=== PATIENT | female | born 1970 | race American Indian/Alaskan Native ===

== ENCOUNTER 2018-05-10 08:57 | Emergency (ER) | payer MEDICAID, OTHER, SELFPAY ==
[2018-05-10 09:00] VITALS: BP 104/87; PULSE 80; RESP 14; TEMP 36.6; O2SAT 100; BMI 44.2
--- NOTE | 2018-05-10 09:08 | DI.RAD.S_ITS ---
PROCEDURE: XR CHEST 2V INDICATIONS: anterior chest pain TECHNIQUE: 2 views of the chest were acquired. COMPARISON: [facility], , CHEST 1 VIEW, 02/26/2012, 0:31. FINDINGS: Surgical changes and devices: None. Lungs and pleura: No pleural effusions or pneumothorax. Lungs are clear. Mediastinum: Mediastinal contours are normal. Heart size is normal. Bones and chest wall: No suspicious bony abnormalities. Soft tissues appear unremarkable. IMPRESSION: No acute pulmonary process. Dictated by: Charlotte Garnt M.D. on 05/10/2018 at 9:46 Approved by: Charlotte Grant M.D. on 05/10/2018 at 9:46
[2018-05-10 09:20] LABS: Add Manual Diff / Slide Review NO; Basophils Percent Auto 0.6 % (0-2); Eosinophils Percent Auto 2.7 % (2-4); Hematocrit 40.6 % (36-46); Hemoglobin 13.3 g/dL (12.0-16.0); Lymphocytes Percent Auto 33.3 % (25-40); Mean Corpuscular HGB Conc 32.8 % (30-36); Mean Corpuscular Hemoglobin 30.3 PG (26-34); Mean Corpuscular Volume 92.5 fL (80-100); Monocytes Percent Auto 5.2 % (3-14); Neutrophils Absolute Auto 5200 /uL (1500-7000); Neutrophils Percent Auto 58.2 % (50-75); Platelet Count 356 X10^3/uL (150-400); Red Blood Cell Count 4.39 X10^6/uL (4.0-5.2); Red Cell Distribution Width 14.9 % (11.6-14.8); White Blood Cell Count 8.9 X10^3/uL (4.5-11.0)
[2018-05-10 09:31] LABS: Alanine Aminotransferase 20 IU/L (9-52); Albumin 4.2 g/dL (3.5-5.0); Albumin Globulin Ratio 1.1 (1.0-2.8); Alkaline Phosphatase 73 U/L (38-126); Aspartate Aminotransferase 22 IU/L (14-36); BUN Creatinine Ratio 17.5 (6-22); Bilirubin Total 0.4 mg/dL (0.2-1.3); Blood Urea Nitrogen 14 mg/dL (7-17); Calcium 8.7 mg/dL (8.4-10.2); Carbon Dioxide 25 mmol/L (22-32); Chloride 108 mmol/L (98-107); Creatine Kinase 68 U/L (30-135); Estimated Glomerular Filt Rate > 60.0 mL/min (>60); Globulin 3.7 g/dL (1.7-4.1); Glucose 103 mg/dL (70-100); HEMOLYSIS < 15 (0-50); Lipase 72 U/L (23-300); Potassium 4.3 mmol/L (3.4-5.1); Sodium 146 mmol/L (137-145); Total Protein 7.9 g/dL (6.3-8.2)
[2018-05-10] MEDS: ASPIRIN 81 MG TAB 324 MG PO (09:38)
[2018-05-10] MEDS: SODIUM CHLORIDE 0.9% 1,000 ML 150 ML IV (09:39)
[2018-05-10 09:43] LABS: Troponin I < 0.012 ng/mL (0.01-0.034)
--- NOTE | 2018-05-10 09:48 | ED.CHESTPAIN ---
HPI - Chest Pain General Chief Complaint: Chest Pain Stated Complaint: CHEST PAIN Time Seen by Provider: 05/10/18 08:58 Source: patient and family Mode of arrival: ambulatory Limitations: no limitations History of Present Illness HPI narrative: 47-year-old female presents with multiple family members in the chief complaint of anterior chest pain that is sharp and stabbing in nature which started yesterday. She has recently had upper respiratory type symptoms including runny nose, sneezing and cough. Her pain is worse with motion, deep breath, palpation and cough. She denies fever or chills. She is not dizzy nor weak or lightheaded. She has had some nausea but denies any vomiting or diarrhea. MD complaint: chest pain Onset (ago): day(s) Duration: intermittent Onset: during rest Severity: mild Quality: sharp Pain radiation: none Relieving factors: remaining still Exacerbating factors: inspiration, palpation and movement Context: recent illness Treatments prior to arrival chest pain: none Related Data On Oral Contraceptives: No Home Medications Medication Instructions Recorded Confirmed No Known Home Medications 05/10/18 05/10/18 Previous Rx's Medication Instructions Recorded ketorolac 10 mg PO Q6H PRN #14 tab 05/10/18 Allergies Allergy/AdvReac Type Severity Reaction Status Date / Time dicyclomine [DICYCLOMINE] Allergy Unknown Unverified 08/28/17 12:20 ibuprofen [IBUPROFEN] Allergy Unknown Unverified 08/28/17 12:20 meloxicam [MELOXICAM] Allergy Unknown Unverified 08/28/17 12:20 Review of Systems Review of Systems All systems reviewed & are unremarkable except as noted in HPI and below Constitutional Denies chills, Denies fever(s), Denies lethargy and Denies weakness Eyes Denies change in vision, Denies eye discharge, Denies irritation and Denies loss of vision ENT Ears, Nose, Mouth, and Throat: Denies change in voice, Denies neck pain and Denies sore throat Cardiovascular Reports chest pain, Denies irregular heart rhythm, Denies lightheadedness, Denies palpitations, Denies dyspnea, Denies dyspnea on exertion and Denies orthopnea Respiratory Reports cough, Reports pain on inspiration, Reports pain with cough, Denies dyspnea, Denies dyspnea on exertion and Denies wheezing Gastrointestinal Gastrointestinal: Denies abdominal pain, Denies change in bowel habits, Denies diarrhea, Denies nausea and Denies vomiting Genitourinary Denies hematuria, Denies flank pain, Denies urinary incontinence and Denies urinary urgency Musculoskeletal Denies neck pain Integumentary/Breasts Denies pruritus, Denies erythema, Denies rash and Denies wounds Neurologic Denies confusion, Denies loss of vision and Denies weakness Psychiatric Denies anxiety, Denies confusion, Denies depression, Denies homicidal ideation and Denies suicidal ideation Endocrine Denies palpitations Hematologic/Lymphatic Denies easy bruising Allergic/Immunologic Denies wheezing [facility] Social History Smoking Status: Former smoker Exam Narrative Exam Narrative: GENERAL: 47-year-old female, former smoker, morbidly obese, in mild distress HEAD: Atraumatic. Normocephalic. No temporal or scalp tenderness. EYES: Pupils equal round and reactive. Extraocular motions intact. No scleral icterus. No injection or drainage. ENT: Nose without bleeding, purulent drainage or septal hematoma. Throat without erythema, tonsillar hypertrophy or exudate. Uvula midline. Airway patent. NECK: Trachea midline. No JVD or lymphadenopathy. Supple, nontender, no meningeal signs. CARDIOVASCULAR: Regular rate and rhythm without murmurs, gallops, or rubs. Sharp, reproducible pain to palpation, motion and changing position RESPIRATORY: Clear to auscultation. Breath sounds equal bilaterally. No wheezes, rales, or rhonchi. GASTROINTESTINAL: Abdomen soft, non-tender, nondistended. No hepato-splenomegaly, or palpable masses. No guarding. EXTREMITIES: No clubbing, cyanosis, or edema. No joint tenderness, effusion, or edema noted. BACK: Nontender without deformity or crepitance. No flank tenderness. NEURO: AOx3. SKIN: No rash or erythema. Initial Vital Signs Initial Vital Signs: Vital Signs Temperature 97.8 F 05/10/18 09:00 Pulse Rate 80 05/10/18 09:00 Respiratory Rate 14 05/10/18 09:00 Blood Pressure 104/87 05/10/18 09:00 Pulse Oximetry 100 05/10/18 09:00 Course Orders Ordered: ED Orders 05/10/18 09:07 EKG-12 Lead Stat 05/10/18 09:08 XR chest 2V Stat 05/10/18 09:11 Complete Blood Count AUTO DIFF Stat Comprehensive Metabolic Panel Stat Lipase Stat Troponin & CK Cardiac Panel Stat Discontinued Medications Aspirin (Aspirin Chew) 324 mg PO NOW ONE Stop: 05/10/18 09:05 Last Admin: 05/10/18 09:38 Dose: 324 mg Sodium Chloride (Normal Saline 0.9%) 1,000 mls @ 150 mls/hr IV CONT SEBASTIAN Last Infusion: 05/10/18 11:25 Dose: 0 mls/hr Admin: 05/10/18 09:39 Dose: 150 mls/hr Ketorolac Tromethamine (Toradol) 15 mg IV NOW ONE Stop: 05/10/18 10:36 Last Admin: 05/10/18 10:50 Dose: 15 mg Reevaluation(s) Reevaluation #1: Patient resting comfortably. She states she does not have an allergy to ibuprofen and in fact takes it fairly regularly without any difficulty. I mentioned this as the computer states a listed allergy to ibuprofen and meloxicam. Vital Signs - 8 hr 05/10/18 09:00 05/10/18 10:24 05/10/18 11:27 Temperature 97.8 F Pulse Rate 80 73 72 Respiratory Rate 14 19 19 Blood Pressure 104/87 129/88 Blood Pressure [Left Arm] 129/65 Pulse Oximetry 100 99 99 MDM - Chest Pain Differential Diagnosis Likely stable angina, atypical chest pain, st elevation myocardial infarction, costochondritis and chest pain Medical Records Data Attestation: I reviewed the patient's medical records. Lab Data Attestation: I reviewed the patient's lab results. Result diagrams: 05/10/18 09:11 05/10/18 09:11 Lab Results 05/10/18 05/10/18 Range/Units 09:11 09:11 WBC 8.9 (4.5-11.0) X10^3/uL RBC 4.39 (4.0-5.2) X10^6/uL Hgb 13.3 (12.0-16.0) g/dL Hct 40.6 (36-46) % MCV 92.5 (80-100) fL MCH 30.3 (26-34) PG MCHC 32.8 (30-36) % RDW 14.9 H (11.6-14.8) % Plt Count 356 (150-400) X10^3/uL Neut % (Auto) 58.2 (50-75) % Lymph % (Auto) 33.3 (25-40) % [place] % (Auto) 5.2 (3-14) % Eos % (Auto) 2.7 (2-4) % Baso % (Auto) 0.6 (0-2) % Neut # (Auto) 5200 (5384-0888) /uL Sodium 146 H (137-145) mmol/L Potassium 4.3 (3.4-5.1) mmol/L Chloride 108 H (98-107) mmol/L Carbon Dioxide 25 (22-32) mmol/L BUN 14 (7-17) mg/dL Creatinine 0.80 (0.52-1.04) mg/dL Estimated GFR > 60.0 (>60) mL/min BUN/Creatinine Ratio 17.5 (6-22) Glucose 103 H (70-100) mg/dL Calcium 8.7 (8.4-10.2) mg/dL Total Bilirubin 0.4 (0.2-1.3) mg/dL AST 22 (14-36) IU/L ALT 20 (9-52) IU/L Alkaline Phosphatase 73 (38-126) U/L Total Creatine Kinase 68 (30-135) U/L CK-MB (CK-2) TNP CK-MB (CK-2) Rel Index TNP Troponin I < 0.012 (0.01-0.034) ng/mL Total Protein 7.9 (6.3-8.2) g/dL Albumin 4.2 (3.5-5.0) g/dL Globulin 3.7 (1.7-4.1) g/dL Albumin/Globulin Ratio 1.1 (1.0-2.8) Lipase 72 (23-300) U/L Imaging Data Chest x-ray: Radiologist's impression: [address] [address] XRay Report Signed Patient: Leslie Smith MR#: [id number] : 1970 Acct:[id number] Age/Sex: 47 / F Date of Service: 05/10/18 Loc: ED Accession Number: [id number] Procedure: XR chest 2V Ordering Provider: Colt Santos D.O. PROCEDURE: XR CHEST 2V INDICATIONS: anterior chest pain TECHNIQUE: 2 views of the chest were acquired. COMPARISON: [facility], , CHEST 1 VIEW, 02/26/2012, 0:31. FINDINGS: Surgical changes and devices: None. Lungs and pleura: No pleural effusions or pneumothorax. Lungs are clear. Mediastinum: Mediastinal contours are normal. Heart size is normal. Bones and chest wall: No suspicious bony abnormalities. Soft tissues appear unremarkable. IMPRESSION: No acute pulmonary process. Dictated by: Charlotte Grant M.D. on 05/10/2018 at 9:46 Approved by: Charlotte Grant M.D. on 05/10/2018 at 9:46 ECG Data Attestation: I personally reviewed and interpreted this ECG as follows: Prior ECG tracings: not available for review Interpretation: EKG is normal sinus rhythm rate [76 ] and free of any signs of ischemia or ectopy. No ST segmental elevation or depression. No T wave inversions MDM Narrative Medical decision making narrative: 47-year-old female with sharp, stabbing reproducible anterior chest pain. Considered myocardial infarction but thought less likely given lack of EKG findings, description of nonischemic type pain, and normal troponin. Pneumonia considered but no findings on exam or chest x-ray. Costochondritis thought most likely diagnosis given history, physical exam findings, lack of abnormal labs Discharge Plan Departure Patient Disposition: Home Clinical Impression: Costochondritis Discharge Date/Time: 05/10/18 11:27 Interventions: ED Discharge Assessment Last Done: 05/10/18 11:27 Instructions: DI for Costochondritis Activity Restrictions/Additional Instructions: *You have been diagnosed with [ acute costochondritis ] *What to do: *Take medications as directed: Your prescription has been electronically transmitted to [email or web address] at your request *Follow up with your primary care provider in 2-3 days, call for an appointment. Let them know you were seen in the Emergency Department and that we ask that you be seen in follow up *Return to ER if you should have any new, worsening or concerning symptoms * do not take any NSAIDs such as ibuprofen, Advil, Naprosyn, Aleve while you are taking ketorolac as they are in the same family and this can cause trouble Prescriptions: New ketorolac 10 mg tablet 10 mg PO Q6H PRN (Reason: pain) Qty: 14 RF: 0 No Action No Known Home Medications RF: 0 Referrals: Declan Britton MD [Primary Care Provider] - Stand Alone Forms: Work Release Note
--- NOTE | 2018-05-10 09:54 | ED_ITS ---
HPI - Chest Pain General Chief Complaint: Chest Pain Stated Complaint: CHEST PAIN Time Seen by Provider: 05/10/18 08:58 Source: patient and family Mode of arrival: ambulatory Limitations: no limitations History of Present Illness HPI narrative: 47-year-old female presents with multiple family members in the chief complaint of anterior chest pain that is sharp and stabbing in nature which started yesterday. She has recently had upper respiratory type symptoms including runny nose, sneezing and cough. Her pain is worse with motion, deep breath, palpation and cough. She denies fever or chills. She is not dizzy nor weak or lightheaded. She has had some nausea but denies any vomiting or diarrhea. MD complaint: chest pain Onset (ago): day(s) Duration: intermittent Onset: during rest Severity: mild Quality: sharp Pain radiation: none Relieving factors: remaining still Exacerbating factors: inspiration, palpation and movement Context: recent illness Treatments prior to arrival chest pain: none Related Data On Oral Contraceptives: No Home Medications Medication Instructions Recorded Confirmed No Known Home Medications 05/10/18 05/10/18 Previous Rx's Medication Instructions Recorded ketorolac 10 mg PO Q6H PRN #14 tab 05/10/18 Allergies Allergy/AdvReac Type Severity Reaction Status Date / Time dicyclomine [DICYCLOMINE] Allergy Unknown Unverified 08/28/17 12:20 ibuprofen [IBUPROFEN] Allergy Unknown Unverified 08/28/17 12:20 meloxicam [MELOXICAM] Allergy Unknown Unverified 08/28/17 12:20 Review of Systems Review of Systems All systems reviewed & are unremarkable except as noted in HPI and below Constitutional Denies chills, Denies fever(s), Denies lethargy and Denies weakness Eyes Denies change in vision, Denies eye discharge, Denies irritation and Denies loss of vision ENT Ears, Nose, Mouth, and Throat: Denies change in voice, Denies neck pain and Denies sore throat Cardiovascular Reports chest pain, Denies irregular heart rhythm, Denies lightheadedness, Denies palpitations, Denies dyspnea, Denies dyspnea on exertion and Denies orthopnea Respiratory Reports cough, Reports pain on inspiration, Reports pain with cough, Denies dyspnea, Denies dyspnea on exertion and Denies wheezing Gastrointestinal Gastrointestinal: Denies abdominal pain, Denies change in bowel habits, Denies diarrhea, Denies nausea and Denies vomiting Genitourinary Denies hematuria, Denies flank pain, Denies urinary incontinence and Denies urinary urgency Musculoskeletal Denies neck pain Integumentary/Breasts Denies pruritus, Denies erythema, Denies rash and Denies wounds Neurologic Denies confusion, Denies loss of vision and Denies weakness Psychiatric Denies anxiety, Denies confusion, Denies depression, Denies homicidal ideation and Denies suicidal ideation Endocrine Denies palpitations Hematologic/Lymphatic Denies easy bruising Allergic/Immunologic Denies wheezing [facility] Social History Smoking Status: Former smoker Exam Narrative Exam Narrative: GENERAL: 47-year-old female, former smoker, morbidly obese, in mild distress HEAD: Atraumatic. Normocephalic. No temporal or scalp tenderness. EYES: Pupils equal round and reactive. Extraocular motions intact. No scleral icterus. No injection or drainage. ENT: Nose without bleeding, purulent drainage or septal hematoma. Throat without erythema, tonsillar hypertrophy or exudate. Uvula midline. Airway patent. NECK: Trachea midline. No JVD or lymphadenopathy. Supple, nontender, no meningeal signs. CARDIOVASCULAR: Regular rate and rhythm without murmurs, gallops, or rubs. Sharp , reproducible pain to palpation, motion and changing position RESPIRATORY: Clear to auscultation. Breath sounds equal bilaterally. No wheezes , rales, or rhonchi. GASTROINTESTINAL: Abdomen soft, non-tender, nondistended. No hepato-splenomegaly , or palpable masses. No guarding. EXTREMITIES: No clubbing, cyanosis, or edema. No joint tenderness, effusion, or edema noted. BACK: Nontender without deformity or crepitance. No flank tenderness. NEURO: AOx3. SKIN: No rash or erythema. Initial Vital Signs Initial Vital Signs: Vital Signs Temperature 97.8 F 05/10/18 09:00 Pulse Rate 80 05/10/18 09:00 Respiratory Rate 14 05/10/18 09:00 Blood Pressure 104/87 05/10/18 09:00 Pulse Oximetry 100 05/10/18 09:00 Course Orders Ordered: ED Orders 05/10/18 09:07 EKG-12 Lead Stat 05/10/18 09:08 XR chest 2V Stat 05/10/18 09:11 Complete Blood Count AUTO DIFF Stat Comprehensive Metabolic Panel Stat Lipase Stat Troponin & CK Cardiac Panel Stat Discontinued Medications Aspirin (Aspirin Chew) 324 mg PO NOW ONE Stop: 05/10/18 09:05 Last Admin: 05/10/18 09:38 Dose: 324 mg Sodium Chloride (Normal Saline 0.9%) 1,000 mls @ 150 mls/hr IV CONT SEBASTIAN Last Infusion: 05/10/18 11:25 Dose: 0 mls/hr Admin: 05/10/18 09:39 Dose: 150 mls/hr Ketorolac Tromethamine (Toradol) 15 mg IV NOW ONE Stop: 05/10/18 10:36 Last Admin: 05/10/18 10:50 Dose: 15 mg Reevaluation(s) Reevaluation #1: Patient resting comfortably. She states she does not have an allergy to ibuprofen and in fact takes it fairly regularly without any difficulty. I mentioned this as the computer states a listed allergy to ibuprofen and meloxicam. Vital Signs - 8 hr 05/10/18 09:00 05/10/18 10:24 05/10/18 11:27 Temperature 97.8 F Pulse Rate 80 73 72 Respiratory Rate 14 19 19 Blood Pressure 104/87 129/88 Blood Pressure [Left Arm] 129/65 Pulse Oximetry 100 99 99 MDM - Chest Pain Differential Diagnosis Likely stable angina, atypical chest pain, st elevation myocardial infarction, costochondritis and chest pain Medical Records Data Attestation: I reviewed the patient's medical records. Lab Data Attestation: I reviewed the patient's lab results. Result diagrams: 05/10/18 09:11 05/10/18 09:11 Lab Results 05/10/18 05/10/18 Range/Units 09:11 09:11 WBC 8.9 (4.5-11.0) X10^3/uL RBC 4.39 (4.0-5.2) X10^6/uL Hgb 13.3 (12.0-16.0) g/dL Hct 40.6 (36-46) % MCV 92.5 (80-100) fL MCH 30.3 (26-34) PG MCHC 32.8 (30-36) % RDW 14.9 H (11.6-14.8) % Plt Count 356 (150-400) X10^3/uL Neut % (Auto) 58.2 (50-75) % Lymph % (Auto) 33.3 (25-40) % [place] % (Auto) 5.2 (3-14) % Eos % (Auto) 2.7 (2-4) % Baso % (Auto) 0.6 (0-2) % Neut # (Auto) 5200 (1950-7381) /uL Sodium 146 H (137-145) mmol/L Potassium 4.3 (3.4-5.1) mmol/L Chloride 108 H (98-107) mmol/L Carbon Dioxide 25 (22-32) mmol/L BUN 14 (7-17) mg/dL Creatinine 0.80 (0.52-1.04) mg/dL Estimated GFR > 60.0 (>60) mL/min BUN/Creatinine Ratio 17.5 (6-22) Glucose 103 H (70-100) mg/dL Calcium 8.7 (8.4-10.2) mg/dL Total Bilirubin 0.4 (0.2-1.3) mg/dL AST 22 (14-36) IU/L ALT 20 (9-52) IU/L Alkaline Phosphatase 73 (38-126) U/L Total Creatine Kinase 68 (30-135) U/L CK-MB (CK-2) TNP CK-MB (CK-2) Rel Index TNP Troponin I < 0.012 (0.01-0.034) ng/mL Total Protein 7.9 (6.3-8.2) g/dL Albumin 4.2 (3.5-5.0) g/dL Globulin 3.7 (1.7-4.1) g/dL Albumin/Globulin Ratio 1.1 (1.0-2.8) Lipase 72 (23-300) U/L Imaging Data Chest x-ray: Radiologist's impression: [address] [address] XRay Report Signed Patient: Leslie Smith MR#: [id number] : 1970 Acct:[id number] Age/Sex: 47 / F Date of Service: 05/10/18 Loc: ED Accession Number: [id number] Procedure: XR chest 2V Ordering Provider: Colt Santos D.O. PROCEDURE: XR CHEST 2V INDICATIONS: anterior chest pain TECHNIQUE: 2 views of the chest were acquired. COMPARISON: [facility], , CHEST 1 VIEW, 02/26/2012, 0:31. FINDINGS: Surgical changes and devices: None. Lungs and pleura: No pleural effusions or pneumothorax. Lungs are clear. Mediastinum: Mediastinal contours are normal. Heart size is normal. Bones and chest wall: No suspicious bony abnormalities. Soft tissues appear unremarkable. IMPRESSION: No acute pulmonary process. Dictated by: Charlotte Grant M.D. on 05/10/2018 at 9:46 Approved by: Charlotte Grant M.D. on 05/10/2018 at 9:46 ECG Data Attestation: I personally reviewed and interpreted this ECG as follows: Prior ECG tracings: not available for review Interpretation: EKG is normal sinus rhythm rate [76 ] and free of any signs of ischemia or ectopy. No ST segmental elevation or depression. No T wave inversions MDM Narrative Medical decision making narrative: 47-year-old female with sharp, stabbing reproducible anterior chest pain. Considered myocardial infarction but thought less likely given lack of EKG findings, description of nonischemic type pain, and normal troponin. Pneumonia considered but no findings on exam or chest x- ray. Costochondritis thought most likely diagnosis given history, physical exam findings, lack of abnormal labs Discharge Plan Departure Patient Disposition: Home Clinical Impression: Costochondritis Discharge Date/Time: 05/10/18 11:27 Interventions: ED Discharge Assessment Last Done: 05/10/18 11:27 Instructions: DI for Costochondritis Activity Restrictions/Additional Instructions: *You have been diagnosed with [ acute costochondritis ] *What to do: *Take medications as directed: Your prescription has been electronically transmitted to [email or web address] at your request *Follow up with your primary care provider in 2-3 days, call for an appointment. Let them know you were seen in the Emergency Department and that we ask that you be seen in follow up *Return to ER if you should have any new, worsening or concerning symptoms * do not take any NSAIDs such as ibuprofen, Advil, Naprosyn, Aleve while you are taking ketorolac as they are in the same family and this can cause trouble Prescriptions: New ketorolac 10 mg tablet 10 mg PO Q6H PRN (Reason: pain) Qty: 14 RF: 0 No Action No Known Home Medications RF: 0 Referrals: Declan Britton MD [Primary Care Provider] - Stand Alone Forms: Work Release Note
[2018-05-10 10:24] VITALS: BP 129/65; PULSE 73; RESP 19; O2SAT 99
[2018-05-10] MEDS: KETOROLAC 60 MG/2 ML VIAL 15 MG IV (10:50)
[2018-05-10 11:27] VITALS: BP 129/88; PULSE 72; RESP 19; O2SAT 99
== END 2018-05-10 11:27 | disposition home or self-care (01) ==
PROVIDERS: Emergency Provider Emergency Medicine; PCP Family Medicine
DX: M94.0 Chondrocostal junction syndrome [Tietze] (principal)
CPT/HCPCS: 36591; 71046; 80053; 82550; 83690; 84484; 85025; 93005; 96361; 96374; 99283; 99285; J1885

== ENCOUNTER 2018-06-04 16:17 | Emergency (ER) | payer MEDICAID, OTHER, SELFPAY ==
[2018-06-04 16:21] VITALS: BP 130/69; PULSE 80; RESP 12; TEMP 36.9; O2SAT 100; BMI 39.4
--- NOTE | 2018-06-04 16:37 | ED.ABDPAIN ---
HPI - Abdominal Pain General Chief Complaint: Abdominal Pain Stated Complaint: STOMACH AND CHEST PAINS Time Seen by Provider: 06/04/18 16:23 Source: patient and family Mode of arrival: ambulatory Limitations: no limitations History of Present Illness HPI narrative: 48-year-old female presents with family for evaluation of ongoing right upper and right sided upper abdominal pain. She has had nausea but denies any vomiting. She denies fever or chills. She states eating and moving make her pain worse. She was seen for the same few weeks ago and diagnosed with costochondritis. She took Toradol but it is no longer helping. MD complaint: abdominal pain Onset (ago): week(s) Pain Consistency: constant Location: RUQ and R flank Severity: moderate Quality: cramping and aching Radiation: none Migration to: no migration Relieving factors: nothing Exacerbating factors: eating and movement Associated symptoms: denies other symptoms Related Data Previous Rx's Medication Instructions Recorded amoxicillin-pot clavulanate 1 tab PO BID #20 tab 06/04/18 [Augmentin] hydrocodone-acetaminophen 1 tab PO Q4-6H PRN #10 tab 06/04/18 ondansetron 4 mg PO TID-QID PRN #10 tab 06/04/18 Allergies Allergy/AdvReac Type Severity Reaction Status Date / Time dicyclomine [DICYCLOMINE] Allergy Unknown Unverified 06/04/18 16:24 ibuprofen [IBUPROFEN] Allergy Unknown Unverified 06/04/18 16:24 meloxicam [MELOXICAM] Allergy Unknown Unverified 06/04/18 16:24 Review of Systems Constitutional Denies chills, Denies fever(s), Denies lethargy and Denies weakness Eyes Denies change in vision, Denies eye discharge, Denies irritation and Denies loss of vision ENT Ears, Nose, Mouth, and Throat: Denies change in voice, Denies neck pain and Denies sore throat Cardiovascular Denies chest pain, Denies irregular heart rhythm, Denies lightheadedness, Denies palpitations, Denies dyspnea, Denies dyspnea on exertion and Denies orthopnea Respiratory Denies cough, Denies dyspnea, Denies dyspnea on exertion and Denies wheezing Gastrointestinal Gastrointestinal: Reports abdominal pain, Denies change in bowel habits, Denies diarrhea, Denies nausea and Denies vomiting Genitourinary Denies hematuria, Denies flank pain, Denies urinary incontinence and Denies urinary urgency Musculoskeletal Denies neck pain Integumentary/Breasts Denies pruritus, Denies erythema, Denies rash and Denies wounds Neurologic Denies confusion, Denies loss of vision and Denies weakness Psychiatric Denies anxiety, Denies confusion, Denies depression, Denies homicidal ideation and Denies suicidal ideation Endocrine Denies palpitations Hematologic/Lymphatic Denies easy bruising Allergic/Immunologic Denies wheezing [facility] Social History Smoking Status: Former smoker Exam Narrative Exam Narrative: 48-year-old female, appears stated age, obviously uncomfortable and clutching her right side abdomen Initial Vital Signs Initial Vital Signs: Vital Signs Temperature 98.4 F 06/04/18 16:21 Pulse Rate 80 06/04/18 16:21 Respiratory Rate 12 06/04/18 16:21 Blood Pressure 130/69 06/04/18 16:21 Pulse Oximetry 100 06/04/18 16:21 Const General: cooperative, well developed and in distress Nutritional Appearance: well nourished Orientation: alert, awake, oriented x3 and not confused HENMT Head: normocephalic and atraumatic Ears: external ears normal and TM's normal bilaterally Nose: external nose normal and No nasal discharge Face and sinus: sinuses nontender, face symmetric, no sinus tenderness and No dry mucous membranes Mouth: oral mucosae normal and moist mucous membranes Teeth and gingiva: dentition normal Throat: tonsils normal and uvula midline Eyes General: appearance normal, both eyes and all related structures Eyelids: eyelids normal Conjunctivae: conjunctivae normal Sclera: sclerae normal Pupils: PERRL EOM: EOM intact bilaterally Neck Neck: normal visual inspection, trachea midline, No lymphadenopathy, No midline deformity and No JVD Lymphatic: No lymphedema Resp Effort & Inspection: normal respiratory effort, able to speak in complete sentences, no respiratory distress and no use of accessory muscles Auscultation: clear to auscultation bilaterally, no rales, no rhonchi and no wheezes GI Inspection: non-distended Palpation: soft, no hepatosplenomegaly, No guarding, No pulsatile mass and tender (Right upper) Auscultation: normal bowel sounds Back/Spine/Pelvis Back: No CVA tenderness Cervical Spine: cervical ROM normal and No pain with cervical ROM Thoracic/Lumbar Spine: thoracic and lumbar spine normal to inspection Neuro General: alert, oriented x3, gait normal and no focal motor deficits Speech: speech normal Psych Appearance: well kempt Mental Status: mental status grossly normal Attitude: cooperative Thought Content: normal and suicidality Judgment: judgment good Course Orders Ordered: Discontinued Medications Acetaminophen (Tylenol) 650 mg PO NOW ONE Stop: 06/04/18 18:17 Last Admin: 06/04/18 18:32 Dose: 650 mg Sodium Chloride (Normal Saline 0.9%) 1,000 mls @ 150 mls/hr IV CONT SEBASTIAN Last Admin: 06/04/18 17:05 Dose: Not Given Sodium Chloride (Normal Saline 0.9%) 1,000 mls @ 150 mls/hr IV CONT SEBASTIAN Last Admin: 06/04/18 17:18 Dose: 150 mls/hr Reevaluation(s) Reevaluation #1: Patient feeling better after above-stated therapies Vital Signs - 8 hr 06/04/18 16:21 Temperature 98.4 F Pulse Rate 80 Respiratory Rate 12 Blood Pressure 130/69 Pulse Oximetry 100 MDM - Abdominal Pain Medical Records Attestation: I reviewed the patient's medical records. Lab Data Attestation: I reviewed the patient's lab results. Result diagrams: 06/04/18 17:15 06/04/18 17:15 Lab Results 06/04/18 06/04/18 06/04/18 Range/Units 17:15 17:15 17:15 WBC 9.9 (4.5-11.0) X10^3/uL RBC 4.18 (4.0-5.2) X10^6/uL Hgb 12.2 (12.0-16.0) g/dL Hct 37.7 (36-46) % MCV 90.3 (80-100) fL MCH 29.3 (26-34) PG MCHC 32.4 (30-36) % RDW 15.1 H (11.6-14.8) % Plt Count 410 H (150-400) X10^3/uL Neut % (Auto) 64.3 (50-75) % Lymph % (Auto) 27.5 (25-40) % [place] % (Auto) 6.0 (3-14) % Eos % (Auto) 1.7 L (2-4) % Baso % (Auto) 0.5 (0-2) % Neut # (Auto) 6400 (8840-5197) /uL Lymph # (Auto) 2700 (1092-4848) /uL [place] # (Auto) 600 (0-900) /uL Eos # (Auto) 200 (0-450) /uL Baso # (Auto) 100 (0-100) /uL D-Dimer 311 H (<230) ng/mL Sodium 143 (137-145) mmol/L Potassium 4.0 (3.4-5.1) mmol/L Chloride 108 H (98-107) mmol/L Carbon Dioxide 25 (22-32) mmol/L BUN 13 (7-17) mg/dL Creatinine 0.90 (0.52-1.04) mg/dL Estimated GFR > 60.0 (>60) mL/min BUN/Creatinine Ratio 14.4 (6-22) Glucose 102 H (70-100) mg/dL Calcium 8.8 (8.4-10.2) mg/dL Total Bilirubin 0.4 (0.2-1.3) mg/dL AST 29 (14-36) IU/L ALT 25 (9-52) IU/L Alkaline Phosphatase 83 (38-126) U/L Total Creatine Kinase 130 (30-135) U/L CK-MB (CK-2) 0.91 (<2.37) ng/mL CK-MB (CK-2) Rel Index 0.7 L (1.5-5.0) % Troponin I < 0.012 (0.01-0.034) ng/mL Total Protein 8.1 (6.3-8.2) g/dL Albumin 4.1 (3.5-5.0) g/dL Globulin 4.0 (1.7-4.1) g/dL Albumin/Globulin Ratio 1.0 (1.0-2.8) Lipase 83 (23-300) U/L Imaging Data CT scan - abdomen: Radiologist's impression: PROCEDURE: CT ANGIO CHEST ABDOMEN INDICATIONS: severe chest pain, radiation to back TECHNIQUE: Precontrast 5 mm thick sections acquired from the lung apices to the iliac crests. After the administration of intravenous contrast, 2.5 mm thick sections again acquired from the lung apices to the iliac crests. 10 mm maximum intensity projection (MIP) oblique sagittal and coronal reformats were then acquired. For radiation dose reduction, the following was used: automated exposure control. COMPARISON: [facility], CT, CT ABD PELVIS W CON, 10/25/2015, 4:42. [facility], CT, ABDOMEN/PELVIS WITHOUT CONTRAS, 04/27/2014, 1:00. FINDINGS: Image quality: Excellent. AORTA: No acute intramural hematoma, dissection, periaortic hematoma, or aortic ulcer. CHEST: Lungs and pleura: No acute airspace opacities. No pleural effusions or pneumothorax. Central and peripheral airways are patent and normal in caliber. Mediastinum: Heart size is normal. No pericardial effusion. No mediastinal or hilar adenopathy by size criteria. Central pulmonary arteries are normal in size. Bones and chest wall: No suspicious bony lesions. No vertebral body compression fractures. There are mild degenerative changes of the thoracic spine. ABDOMEN: Vasculature: Celiac trunk and mesenteric arteries are patent. Renal arteries are also patent. Solid organs: There is diffuse hepatic steatosis. Gallbladder is surgically absent. Biliary system is non dilated. Pancreas enhances normally. Spleen is normal in size and enhancement. No adrenal nodules. Diaphysis. There is bilateral renal cortical lobulation, likely the sequela of prior chronic insult. Peritoneum and bowel: No free fluid or air. Bowel loops are normal in caliber and wall thickness. There is diffuse colonic diverticulosis. There is mild pericolonic fat stranding surrounding the sigmoid colon. No right lower quadrant inflammatory findings to suggest acute appendicitis. Nodes and vessels: There are mildly prominent mesenteric lymph nodes, including a 1.8 x 0.9 cm lymph node in the lower midabdomen on axial image 143 of series 5. Bones: No suspicious bony lesions. No vertebral body compression fractures. There are moderate multilevel degenerative changes of the lumbar spine. Miscellaneous: No ventral hernias. IMPRESSION: No CT evidence of acute aortic injury, dissection, ulcer, or intramural hematoma. Mild pericolonic edema surrounding the sigmoid colon diverticula may represent a mild diverticulitis in the appropriate clinical setting. Mildly prominent mesenteric lymph nodes are also noted, which may be reactive. Dictated by: Nic Rodriguez M.D. on 06/04/2018 at 18:35 Approved by: Nic Rodriguez M.D. on 06/04/2018 at 18:49 US - abdomen: Radiologist's impression: PROCEDURE: US ABDOMEN COMPLETE INDICATIONS: severe epigastric pain with radiation to back TECHNIQUE: Real-time scanning was performed of the abdominal and retroperitoneal organs, with image documentation. COMPARISON: None. FINDINGS: Liver: Right hepatic lobe measures 18.8 cm in sagittal diameter. There is increased hepatic echogenicity. Gallbladder: Not seen on this exam. Biliary ducts: Intrahepatic bile ducts are non-dilated. Extrahepatic bile duct caliber measures 5 mm. Pancreas: Visualized portions of the pancreatic head are sonographically normal. Pancreatic body and tail are obscured by overlying bowel gas. Spleen: Spleen is normal in size and homogeneous in echotexture. Kidneys: Kidneys are normal in size and echotexture. Right kidney measures 9.9 cm long; left kidney measures 11.7 cm long. No hydronephrosis or nephrolithiasis. No solid masses. Aorta: Visualized portions of the proximal and mid abdominal aorta are nondilated. The distal abdominal aorta is obscured by overlying bowel gas. Iliacs: Proximal common iliac arteries are obscured by overlying bowel gas. IVC: Intrahepatic inferior vena cava is patent. Miscellaneous: No free abdominal fluid. IMPRESSION: 1. Increased hepatic echogenicity, which can be seen in setting of hepatic steatosis, hepatic fibrosis/cirrhosis, and/or hepatitis. 2. Gallbladder not seen on this exam; recommend clinical correlation for history of prior cholecystectomy. Preliminary findings were discussed by the drop hammer operator helper with the referring provider Dr. Colt Santos at 1725 hrs. on 06/04/18. Dictated by: Nic Rodriguez M.D. on 06/04/2018 at 18:16 Approved by: Nic Rodriguez M.D. on 06/04/2018 at 18:21 [facility] Narrative Medical decision making narrative: Multiple etiologies for patient's symptoms considered including: [Gallbladder disease, pancreatitis bowel obstruction versus other] Patient's symptoms improved or duration of stay with above-stated therapies. Findings and discharge diagnosis discussed with patient/family followed by verbalization of understanding Return precautions discussed with patient/family whom verbalize understanding. Discharge Plan Departure Patient Disposition: Home Clinical Impression: Diverticulitis Discharge Date/Time: 06/04/18 19:23 Interventions: ED Discharge Assessment Last Done: 06/04/18 19:22 Instructions: Diverticulitis Activity Restrictions/Additional Instructions: 1. Drink plenty of fluids with frequent small sips. 2. For the next 24 hours a clear liquid diet is advised. After that please employ a brat diet which would include bananas, rice, apples, toast. 3. Please take medications as directed. 4. Please follow-up with your doctor in the next 1-2 days. Call the office for an appointment. 5. Please return to the emergency Department for any worsening or persistent symptoms, such as increasing pain or fever. Prescriptions: New hydrocodone-acetaminophen 5-325 mg tablet 1 tab PO Q4-6H PRN (Reason: pain) Qty: 10 RF: 0 ondansetron 4 mg tablet,disintegrating 4 mg PO TID-QID PRN (Reason: nausea and vomiting) Qty: 10 RF: 0 amoxicillin-pot clavulanate [Augmentin] 875-125 mg tablet 1 tab PO BID Qty: 20 RF: 0 Referrals: Declan Britton MD [Primary Care Provider] - Stand Alone Forms: Work Release Note
--- NOTE | 2018-06-04 16:41 | DI.US.S_ITS ---
PROCEDURE: US ABDOMEN COMPLETE INDICATIONS: severe epigastric pain with radiation to back TECHNIQUE: Real-time scanning was performed of the abdominal and retroperitoneal organs, with image documentation. COMPARISON: None. FINDINGS: Liver: Right hepatic lobe measures 18.8 cm in sagittal diameter. There is increased hepatic echogenicity. Gallbladder: Not seen on this exam. Biliary ducts: Intrahepatic bile ducts are non-dilated. Extrahepatic bile duct caliber measures 5 mm. Pancreas: Visualized portions of the pancreatic head are sonographically normal. Pancreatic body and tail are obscured by overlying bowel gas. Spleen: Spleen is normal in size and homogeneous in echotexture. Kidneys: Kidneys are normal in size and echotexture. Right kidney measures 9.9 cm long; left kidney measures 11.7 cm long. No hydronephrosis or nephrolithiasis. No solid masses. Aorta: Visualized portions of the proximal and mid abdominal aorta are nondilated. The distal abdominal aorta is obscured by overlying bowel gas. Iliacs: Proximal common iliac arteries are obscured by overlying bowel gas. IVC: Intrahepatic inferior vena cava is patent. Miscellaneous: No free abdominal fluid. IMPRESSION: 1. Increased hepatic echogenicity, which can be seen in setting of hepatic steatosis, hepatic fibrosis/cirrhosis, and/or hepatitis. 2. Gallbladder not seen on this exam; recommend clinical correlation for history of prior cholecystectomy. Preliminary findings were discussed by the electronic console display operator with the referring provider Dr. Colt Santos at 1725 hrs. on 06/04/18. Dictated by: Nic Rodriguez M.D. on 06/04/2018 at 18:16 Approved by: Nic Rodriguez M.D. on 06/04/2018 at 18:21
[2018-06-04] MEDS: SODIUM CHLORIDE 0.9% 1,000 ML 150 ML IV (17:18)
[2018-06-04 17:23] LABS: Add Manual Diff / Slide Review NO; Basophils Absolute Auto 100 /uL (0-100); Basophils Percent Auto 0.5 % (0-2); Eosinophils Absolute Auto 200 /uL (0-450); Eosinophils Percent Auto 1.7 % (2-4); Hematocrit 37.7 % (36-46); Hemoglobin 12.2 g/dL (12.0-16.0); Lymphocytes Absolute Auto 2700 /uL (1100-4500); Lymphocytes Percent Auto 27.5 % (25-40); Mean Corpuscular HGB Conc 32.4 % (30-36); Mean Corpuscular Hemoglobin 29.3 PG (26-34); Mean Corpuscular Volume 90.3 fL (80-100); Monocytes Absolute Auto 600 /uL (0-900); Neutrophils Absolute Auto 6400 /uL (1500-7000); Neutrophils Percent Auto 64.3 % (50-75); Platelet Count 410 X10^3/uL (150-400); Red Blood Cell Count 4.18 X10^6/uL (4.0-5.2); Red Cell Distribution Width 15.1 % (11.6-14.8); White Blood Cell Count 9.9 X10^3/uL (4.5-11.0)
[2018-06-04 17:30] VITALS: BP 118/46; PULSE 76; RESP 20; O2SAT 100
--- NOTE | 2018-06-04 17:31 | DI.CT.S_ITS ---
PROCEDURE: CT ANGIO CHEST ABDOMEN INDICATIONS: severe chest pain, radiation to back TECHNIQUE: Precontrast 5 mm thick sections acquired from the lung apices to the iliac crests. After the administration of intravenous contrast, 2.5 mm thick sections again acquired from the lung apices to the iliac crests. 10 mm maximum intensity projection (MIP) oblique sagittal and coronal reformats were then acquired. For radiation dose reduction, the following was used: automated exposure control. COMPARISON: [facility], CT, CT ABD PELVIS W CON, 10/25/2015, 4:42. [facility], CT, ABDOMEN/PELVIS WITHOUT CONTRAS, 04/27/2014, 1:00. FINDINGS: Image quality: Excellent. AORTA: No acute intramural hematoma, dissection, periaortic hematoma, or aortic ulcer. CHEST: Lungs and pleura: No acute airspace opacities. No pleural effusions or pneumothorax. Central and peripheral airways are patent and normal in caliber. Mediastinum: Heart size is normal. No pericardial effusion. No mediastinal or hilar adenopathy by size criteria. Central pulmonary arteries are normal in size. Bones and chest wall: No suspicious bony lesions. No vertebral body compression fractures. There are mild degenerative changes of the thoracic spine. ABDOMEN: Vasculature: Celiac trunk and mesenteric arteries are patent. Renal arteries are also patent. Solid organs: There is diffuse hepatic steatosis. Gallbladder is surgically absent. Biliary system is non dilated. Pancreas enhances normally. Spleen is normal in size and enhancement. No adrenal nodules. Diaphysis. There is bilateral renal cortical lobulation, likely the sequela of prior chronic insult. Peritoneum and bowel: No free fluid or air. Bowel loops are normal in caliber and wall thickness. There is diffuse colonic diverticulosis. There is mild pericolonic fat stranding surrounding the sigmoid colon. No right lower quadrant inflammatory findings to suggest acute appendicitis. Nodes and vessels: There are mildly prominent mesenteric lymph nodes, including a 1.8 x 0.9 cm lymph node in the lower midabdomen on axial image 143 of series 5. Bones: No suspicious bony lesions. No vertebral body compression fractures. There are moderate multilevel degenerative changes of the lumbar spine. Miscellaneous: No ventral hernias. IMPRESSION: No CT evidence of acute aortic injury, dissection, ulcer, or intramural hematoma. Mild pericolonic edema surrounding the sigmoid colon diverticula may represent a mild diverticulitis in the appropriate clinical setting. Mildly prominent mesenteric lymph nodes are also noted, which may be reactive. Dictated by: Nic Rodriguez M.D. on 06/04/2018 at 18:35 Approved by: Nic Rodriguez M.D. on 06/04/2018 at 18:49
[2018-06-04 17:32] LABS: D Dimer 311 ng/mL (<230)
[2018-06-04 17:35] LABS: Alanine Aminotransferase 25 IU/L (9-52); Albumin 4.1 g/dL (3.5-5.0); Alkaline Phosphatase 83 U/L (38-126); Aspartate Aminotransferase 29 IU/L (14-36); BUN Creatinine Ratio 14.4 (6-22); Bilirubin Total 0.4 mg/dL (0.2-1.3); Blood Urea Nitrogen 13 mg/dL (7-17); Calcium 8.8 mg/dL (8.4-10.2); Carbon Dioxide 25 mmol/L (22-32); Chloride 108 mmol/L (98-107); Creatine Kinase 130 U/L (30-135); Estimated Glomerular Filt Rate > 60.0 mL/min (>60); Glucose 102 mg/dL (70-100); HEMOLYSIS < 15 (0-50); Lipase 83 U/L (23-300); Sodium 143 mmol/L (137-145); Total Protein 8.1 g/dL (6.3-8.2)
[2018-06-04 17:50] LABS: CKMB % Relative Index 0.7 % (1.5-5.0); Creatine Kinase MB 0.91 ng/mL (<2.37)
[2018-06-04 18:03] LABS: Troponin I < 0.012 ng/mL (0.01-0.034)
[2018-06-04] MEDS: ACETAMINOPHEN 325 MG TABLET 650 MG PO (18:32)
[2018-06-04 19:10] VITALS: BP 129/58; PULSE 72; RESP 21; O2SAT 98
--- NOTE | 2018-06-22 20:30 | PC.NURSE ---
Late entry: Normal Saline stopped at 1920 on 06/04/18. Total intake of 300 mL.
== END 2018-06-04 19:23 | disposition home or self-care (01) ==
PROVIDERS: Emergency Provider Emergency Medicine; PCP Family Medicine
DX: K57.92 Diverticulitis of intestine, part unspecified, without perforation or abscess without bleeding (principal)
CPT/HCPCS: 36591; 71275; 74175; 76700; 80053; 82550; 82553; 83690; 84484; 85025; 85379; 96360; 96361; 99282; 99285; Q9967

== ENCOUNTER 2018-09-26 00:01 | Emergency (ER) | payer MEDICAID, OTHER, SELFPAY ==
[2018-09-26 00:12] VITALS: BP 148/87; PULSE 68; RESP 18; TEMP 36.7; O2SAT 97; BMI 40.7
[2018-09-26 00:43] LABS: Creatine Kinase 39 U/L (30-135)
[2018-09-26 00:45] LABS: BUN Creatinine Ratio 28.8 (6-22); Blood Urea Nitrogen 23 mg/dL (7-17); Calcium 8.3 mg/dL (8.4-10.2); Carbon Dioxide 23 mmol/L (22-32); Chloride 107 mmol/L (98-107); Estimated Glomerular Filt Rate > 60.0 mL/min (>60); Glucose 113 mg/dL (70-100); HEMOLYSIS < 15 (0-50); Potassium 4.4 mmol/L (3.4-5.1); Sodium 138 mmol/L (137-145)
[2018-09-26 00:52] LABS: Add Manual Diff / Slide Review NO; Basophils Absolute Auto 100 /uL (0-100); Basophils Percent Auto 0.5 % (0-2); Eosinophils Absolute Auto 0 /uL (0-450); Hematocrit 38.6 % (36-46); Hemoglobin 12.2 g/dL (12.0-16.0); Lymphocytes Absolute Auto 3200 /uL (1100-4500); Lymphocytes Percent Auto 27.7 % (25-40); Mean Corpuscular HGB Conc 31.6 % (30-36); Mean Corpuscular Hemoglobin 28.9 PG (26-34); Mean Corpuscular Volume 91.2 fL (80-100); Monocytes Absolute Auto 600 /uL (0-900); Monocytes Percent Auto 5.5 % (3-14); Neutrophils Absolute Auto 7700 /uL (1500-7000); Neutrophils Percent Auto 66.3 % (50-75); Platelet Count 356 X10^3/uL (150-400); Red Blood Cell Count 4.23 X10^6/uL (4.0-5.2); Red Cell Distribution Width 18.5 % (11.6-14.8); White Blood Cell Count 11.6 X10^3/uL (4.5-11.0)
[2018-09-26 00:56] LABS: Troponin I < 0.012 ng/mL (0.01-0.034)
--- NOTE | 2018-09-26 01:39 | ED.HA ---
HPI - Headache General Chief Complaint: Headache Stated Complaint: headaches/lightheaded/cp/taking Prednesone Time Seen by Provider: 09/26/18 00:42 Source: patient Mode of arrival: ambulatory Limitations: no limitations History of Present Illness HPI Narrative: Patient is a 48-year-old female who presents with a variety of complaints. she has been having a headache for the last 2 days. She apparently has had blackout episodes and is scheduled for some sort of imaging tomorrow. That has been ongoing for a while. Her headache is not any worse today than it usually is. She has no known this tingling weakness vision changes persistent vomiting. However today she also is experiencing some chest discomfort and heaviness. It started about 4:00 p.m. while she was cooking dinner. Pain is nonradiating states in the center of her chest it has been constant. She has no known coronary artery disease. She was sleeping when I 1st enter the room but still complaining of some discomfort. MD Complaint: headache Severity: mild Related Data Previous Rx's Medication Instructions Recorded amoxicillin-pot clavulanate 1 tab PO BID #20 tab 06/04/18 [Augmentin] hydrocodone-acetaminophen 1 tab PO Q4-6H PRN #10 tab 06/04/18 ondansetron 4 mg PO TID-QID PRN #10 tab 06/04/18 Allergies Allergy/AdvReac Type Severity Reaction Status Date / Time dicyclomine [DICYCLOMINE] Allergy Unknown Unverified 06/04/18 16:24 ibuprofen [IBUPROFEN] Allergy Unknown Unverified 06/04/18 16:24 meloxicam [MELOXICAM] Allergy Unknown Unverified 06/04/18 16:24 Review of Systems Review of Systems ROS Unobtainable: All systems reviewed & are unremarkable except as noted in HPI and below Constitutional Denies chills, Denies fever(s), Reports headache(s), Denies lethargy and Denies weakness Eyes Denies change in vision, Denies eye discharge, Denies irritation and Denies loss of vision ENT Ears, Nose, Mouth, and Throat: Denies change in voice, Denies dizziness, Reports headache(s), Denies neck pain and Denies sore throat Cardiovascular Reports chest pain, Denies syncope, Denies dyspnea and Denies dyspnea on exertion Respiratory Denies cough, Denies dyspnea, Denies dyspnea on exertion and Denies wheezing Gastrointestinal Gastrointestinal: Denies abdominal pain, Denies change in bowel habits, Denies diarrhea, Denies nausea and Denies vomiting Genitourinary Denies hematuria, Denies flank pain, Denies urinary incontinence and Denies urinary urgency Musculoskeletal Denies abnormal gait and Denies neck pain Integumentary/Breasts Denies pruritus, Denies erythema, Denies rash and Denies wounds Neurologic Denies abnormal gait, Denies dizziness, Denies syncope, Reports headache(s), Denies loss of vision, Denies convulsions and Denies weakness Allergic/Immunologic Denies wheezing [facility] Medical History Arthritis (Acute) Social History Smoking Status: Former smoker Social History Smoking Status: Former smoker Exam Initial Vital Signs Initial Vital Signs: Vital Signs Temperature 98.1 F 09/26/18 00:12 Pulse Rate 68 09/26/18 00:12 Respiratory Rate 18 09/26/18 00:12 Blood Pressure 148/87 H 09/26/18 00:12 Pulse Oximetry 97 09/26/18 00:12 GENERAL: Sleeping easily arousable and in no acute distress. HEENT: Head atraumatic,EOMI, pupils reactive, face symmetric, neck is supple CARDIOVASCULAR: Regular rate and rhythm without murmurs, rubs or gallops. RESPIRATORY: Breath sounds equal bilaterally, no wheezes rales or rhonchi. ABDOMEN: Soft, nontender. Normoactive bowel sounds all 4 quadrants. No guarding or rebound. : No CVA tenderness EXTREMITIES: Normal range of motion, no clubbing or edema. Neurovascularly intact NEUROLOGICAL: Alert and oriented x4.Normal gait and speech. Cranial nerves II through XII grossly intact. Good [id number], good [id number], strength equal bilaterally, no dysarthria or aphasia, sensation in tact to soft touch bilaterally, no visual changes, no facial droop SKIN: Warm, dry, no laceration, no petechiae, no rashes or lesions. Scores HEART Score Heart Score history: Slightly Suspicious Heart Score EKG: Normal Heart Score Age: 45-64 years old Heart Score risk factors: No known risk factors Heart Score troponin: < or = to normal limit Heart Score Total: 1 Course Orders Ordered: ED Orders 09/26/18 00:20 Basic Metabolic Panel Stat Complete Blood Count AUTO DIFF Stat Troponin & CK Cardiac Panel Stat 09/26/18 00:34 EKG-12 Lead Stat 09/26/18 01:58 CT head/brain wo con Stat XR chest 1V Stat EKG-12 Lead Stat 09/26/18 02:05 Troponin I Stat Discontinued Medications Aspirin (Aspirin Chew) 324 mg PO NOW ONE Stop: 09/26/18 02:07 Last Admin: 09/26/18 02:09 Dose: 324 mg Vital Signs - 8 hr 09/26/18 00:12 09/26/18 02:48 09/26/18 03:30 Temperature 98.1 F Pulse Rate 68 62 54 L Respiratory Rate 18 14 15 Blood Pressure 148/87 H Blood Pressure [Left Arm] 133/59 L 122/49 L Pulse Oximetry 97 96 96 09/26/18 04:18 Temperature Pulse Rate 61 Respiratory Rate 18 Blood Pressure 131/66 Blood Pressure [Left Arm] Pulse Oximetry 96 MDM - Headache Lab Data Attestation: I reviewed the patient's lab results. Result diagrams: 09/26/18 00:20 09/26/18 00:20 Lab Results 09/26/18 09/26/18 09/26/18 Range/Units 00:20 00:20 00:20 WBC 11.6 H (4.5-11.0) X10^3/uL RBC 4.23 (4.0-5.2) X10^6/uL Hgb 12.2 (12.0-16.0) g/dL Hct 38.6 (36-46) % MCV 91.2 (80-100) fL MCH 28.9 (26-34) PG MCHC 31.6 (30-36) % RDW 18.5 H (11.6-14.8) % Plt Count 356 (150-400) X10^3/uL Neut % (Auto) 66.3 (50-75) % Lymph % (Auto) 27.7 (25-40) % [place] % (Auto) 5.5 (3-14) % Eos % (Auto) 0.0 L (2-4) % Baso % (Auto) 0.5 (0-2) % Neut # (Auto) 7700 H (2353-7198) /uL Lymph # (Auto) 3200 (5370-4369) /uL [place] # (Auto) 600 (0-900) /uL Eos # (Auto) 0 (0-450) /uL Baso # (Auto) 100 (0-100) /uL Sodium 138 (137-145) mmol/L Potassium 4.4 (3.4-5.1) mmol/L Chloride 107 (98-107) mmol/L Carbon Dioxide 23 (22-32) mmol/L BUN 23 H (7-17) mg/dL Creatinine 0.80 (0.52-1.04) mg/dL Estimated GFR > 60.0 (>60) mL/min BUN/Creatinine Ratio 28.8 H (6-22) Glucose 113 H (70-100) mg/dL Calcium 8.3 L (8.4-10.2) mg/dL Total Creatine Kinase 39 (30-135) U/L CK-MB (CK-2) TNP CK-MB (CK-2) Rel Index TNP Troponin I < 0.012 (0.01-0.034) ng/mL 09/26/18 Range/Units 02:05 WBC (4.5-11.0) X10^3/uL RBC (4.0-5.2) X10^6/uL Hgb (12.0-16.0) g/dL Hct (36-46) % MCV (80-100) fL MCH (26-34) PG MCHC (30-36) % RDW (11.6-14.8) % Plt Count (150-400) X10^3/uL Neut % (Auto) (50-75) % Lymph % (Auto) (25-40) % [place] % (Auto) (3-14) % Eos % (Auto) (2-4) % Baso % (Auto) (0-2) % Neut # (Auto) (2121-6277) /uL Lymph # (Auto) (2007-3302) /uL [place] # (Auto) (0-900) /uL Eos # (Auto) (0-450) /uL Baso # (Auto) (0-100) /uL Sodium (137-145) mmol/L Potassium (3.4-5.1) mmol/L Chloride (98-107) mmol/L Carbon Dioxide (22-32) mmol/L BUN (7-17) mg/dL Creatinine (0.52-1.04) mg/dL Estimated GFR (>60) mL/min BUN/Creatinine Ratio (6-22) Glucose (70-100) mg/dL Calcium (8.4-10.2) mg/dL Total Creatine Kinase (30-135) U/L CK-MB (CK-2) CK-MB (CK-2) Rel Index Troponin I < 0.012 (0.01-0.034) ng/mL Imaging Data Chest x-ray: Attestation: I personally reviewed and interpreted this imaging study as follows: My impression: No acute cardiopulmonary process 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 Sinus rhythm pre 59 year normal 1 similar previous MDM Narrative Medical decision making narrative: Patient has a variety of complaints but is mostly sleeping in the emergency department. Head CT negative focal exam is negative. She has 2-troponins. No known coronary artery disease or risk factor she has a low risk heart score Discharge Plan Departure Patient Disposition: Home Clinical Impression: Atypical chest pain Headache Qualifiers: Headache type: unspecified Headache chronicity pattern: chronic headache Intractability: not intractable Qualified Code(s): R51 - Headache Discharge Date/Time: 09/26/18 04:18 Interventions: ED Discharge Assessment Last Done: 09/26/18 04:18 Instructions: DI for Atypical Chest Pain, DI for Headache Activity Restrictions/Additional Instructions: *You have been diagnosed with atypical chest pain and headache *What to do: You may require further cardiac testing such as a stress test please see your PCP in regards to more testing. He also had a CT scan of her head this evening which was negative. Please call in the morning to see what testes were supposed to have. *Continue to take medications as directed *Follow up with your primary care provider in 2-3 days *Return to ER if you should have increasing chest pain shortness of breath worsening headache or any new, worsening or concerning symptoms Prescriptions: No Action hydrocodone-acetaminophen 5-325 mg tablet 1 tab PO Q4-6H PRN (Reason: pain) Qty: 10 RF: 0 ondansetron 4 mg tablet,disintegrating 4 mg PO TID-QID PRN (Reason: nausea and vomiting) Qty: 10 RF: 0 amoxicillin-pot clavulanate [Augmentin] 875-125 mg tablet 1 tab PO BID Qty: 20 RF: 0 Referrals: Wai Post MD [Physician] -
--- NOTE | 2018-09-26 01:58 | DI.CT.S_ITS ---
PROCEDURE: CT HEAD/BRAIN WO CON INDICATIONS: headache TECHNIQUE: Noncontrast 4.5 mm thick angled axial sections acquired from the foramen magnum to the vertex, with coronal and sagittal reformats. For radiation dose reduction, the following was used: automated exposure control, adjustment of mA and/or kV according to patient size. COMPARISON: None. FINDINGS: Image quality: Excellent. CSF spaces: Basal cisterns are patent. No extra-axial fluid collections. Ventricles are normal in size and shape. Brain: No midline shift. No intracranial masses or hemorrhage. Parmar-white matter interface is normal. Skull and face: Calvarium and visualized facial bones are intact, without suspicious lesions. Sinuses: Visualized sinuses and mastoids are clear. IMPRESSION: No CT evidence of acute intracranial process. Concordant with preliminary results. Dictated by: Fawn Rosenthal M.D. on 09/26/2018 at 8:18 Approved by: Fawn Rosenthal M.D. on 09/26/2018 at 8:20
--- NOTE | 2018-09-26 01:58 | DI.RAD.S_ITS ---
PROCEDURE: XR CHEST 1V INDICATIONS: chest pain TECHNIQUE: One view of the chest was acquired. COMPARISON: [facility], , XR CHEST 2V, 05/10/2018, 9:30. [facility], , CHEST 1 VIEW, 02/26/2012, 0:31. FINDINGS: Surgical changes and devices: None. Lungs and pleura: Lungs are clear. No pleural effusions or pneumothorax. Mediastinum: Mediastinal contours appear normal. Heart size is normal. Bones and chest wall: No suspicious bony lesions. Overlying soft tissues appear unremarkable. IMPRESSION: No acute cardiopulmonary findings. Dictated by: Maria E Segura M.D. on 09/26/2018 at 8:56 Approved by: Maria E Segura M.D. on 09/26/2018 at 9:00
[2018-09-26] MEDS: ASPIRIN 81 MG TAB 324 MG PO (02:09)
[2018-09-26 02:42] LABS: Troponin I < 0.012 ng/mL (0.01-0.034)
[2018-09-26 02:48] VITALS: BP 133/59; PULSE 62; RESP 14; O2SAT 96
[2018-09-26 03:30] VITALS: BP 122/49; PULSE 54; RESP 15; O2SAT 96
--- NOTE | 2018-09-26 03:44 | ED_ITS ---
HPI - Headache General Chief Complaint: Headache Stated Complaint: headaches/lightheaded/cp/taking Prednesone Time Seen by Provider: 09/26/18 00:42 Source: patient Mode of arrival: ambulatory Limitations: no limitations History of Present Illness HPI Narrative: Patient is a 48-year-old female who presents with a variety of complaints. she has been having a headache for the last 2 days. She apparently has had blackout episodes and is scheduled for some sort of imaging tomorrow. That has been ongoing for a while. Her headache is not any worse today than it usually is. She has no known this tingling weakness vision changes persistent vomiting. However today she also is experiencing some chest discomfort and heaviness. It started about 4:00 p.m. while she was cooking dinner. Pain is nonradiating states in the center of her chest it has been constant. She has no known coronary artery disease. She was sleeping when I 1st enter the room but still complaining of some discomfort. MD Complaint: headache Severity: mild Related Data Previous Rx's Medication Instructions Recorded amoxicillin-pot clavulanate 1 tab PO BID #20 tab 06/04/18 [Augmentin] hydrocodone-acetaminophen 1 tab PO Q4-6H PRN #10 tab 06/04/18 ondansetron 4 mg PO TID-QID PRN #10 tab 06/04/18 Allergies Allergy/AdvReac Type Severity Reaction Status Date / Time dicyclomine [DICYCLOMINE] Allergy Unknown Unverified 06/04/18 16:24 ibuprofen [IBUPROFEN] Allergy Unknown Unverified 06/04/18 16:24 meloxicam [MELOXICAM] Allergy Unknown Unverified 06/04/18 16:24 Review of Systems Review of Systems ROS Unobtainable: All systems reviewed & are unremarkable except as noted in HPI and below Constitutional Denies chills, Denies fever(s), Reports headache(s), Denies lethargy and Denies weakness Eyes Denies change in vision, Denies eye discharge, Denies irritation and Denies loss of vision ENT Ears, Nose, Mouth, and Throat: Denies change in voice, Denies dizziness, Reports headache(s), Denies neck pain and Denies sore throat Cardiovascular Reports chest pain, Denies syncope, Denies dyspnea and Denies dyspnea on exertion Respiratory Denies cough, Denies dyspnea, Denies dyspnea on exertion and Denies wheezing Gastrointestinal Gastrointestinal: Denies abdominal pain, Denies change in bowel habits, Denies diarrhea, Denies nausea and Denies vomiting Genitourinary Denies hematuria, Denies flank pain, Denies urinary incontinence and Denies urinary urgency Musculoskeletal Denies abnormal gait and Denies neck pain Integumentary/Breasts Denies pruritus, Denies erythema, Denies rash and Denies wounds Neurologic Denies abnormal gait, Denies dizziness, Denies syncope, Reports headache(s), Denies loss of vision, Denies convulsions and Denies weakness Allergic/Immunologic Denies wheezing [facility] Medical History Arthritis (Acute) Social History Smoking Status: Former smoker Social History Smoking Status: Former smoker Exam Initial Vital Signs Initial Vital Signs: Vital Signs Temperature 98.1 F 09/26/18 00:12 Pulse Rate 68 09/26/18 00:12 Respiratory Rate 18 09/26/18 00:12 Blood Pressure 148/87 H 09/26/18 00:12 Pulse Oximetry 97 09/26/18 00:12 GENERAL: Sleeping easily arousable and in no acute distress. HEENT: Head atraumatic,EOMI, pupils reactive, face symmetric, neck is supple CARDIOVASCULAR: Regular rate and rhythm without murmurs, rubs or gallops. RESPIRATORY: Breath sounds equal bilaterally, no wheezes rales or rhonchi. ABDOMEN: Soft, nontender. Normoactive bowel sounds all 4 quadrants. No guarding or rebound. : No CVA tenderness EXTREMITIES: Normal range of motion, no clubbing or edema. Neurovascularly intact NEUROLOGICAL: Alert and oriented x4.Normal gait and speech. Cranial nerves II through XII grossly intact. Good noqhqr-qk-kpqg, good tycp-ut-yrry, strength equal bilaterally, no dysarthria or aphasia, sensation in tact to soft touch bilaterally, no visual changes, no facial droop SKIN: Warm, dry, no laceration, no petechiae, no rashes or lesions. Scores HEART Score Heart Score history: Slightly Suspicious Heart Score EKG: Normal Heart Score Age: 45-64 years old Heart Score risk factors: No known risk factors Heart Score troponin: < or = to normal limit Heart Score Total: 1 Course Orders Ordered: ED Orders 09/26/18 00:20 Basic Metabolic Panel Stat Complete Blood Count AUTO DIFF Stat Troponin & CK Cardiac Panel Stat 09/26/18 00:34 EKG-12 Lead Stat 09/26/18 01:58 CT head/brain wo con Stat XR chest 1V Stat EKG-12 Lead Stat 09/26/18 02:05 Troponin I Stat Discontinued Medications Aspirin (Aspirin Chew) 324 mg PO NOW ONE Stop: 09/26/18 02:07 Last Admin: 09/26/18 02:09 Dose: 324 mg Vital Signs - 8 hr 09/26/18 00:12 09/26/18 02:48 09/26/18 03:30 Temperature 98.1 F Pulse Rate 68 62 54 L Respiratory Rate 18 14 15 Blood Pressure 148/87 H Blood Pressure [Left Arm] 133/59 L 122/49 L Pulse Oximetry 97 96 96 09/26/18 04:18 Temperature Pulse Rate 61 Respiratory Rate 18 Blood Pressure 131/66 Blood Pressure [Left Arm] Pulse Oximetry 96 MDM - Headache Lab Data Attestation: I reviewed the patient's lab results. Result diagrams: 09/26/18 00:20 09/26/18 00:20 Lab Results 09/26/18 09/26/18 09/26/18 Range/Units 00:20 00:20 00:20 WBC 11.6 H (4.5-11.0) X10^3/uL RBC 4.23 (4.0-5.2) X10^6/uL Hgb 12.2 (12.0-16.0) g/dL Hct 38.6 (36-46) % MCV 91.2 (80-100) fL MCH 28.9 (26-34) PG MCHC 31.6 (30-36) % RDW 18.5 H (11.6-14.8) % Plt Count 356 (150-400) X10^3/uL Neut % (Auto) 66.3 (50-75) % Lymph % (Auto) 27.7 (25-40) % [place] % (Auto) 5.5 (3-14) % Eos % (Auto) 0.0 L (2-4) % Baso % (Auto) 0.5 (0-2) % Neut # (Auto) 7700 H (6771-6923) /uL Lymph # (Auto) 3200 (6004-1121) /uL [place] # (Auto) 600 (0-900) /uL Eos # (Auto) 0 (0-450) /uL Baso # (Auto) 100 (0-100) /uL Sodium 138 (137-145) mmol/L Potassium 4.4 (3.4-5.1) mmol/L Chloride 107 (98-107) mmol/L Carbon Dioxide 23 (22-32) mmol/L BUN 23 H (7-17) mg/dL Creatinine 0.80 (0.52-1.04) mg/dL Estimated GFR > 60.0 (>60) mL/min BUN/Creatinine Ratio 28.8 H (6-22) Glucose 113 H (70-100) mg/dL Calcium 8.3 L (8.4-10.2) mg/dL Total Creatine Kinase 39 (30-135) U/L CK-MB (CK-2) TNP CK-MB (CK-2) Rel Index TNP Troponin I < 0.012 (0.01-0.034) ng/mL 09/26/18 Range/Units 02:05 WBC (4.5-11.0) X10^3/uL RBC (4.0-5.2) X10^6/uL Hgb (12.0-16.0) g/dL Hct (36-46) % MCV (80-100) fL MCH (26-34) PG MCHC (30-36) % RDW (11.6-14.8) % Plt Count (150-400) X10^3/uL Neut % (Auto) (50-75) % Lymph % (Auto) (25-40) % [place] % (Auto) (3-14) % Eos % (Auto) (2-4) % Baso % (Auto) (0-2) % Neut # (Auto) (8146-0965) /uL Lymph # (Auto) (5985-4420) /uL [place] # (Auto) (0-900) /uL Eos # (Auto) (0-450) /uL Baso # (Auto) (0-100) /uL Sodium (137-145) mmol/L Potassium (3.4-5.1) mmol/L Chloride (98-107) mmol/L Carbon Dioxide (22-32) mmol/L BUN (7-17) mg/dL Creatinine (0.52-1.04) mg/dL Estimated GFR (>60) mL/min BUN/Creatinine Ratio (6-22) Glucose (70-100) mg/dL Calcium (8.4-10.2) mg/dL Total Creatine Kinase (30-135) U/L CK-MB (CK-2) CK-MB (CK-2) Rel Index Troponin I < 0.012 (0.01-0.034) ng/mL Imaging Data Chest x-ray: Attestation: I personally reviewed and interpreted this imaging study as follows: My impression: No acute cardiopulmonary process 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 Sinus rhythm pre 59 year normal 1 similar previous MDM Narrative Medical decision making narrative: Patient has a variety of complaints but is mostly sleeping in the emergency department. Head CT negative focal exam is negative. She has 2-troponins. No known coronary artery disease or risk factor she has a low risk heart score Discharge Plan Departure Patient Disposition: Home Clinical Impression: Atypical chest pain Headache Qualifiers: Headache type: unspecified Headache chronicity pattern: chronic headache Intractability: not intractable Qualified Code(s): R51 - Headache Discharge Date/Time: 09/26/18 04:18 Interventions: ED Discharge Assessment Last Done: 09/26/18 04:18 Instructions: DI for Atypical Chest Pain, DI for Headache Activity Restrictions/Additional Instructions: *You have been diagnosed with atypical chest pain and headache *What to do: You may require further cardiac testing such as a stress test please see your PCP in regards to more testing. He also had a CT scan of her head this evening which was negative. Please call in the morning to see what testes were supposed to have. *Continue to take medications as directed *Follow up with your primary care provider in 2-3 days *Return to ER if you should have increasing chest pain shortness of breath worsening headache or any new, worsening or concerning symptoms Prescriptions: No Action hydrocodone-acetaminophen 5-325 mg tablet 1 tab PO Q4-6H PRN (Reason: pain) Qty: 10 RF: 0 ondansetron 4 mg tablet,disintegrating 4 mg PO TID-QID PRN (Reason: nausea and vomiting) Qty: 10 RF: 0 amoxicillin-pot clavulanate [Augmentin] 875-125 mg tablet 1 tab PO BID Qty: 20 RF: 0 Referrals: Wai Post MD [Physician] -
[2018-09-26 04:18] VITALS: BP 131/66; PULSE 61; RESP 18; O2SAT 96
== END 2018-09-26 04:18 | disposition home or self-care (01) ==
PROVIDERS: Emergency Provider Emergency Medicine; PCP Family Medicine
DX: R07.89 Other chest pain (principal); R51 Headache
CPT/HCPCS: 36591; 70450; 71045; 80048; 82550; 84484; 85025; 93005; 93010; 99282; 99285

== ENCOUNTER 2020-05-29 15:32 | Emergency (ER) | payer MEDICAID, OTHER, SELFPAY ==
[2020-05-29 15:40] VITALS: BP 170/72; PULSE 72; RESP 20; TEMP 36.4; O2SAT 97
[2020-05-29 16:11] LABS: COVID19 -Nasal RAPID Negative (Negative)
--- NOTE | 2020-05-29 17:58 | ED.GENADULT ---
HPI - General Adult General Chief complaint: Upper Respiratory Symptoms Stated complaint: job needs covid test/ chest cold? Time Seen by Provider: 05/29/20 17:53 Source: patient Mode of arrival: Ambulatory Limitations: no limitations History of Present Illness HPI narrative: This is a 50-year-old female who comes emergency department with request for COVID test. Patient states she has had no fevers, no chills. No cold cough or congestion. She states a mild cough she has had a little bit of chest discomfort. No nausea no vomiting. No diaphoresis. No other GI or urinary symptoms. No swelling in her extremities. Patient denies any medical issues. 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 She is requesting a test for COVID. Patient denies any regular medications. She has a family history of cardiac issues but none herself. Related Data Previous Rx's Medication Instructions Recorded amoxicillin-pot clavulanate 1 tab PO BID #20 tab 06/04/18 [Augmentin] hydrocodone-acetaminophen 1 tab PO Q4-6H PRN #10 tab 06/04/18 ondansetron 4 mg PO TID-QID PRN #10 tab 06/04/18 Allergies Allergy/AdvReac Type Severity Reaction Status Date / Time dicyclomine [DICYCLOMINE] Allergy Unknown Unverified 06/04/18 16:24 ibuprofen [IBUPROFEN] Allergy Unknown Unverified 06/04/18 16:24 meloxicam [MELOXICAM] Allergy Unknown Unverified 06/04/18 16:24 Review of Systems Review of Systems ROS Unobtainable: All systems reviewed & are unremarkable except as noted in HPI and below Patient History Medical History (Updated 05/29/20 @ 18:03 by Lynn Ross DO) Arthritis Social History Smoking Status: Former smoker Smoking Status: Former smoker alcohol intake frequency: 0-2 drinks per day Substance Use Type: does not use Exam Narrative Exam Narrative: GEN: well nourished, well appearing [default value], alert and oriented x [default value], patient appears to be in [default value] distress. HEENT: Atraumatic, pupils are equal round reactive to light, extraocular movements are intact, nares are clear, TMs are clear with no fluid, there is no conjunctival pallor. Throat is clear without any exudates, erythema, tonsillar enlargement or uvular deviation HEART: Regular rate and rhythm without murmur, clicks, rubs. No carotid bruits, pulses are equal in upper and lower extremities LUNGS:Lungs clear to auscultation, no wheezes, rales, crackles, chest moves symmetrically ABD:bowel sounds normal, soft, non-tender, no guarding, rebound, rigidity, no masses noted, no hepatosplenomegaly :No CVA tenderness, [male/female exam] MSCL: Non-tender, no muscle atrophy, muscles strength 5/5 upper and lower extremities, full range of motion, normal gait NEURO:CN 2-12 intact, sensation normal, reflexes 2/4 upper and lower extremities. finger nose finger test normal, heel sanchez test normal, romberg normal Initial Vital Signs Initial Vital Signs: Vital Signs Temperature 97.6 F 05/29/20 15:40 Pulse Rate 72 05/29/20 15:40 Respiratory Rate 20 05/29/20 15:40 Blood Pressure 170/72 H 05/29/20 15:40 Pulse Oximetry 97 05/29/20 15:40 Course Orders Ordered: ED Orders 05/29/20 15:45 COVID19 Stat Vital Signs Vital signs: Vital Signs - 8 hr 05/29/20 15:40 Temperature 97.6 F Pulse Rate 72 Respiratory Rate 20 Blood Pressure 170/72 H Pulse Oximetry 97 Medical Decision Making Lab Data Labs: Lab Results 05/29/20 Range/Units 15:45 SARS-CoV-2 (PCR) Negative (Negative) MDM Narrative Medical decision making narrative: Patient politely defers any further cardiac workup she has family history but does not have any other risk factors. Besides age. She states that she would prefer to follow up with her primary care tomorrow we did COVID results. Risks versus benefits were discussed. Discharge Plan Departure Patient Disposition: Home Clinical Impression: Lab test negative for COVID-19 virus Instructions: Can COVID-19 be prevented? Activity Restrictions/Additional Instructions: Follow-up with your physician regarding any chest pain if it continues, as we did not do a further workup for chest pain. Your COVID swab today was negative. Return to the ER for fevers, new shortness of breath, chest pain lightheadedness or passing out, coughing blood, black or bloody stools, new swelling in her extremities or other new or concerning symptoms. Prescriptions: No Action hydrocodone-acetaminophen 5-325 mg tablet 1 tab PO Q4-6H PRN (Reason: pain) Qty: 10 RF: 0 ondansetron 4 mg tablet,disintegrating 4 mg PO TID-QID PRN (Reason: nausea and vomiting) Qty: 10 RF: 0 amoxicillin-pot clavulanate [Augmentin] 875-125 mg tablet 1 tab PO BID Qty: 20 RF: 0
== END 2020-05-29 18:10 | disposition home or self-care (01) ==
PROVIDERS: Emergency Provider Emergency Medicine
DX: Z20.822 Contact with and (suspected) exposure to COVID-19 (principal); R05 Cough; R07.89 Other chest pain
CPT/HCPCS: 87635; 99281; 99282; C9803

== ENCOUNTER → 2020-06-30 14:55 | Outpatient (CLI) | payer MEDICAID, OTHER, SELFPAY ==
--- NOTE | 2020-06-30 15:00 | DI.RAD.S_ITS ---
PROCEDURE: XR HIP W PEL IF DONE LT MIN 4V INDICATIONS: HIP PAIN TECHNIQUE: AP pelvis with lateral view(s) of the right and left hip(s). COMPARISON: None. FINDINGS: Bones: No fractures or dislocations. Pelvic ring appears intact. No suspicious bony lesions. Mild bilateral hip osseous hypertrophy compatible with mild osteoarthritis. Soft tissues: The visualized bowel gas pattern is normal. No suspicious soft tissue calcifications. IMPRESSION: Mild bilateral hip osteoarthritis. Dictated by: Shantel Jose MD, PhD on 06/30/2020 at 16:55 Approved by: Shantel Jose MD, PhD on 06/30/2020 at 16:55
--- NOTE | 2020-06-30 15:01 | DI.RAD.S_ITS ---
PROCEDURE: XR KNEE STANDING BI INDICATIONS: knee pain TECHNIQUE: 1 views of the right knee, and 1 views of the left knee. COMPARISON: None. FINDINGS: On the right, there is medial and lateral compartment osteophytosis and moderate medial compartment joint space loss. On the left there is small marginal medial osteophyte with mild medial compartment joint space loss. IMPRESSION: Bilateral degenerative arthritis. Dictated by: Kain Figueroa M.D. on 06/30/2020 at 17:33 Approved by: Kain Figueroa M.D. on 06/30/2020 at 17:34
== END ==
PROVIDERS: Referring Provider Family Medicine; Visit Provider Family Medicine
DX: M25.561 Pain in right knee (principal); M25.559 Pain in unspecified hip; M16.0 Bilateral primary osteoarthritis of hip
CPT/HCPCS: 73522; 73565

== ENCOUNTER 2020-07-17 17:01 | Emergency (ER) | payer MEDICAID, OTHER, SELFPAY ==
[2020-07-17 17:29] VITALS: BP 170/73; PULSE 82; RESP 20; TEMP 36.4; O2SAT 99; BMI 40.7
[2020-07-17 18:02] LABS: COVID19 -Nasal RAPID Negative (Negative)
--- NOTE | 2020-07-17 18:23 | PC.NURSE ---
Patient was sent by her work for covid test. She states sore throat and pain in her right throat and neck. She states that she had chills earlier before work. Trouble swallowing until she took tyelenol. Now she denies trouble swallowing. Both of her tympanic membranes are keller and free of drainage but she does complain that her right ear is painful.
--- NOTE | 2020-07-17 18:48 | ED.RECABL ---
HPI - Recheck/Abnormal Lab/Rx General Chief Complaint: Recheck/Abnormal Lab/Rx Stated Complaint: sore throat,face hot,job sent for covid test Time Seen by Provider: 07/17/20 18:15 Source: patient Mode of arrival: Ambulatory Limitations: no limitations History of Present Illness HPI narrative: Patient is a 50-year-old female who presents with right-sided sore throat ear pain which started this morning. She denies any fever chills cough or shortness of breath. She went to work and was sent home told that she needs a COVID test before returning. His she is having full slightly right-sided ear pain and throat pain for a few hours. Currently afebrile. COVID and strep are both negative Related Data Previous Rx's Medication Instructions Recorded amoxicillin-pot clavulanate 1 tab PO BID #20 tab 06/04/18 [Augmentin] hydrocodone-acetaminophen 1 tab PO Q4-6H PRN #10 tab 06/04/18 ondansetron 4 mg PO TID-QID PRN #10 tab 06/04/18 Allergies Allergy/AdvReac Type Severity Reaction Status Date / Time dicyclomine [DICYCLOMINE] Allergy Unknown Verified 07/17/20 17:37 ibuprofen [IBUPROFEN] Allergy Unknown Verified 07/17/20 17:37 meloxicam [MELOXICAM] Allergy Unknown Verified 07/17/20 17:37 Review of Systems Review of Systems Narrative: GENERAL: Denies chills, fatigue, malaise, fever, sweats, travel HEENT: See HPI RESPIRATORY: Denies dyspnea, cough, wheezing, hemoptysis, sputum. CARDIOVASCULAR: Denies chest pain, palpitations, orthopnea, edema GASTROINTESTINAL: Denies nausea, vomiting, abdominal pain, diarrhea, constipation, melena. : Denies dysuria, frequency, incontinence, hematuria, urinary retention, flank pain. MUSCULOSKELETAL: Denies weakness, joint pain, or bony pain SKIN: No rash, no erythema, no pruritus NEUROLOGIC: Denies weakness, dizziness, headache, numbness, change in speech, confusion PSYCHIATRIC: No concerning psychosocial issues. 12 point review of systems is negative except for those stated above and HPI Patient History Medical History (Updated 07/17/20 @ 18:52 by Elizabeth Linder DO) Arthritis Social History (Reviewed 07/17/20 @ 18:50 by [employer] Smoking Status: Former smoker Smoking Status: Former smoker alcohol intake frequency: 0-2 drinks per day Substance Use Type: does not use Exam Initial Vital Signs Initial Vital Signs: Vital Signs Temperature 97.5 F L 07/17/20 17:29 Pulse Rate 82 07/17/20 17:29 Respiratory Rate 20 07/17/20 17:29 Blood Pressure 170/73 H 07/17/20 17:29 Pulse Oximetry 99 07/17/20 17:29 GENERAL: Alert overweight well-appearing 50-year-old female and in no acute distress. HEENT: Head atraumatic,EOMI, pupils reactive, face symmetric, moist mucous membranes EARS: Tympanic membranes visualized, no erythema or bulging, no hemotympanum PHARYNX: No erythema, no tonsillar exudate, no cervical lymphadenopathy CARDIOVASCULAR: Regular rate and rhythm without murmurs, rubs or gallops. RESPIRATORY: Breath sounds equal bilaterally, no wheezes rales or rhonchi. EXTREMITIES: Normal range of motion, no clubbing or edema. Neurovascularly intact NEUROLOGICAL: Alert and oriented x4. SKIN: Warm, dry, no laceration, no petechiae, no rashes or lesions. Course Orders Ordered: ED Orders 07/17/20 17:30 COVID19 Stat Vital Signs Vital signs: Vital Signs - 8 hr 07/17/20 17:29 Temperature 97.5 F L Pulse Rate 82 Respiratory Rate 20 Blood Pressure 170/73 H Pulse Oximetry 99 [facility] - Recheck/Abnormal Lab/Rx Lab Data Attestation: I reviewed the patient's lab results. Labs: Lab Results 07/17/20 Range/Units 17:30 SARS-CoV-2 (PCR) Negative (Negative) Point of Care Testing Rapid Strep A Negative [facility] Narrative Medical decision making narrative: At this time patient overall appears well in is probably viral syndrome versus to orally for strep or COVID B positive. However based on symptoms do not suspect COVID probably upper respiratory viral infection versus strep. At this time no indication for antibiotics throat is the not erythematous, and no otitis is present Discharge Plan Departure Patient Disposition: Home Clinical Impression: Acute upper respiratory infection Instructions: DI for Viral Upper Respiratory Infection -- Adult Activity Restrictions/Additional Instructions: *You have been diagnosed with upper respiratory viral infection *What to do: At this time no antibiotics are indicated. It may be too early for ear infection or strep to be positive. I do not suspect that you have COVID. *Continue to take medications as directed Tylenol 650 mg every 4-6 hours if needed for [id number] pain *Follow up with your primary care provider in 2-3 days *Return to ER if you should have increasing throat or ear pain, cough, shortness of breath difficulty swallowing or any new, worsening or concerning symptoms Prescriptions: No Action hydrocodone-acetaminophen 5-325 mg tablet 1 tab PO Q4-6H PRN (Reason: pain) Qty: 10 RF: 0 ondansetron 4 mg tablet,disintegrating 4 mg PO TID-QID PRN (Reason: nausea and vomiting) Qty: 10 RF: 0 amoxicillin-pot clavulanate [Augmentin] 875-125 mg tablet 1 tab PO BID Qty: 20 RF: 0 Stand Alone Forms: Work Release Note
== END 2020-07-17 19:01 | disposition home or self-care (01) ==
PROVIDERS: Emergency Medicine; Emergency Provider Emergency Medicine
DX: J06.9 Acute upper respiratory infection, unspecified (principal); J02.9 Acute pharyngitis, unspecified; Z20.822 Contact with and (suspected) exposure to COVID-19
CPT/HCPCS: 87635; 87880; 99281; 99282; C9803

== ENCOUNTER 2020-09-14 23:06 | Observation (INO) | payer MEDICAID, OTHER, SELFPAY ==
[2020-09-14 23:13] VITALS: PULSE 84; O2SAT 99
[2020-09-14 23:14] VITALS: BP 183/81; PULSE 82; O2SAT 98
[2020-09-14 23:15] VITALS: BP 183/81; PULSE 85; RESP 21; TEMP 36.8; O2SAT 100; BMI 39.0
--- NOTE | 2020-09-14 23:16 | DI.RAD.S_ITS ---
PROCEDURE: XR CHEST 1V INDICATIONS: chest pain TECHNIQUE: One view of the chest was acquired. COMPARISON: [facility], CR, XR CHEST 1V, 09/26/2018, 2:05. FINDINGS: Surgical changes and devices: None. Lungs and pleura: Lungs are clear. No pleural effusions or pneumothorax. Mediastinum: Mediastinal contours appear normal. Heart size is normal. Bones and chest wall: No suspicious bony lesions. Overlying soft tissues appear unremarkable. IMPRESSION: No acute cardiopulmonary disease process. Dictated by: Shantel Jose MD, PhD on 09/15/2020 at 8:02 Approved by: Shantel oJse MD, PhD on 09/15/2020 at 8:03
[2020-09-14 23:30] VITALS: PULSE 72; RESP 23; O2SAT 98
[2020-09-15] VITALS (21 sets, daily range): BP systolic 118–168; BP diastolic 51–82; PULSE 70–88; RESP 16–26; TEMP 36.1–37; O2SAT 96–100; BMI 49.6
[2020-09-15 00:06] LABS: Add Manual Diff / Slide Review NO; Basophils Absolute Auto 0 /uL (0-100); Basophils Percent Auto 0.4 % (0-2); Eosinophils Absolute Auto 200 /uL (0-450); Eosinophils Percent Auto 2.1 % (2-4); Lymphocytes Absolute Auto 4400 /uL (1100-4500); Lymphocytes Percent Auto 52.9 % (25-40); Mean Corpuscular HGB Conc 33.2 % (30-36); Mean Corpuscular Hemoglobin 31.4 PG (26-34); Mean Corpuscular Volume 94.6 fL (80-100); Monocytes Absolute Auto 600 /uL (0-900); Monocytes Percent Auto 6.9 % (3-14); Neutrophils Absolute Auto 3100 /uL (1500-7000); Neutrophils Percent Auto 37.7 % (50-75); Platelet Count 273 X10^3/uL (150-400); Red Blood Cell Count 4.13 X10^6/uL (4.0-5.2); Red Cell Distribution Width 13.9 % (11.6-14.8); White Blood Cell Count 8.4 X10^3/uL (4.5-11.0)
[2020-09-15 00:10] LABS: Alanine Aminotransferase 19 IU/L (<35); Albumin Globulin Ratio 1.1 (1.0-2.8); Alkaline Phosphatase 67 U/L (38-126); Aspartate Aminotransferase 27 IU/L (14-36); BUN Creatinine Ratio 16.5 (6-22); Bilirubin Total 0.1 mg/dL (0.2-1.3); Blood Urea Nitrogen 13 mg/dL (7-17); Calcium 8.8 mg/dL (8.4-10.2); Carbon Dioxide 26 mmol/L (22-32); Chloride 106 mmol/L (98-107); Creatine Kinase 57 U/L (30-135); Estimated Glomerular Filt Rate > 60.0 mL/min (>60); Globulin 3.5 g/dL (1.7-4.1); Glucose 128 mg/dL (70-100); HEMOLYSIS 18 (0-50); Lipase 242 U/L (23-300); Potassium 3.7 mmol/L (3.4-5.1); Sodium 140 mmol/L (137-145); Total Protein 7.5 g/dL (6.3-8.2)
[2020-09-15 00:16] LABS: INR 0.9 (0.9-1.3); Prothrombin Time 10.2 SECONDS (10.1-12.7)
[2020-09-15 00:18] LABS: PTT Partial Thromboplastin Tim 29 SECONDS (26.4-36.2)
[2020-09-15 00:21] LABS: Troponin I < 0.012 ng/mL (0.01-0.034)
--- NOTE | 2020-09-15 00:29 | ED.CHESTPAIN ---
HPI - Chest Pain General Chief Complaint: Chest Pain Stated Complaint: Chest pain, SOB, headache Time Seen by Provider: 09/15/20 00:22 Source: patient Mode of arrival: Ambulatory Limitations: no limitations History of Present Illness HPI narrative: Patient is 50-year-old female who denies any medical history presenting with chest pain. She says that a couple weeks ago she was reaching up to get cake at work when she felt some right-sided pain. She says that has been off and on worse with movement. However at this evening she is having worsening chest pain in the center of her chest all across her chest which is quite bad. It seems to come and go unprovoked she has had a couple of episodes in the ED. she is having some very mild shortness of breath. She is quite afraid and tearful. She also states she has had a headache ongoing for the last 3 days she is quite sensitive to light she does have a history of headaches but they usually do not last this long. She now is not complaining of a headache. She denies any nausea or vomiting. She denies any radiation of chest pain. MD complaint: chest pain Quality: tightness and sharp Pain radiation: none Relieving factors: nothing Exacerbating factors: nothing Related Data Previous Rx's Medication Instructions Recorded amoxicillin-pot clavulanate 1 tab PO BID #20 tab 06/04/18 [Augmentin] hydrocodone-acetaminophen 1 tab PO Q4-6H PRN #10 tab 06/04/18 ondansetron 4 mg PO TID-QID PRN #10 tab 06/04/18 Allergies Allergy/AdvReac Type Severity Reaction Status Date / Time dicyclomine [DICYCLOMINE] Allergy Unknown Verified 07/17/20 17:37 ibuprofen [IBUPROFEN] Allergy Unknown Verified 07/17/20 17:37 meloxicam [MELOXICAM] Allergy Unknown Verified 07/17/20 17:37 Review of Systems Review of Systems Narrative: GENERAL: Denies chills, fatigue, malaise, fever, sweats, travel HEENT: Denies sinus pain, ear pain, sore throat, difficulty swallowing, neck pain RESPIRATORY: Denies dyspnea, cough, wheezing, hemoptysis, sputum. CARDIOVASCULAR: See HPI GASTROINTESTINAL: Denies nausea, vomiting, abdominal pain, diarrhea, constipation, melena. : Denies dysuria, frequency, incontinence, hematuria, urinary retention, flank pain. MUSCULOSKELETAL: Denies weakness, joint pain, or bony pain SKIN: No rash, no erythema, no pruritus NEUROLOGIC: Denies weakness, dizziness, headache, numbness, change in speech, confusion PSYCHIATRIC: No concerning psychosocial issues. 12 point review of systems is negative except for those stated above and HPI Patient History Medical History (Updated 09/15/20 @ 02:32 by Elizabeth Linder DO) Arthritis Patient denies medical problems Social History household members: family Smoking Status: Current every day smoker alcohol intake: former Smoking Status: Former smoker alcohol intake frequency: 0-2 drinks per day Substance Use Type: does not use Exam Initial Vital Signs Initial Vital Signs: Vital Signs Pulse Rate 84 09/14/20 23:13 Pulse Oximetry 99 09/14/20 23:13 GENERAL: Tearful 50-year-old female BMI 39 HEENT: Head atraumatic,EOMI, pupils reactive, face symmetric, moist mucous membranes CARDIOVASCULAR: Regular rate and rhythm without murmurs, rubs or gallops. Pain is not reproducible with palpation or movement of left or right arm RESPIRATORY: Breath sounds equal bilaterally, no wheezes rales or rhonchi. ABDOMEN: Soft, nontender. Normoactive bowel sounds all 4 quadrants. No guarding or rebound. EXTREMITIES: Normal range of motion, no clubbing or edema. Neurovascularly intact NEUROLOGICAL: Alert and oriented x4.Normal gait and speech. SKIN: Warm, dry, no laceration, no petechiae, no rashes or lesions. Course Orders Ordered: ED Orders 09/14/20 23:16 XR chest 1V Stat EKG-12 Lead Stat 09/14/20 23:25 Complete Blood Count AUTO DIFF Stat Comprehensive Metabolic Panel Stat Lipase Stat Partial Thromboplastin Time Stat Prothrombin Time INR Stat Troponin & CK Cardiac Panel Stat 09/15/20 EKG-12 Lead Stat 09/15/20 01:38 Troponin I Stat 09/15/20 02:12 COVID19 - ADMIT ([employer] swab/PCR) Stat Discontinued Medications Aspirin (Aspirin 81 Mg Chew Tab) 324 mg PO NOW ONE Stop: 09/15/20 00:39 Last Admin: 09/15/20 00:44 Dose: 324 mg Documented by: FRANCO Nitroglycerin (Nitroglycerin 0.4 Mg Sl Tab) 0.4 mg SL [id number] PRN PRN Reason: Chest Pain Last Admin: 09/15/20 01:14 Dose: 0.4 mg Documented by: Admin: 09/15/20 00:54 Dose: 0.4 mg Documented by: Admin: 09/15/20 00:44 Dose: 0.4 mg Documented by: FRANCO Vital Signs Vital signs: Vital Signs - 8 hr 09/14/20 23:13 09/14/20 23:14 09/14/20 23:15 Temperature 98.3 F Pulse Rate 84 82 85 Respiratory Rate 21 Blood Pressure 183/81 H 183/81 H Pulse Oximetry 99 98 100 09/14/20 23:30 09/15/20 00:00 09/15/20 00:30 Temperature Pulse Rate 72 74 72 Respiratory Rate 23 24 23 Blood Pressure Pulse Oximetry 98 99 99 09/15/20 00:49 09/15/20 00:55 09/15/20 00:56 Temperature Pulse Rate 77 75 74 Respiratory Rate 26 H 21 23 Blood Pressure 137/65 134/61 Pulse Oximetry 97 97 96 09/15/20 01:00 09/15/20 01:05 09/15/20 01:10 Temperature Pulse Rate 73 72 73 Respiratory Rate 23 22 19 Blood Pressure 132/58 L 130/61 131/59 L Pulse Oximetry 96 97 96 09/15/20 01:15 09/15/20 01:20 09/15/20 01:25 Temperature Pulse Rate 71 72 71 Respiratory Rate 22 21 20 Blood Pressure 133/62 168/78 H 162/74 H Pulse Oximetry 96 97 98 09/15/20 01:30 09/15/20 01:35 09/15/20 01:47 Temperature Pulse Rate 70 71 72 Respiratory Rate 22 21 23 Blood Pressure 148/62 H 150/66 H 152/73 H Pulse Oximetry 98 98 100 09/15/20 02:00 Temperature Pulse Rate 72 Respiratory Rate 20 Blood Pressure 144/71 H Pulse Oximetry 98 MDM - Chest Pain Lab Data Attestation: I reviewed the patient's lab results. Result diagrams: 09/14/20 23:25 09/14/20 23:25 Labs: Lab Results 09/14/20 09/14/20 09/14/20 Range/Units 23:25 23:25 23:25 WBC 8.4 (4.5-11.0) X10^3/uL RBC 4.13 (4.0-5.2) X10^6/uL Hgb 13.0 (12.0-16.0) g/dL Hct 39.0 (36-46) % MCV 94.6 (80-100) fL MCH 31.4 (26-34) PG MCHC 33.2 (30-36) % RDW 13.9 (11.6-14.8) % Plt Count 273 (150-400) X10^3/uL Neut % (Auto) 37.7 L (50-75) % Lymph % (Auto) 52.9 H (25-40) % Dawson % (Auto) 6.9 (3-14) % Eos % (Auto) 2.1 (2-4) % Baso % (Auto) 0.4 (0-2) % Neut # (Auto) 3100 (3961-6972) /uL Lymph # (Auto) 4400 (2966-6131) /uL Dawson # (Auto) 600 (0-900) /uL Eos # (Auto) 200 (0-450) /uL Baso # (Auto) 0 (0-100) /uL PT 10.2 (10.1-12.7) SECONDS INR 0.9 (0.9-1.3) APTT 29 (26.4-36.2) SECONDS Sodium 140 (137-145) mmol/L Potassium 3.7 (3.4-5.1) mmol/L Chloride 106 (98-107) mmol/L Carbon Dioxide 26 (22-32) mmol/L BUN 13 (7-17) mg/dL Creatinine 0.79 (0.52-1.04) mg/dL Estimated GFR > 60.0 (>60) mL/min BUN/Creatinine Ratio 16.5 (6-22) Glucose 128 H (70-100) mg/dL Calcium 8.8 (8.4-10.2) mg/dL Total Bilirubin 0.1 L (0.2-1.3) mg/dL AST 27 (14-36) IU/L ALT 19 (<35) IU/L Alkaline Phosphatase 67 (38-126) U/L Total Creatine Kinase 57 (30-135) U/L CK-MB (CK-2) TNP CK-MB (CK-2) Rel Index TNP Troponin I < 0.012 (0.01-0.034) ng/mL Total Protein 7.5 (6.3-8.2) g/dL Albumin 4.0 (3.5-5.0) g/dL Globulin 3.5 (1.7-4.1) g/dL Albumin/Globulin Ratio 1.1 (1.0-2.8) Lipase 242 (23-300) U/L Influenza Type A (PCR) Influenza Type B (PCR) RSV (PCR) 09/15/20 09/15/20 Range/Units 01:38 02:12 WBC (4.5-11.0) X10^3/uL RBC (4.0-5.2) X10^6/uL Hgb (12.0-16.0) g/dL Hct (36-46) % MCV (80-100) fL MCH (26-34) PG MCHC (30-36) % RDW (11.6-14.8) % Plt Count (150-400) X10^3/uL Neut % (Auto) (50-75) % Lymph % (Auto) (25-40) % Dawson % (Auto) (3-14) % Eos % (Auto) (2-4) % Baso % (Auto) (0-2) % Neut # (Auto) (6628-8349) /uL Lymph # (Auto) (3484-0405) /uL Dawson # (Auto) (0-900) /uL Eos # (Auto) (0-450) /uL Baso # (Auto) (0-100) /uL PT (10.1-12.7) SECONDS INR (0.9-1.3) APTT (26.4-36.2) SECONDS Sodium (137-145) mmol/L Potassium (3.4-5.1) mmol/L Chloride (98-107) mmol/L Carbon Dioxide (22-32) mmol/L BUN (7-17) mg/dL Creatinine (0.52-1.04) mg/dL Estimated GFR (>60) mL/min BUN/Creatinine Ratio (6-22) Glucose (70-100) mg/dL Calcium (8.4-10.2) mg/dL Total Bilirubin (0.2-1.3) mg/dL AST (14-36) IU/L ALT (<35) IU/L Alkaline Phosphatase (38-126) U/L Total Creatine Kinase (30-135) U/L CK-MB (CK-2) CK-MB (CK-2) Rel Index Troponin I < 0.012 (0.01-0.034) ng/mL Total Protein (6.3-8.2) g/dL Albumin (3.5-5.0) g/dL Globulin (1.7-4.1) g/dL Albumin/Globulin Ratio (1.0-2.8) Lipase (23-300) U/L Influenza Type A (PCR) Cancelled Influenza Type B (PCR) Cancelled RSV (PCR) Cancelled Imaging Data Chest x-ray: Radiologist's Impression: Preliminary report: Heart size at the upper limits of normal without failure. ECG Data Attestation: I personally reviewed and interpreted this ECG as follows: Prior ECG tracings: available for review Interpretation: EKG 1. Sinus rhythm rate 78 p.r. interval 138 QRS 92 T-wave inversion noted in lead 3 new from prior EKGs also partial incomplete right bundle-branch block noted also new from prior EKGs PVC noted no ST changes EKG 2. Sinus rhythm rate 77 p.r. interval 134 QRS 88 QTC 484 T-wave inversions noted in the to with partial right bundle branch block noted which is new from previous EKG no ST changes. MDM Narrative Medical decision making narrative: The patient is having pain all across her chest which is relieved with 2 nitroglycerin. Pain started to come back in she was given a 3rd nitroglycerin. She has 2-troponins does have new right bundle-branch block noted and T-wave inversion noted in V2 likely from right bundle-branch block. At this time recommend of your patient free further cardiac testing. Gigi rivera [facility], updated patient's symptoms test results an Apley accept observation Discharge Plan Departure Patient Disposition: Admitted as Observation Clinical Impression: Chest pain Admit Date/Time: 09/15/20 02:32 Admit Provider: Chadwick Rivera
[2020-09-15] MEDS: ASPIRIN 81 MG CHEW TAB 324 MG PO (00:44)
[2020-09-15] MEDS: NITROGLYCERIN 0.4 MG SL TAB SL ×3 (00:44→01:14)
[2020-09-15 02:07] LABS: Troponin I < 0.012 ng/mL (0.01-0.034)
--- NOTE | 2020-09-15 03:08 | PM.HP.1 ---
History of Present Illness History of Present Illness Date Patient Seen: 09/15/20 Time Patient Seen: 03:26 Chief complaint: Chest pain, SOB, headache Narrative: Ms. Leslie Smith is a 50-year-old [place] female who has a past medical history significant for headaches, diverticulosis, osteoarthritis in constipation who presents to the ER with complaints of chest pain. The patient states she was reaching upon a shelf 1 week ago and developed chest pain that improved by the next day reporting the discomfort feeling like a bruise. The patient experienced an onset of a different pain tonight that she describes as constant across bilateral upper chest that worsened somewhat on deep inspiration. Pain does not radiate and is not provoked by activity or palliated by rest. She reports no palpitations, associated diaphoresis, nausea or vomiting. She has had no recent illness, fevers chills or cough but does report intermittent wheezing. The patient reports taking Celebrex on an as-needed basis for her osteoarthritis but has been using more than usual in the last few days. She further endorses acid taste in her mouth for the last several days. She denies complaints of epigastric or abdominal pain and has had reports of hematemesis, hematochezia or melena. She reports a history of constipation. She denies urinary symptoms of urgency frequency burning or hematuria. The patient provides additional history what appears to be a possible TIA biopsy 1 month ago with slurred speech, dysarthria and left arm weakness that resolved spontaneously within a couple hours. The patient did not seek care or evaluation at that time. Upon arrival the ER the patient has a temperature 98.3?, heart rate of 85, blood pressure 183/81, respiratory rate of 21 saturating 100% on room air. A 12 lead EKG is obtained finds sinus rhythm at 77, no ectopy, with an incomplete right bundle branch block, possible inverted T-wave in lead 2 only with prolonged QT, no infarct evident. Chest x-ray notes heart size upper limits of normal without pulmonary edema. CBC is unremarkable as are coags. Her electrolytes are within normal range and she has a BUN of 13 and creatinine 0.79. Nonfasting glucose is 128. Her liver functions are also within normal range. She has a total CK of 57 and troponin is less than 0.012 x 2. Her COVID 19 screening is negative. In the ER the patient is given aspirin 324 mg, nitroglycerin sublingual x3 with relief of chest pain. The patient is admitted to the hospital service for chest pain rule out ACS. Patient History Medical History (Updated 09/15/20 @ 04:18 by DARLENE Mooney) Constipation Environmental allergies Headache History of diverticulitis Morbid obesity Osteoarthritis Surgical History (Updated 09/15/20 @ 04:18 by DARLNEE Mooney) History of abdominal surgery History of cholecystectomy Family & Social History Family History (Updated 09/15/20 @ 04:19 by DARLENE Mooney) Father Heart disease Mother Heart disease Grandmother Heart disease Safety & Behavioral: Feels Safe in Current Yes Environment Tobacco & Substance use: Smoking Status Former smoker alcohol intake frequency 0-2 drinks per day Substance Use Type does not use Meds Home Medications and Allergies Home Medications Medication Instructions Recorded Confirmed Type celecoxib 100 mg PO DAILY 09/15/20 09/15/20 History fluticasone propionate 1 spray INTRANASAL DAILY 09/15/20 09/15/20 History loratadine [Allergy Relief 10 mg PO DAILY 09/15/20 09/15/20 History (loratadine)] Allergies Allergy/AdvReac Type Severity Reaction Status Date / Time dicyclomine [DICYCLOMINE] Allergy Unknown Verified 07/17/20 17:37 ibuprofen [IBUPROFEN] Allergy Unknown Verified 07/17/20 17:37 meloxicam [MELOXICAM] Allergy Unknown Verified 07/17/20 17:37 Review of Systems Review of Systems ROS: Yes All systems reviewed with the patient and are negative except as otherwise documented Exam Vital Signs (past 8 hours): - 09/14/20 23:13 09/14/20 23:14 09/14/20 23:15 Temperature 98.3 F Pulse Rate 84 82 85 Respiratory Rate 21 Blood Pressure 183/81 H 183/81 H Pulse Oximetry 99 98 100 09/14/20 23:30 09/15/20 00:00 09/15/20 00:30 Temperature Pulse Rate 72 74 72 Respiratory Rate 23 24 23 Blood Pressure Pulse Oximetry 98 99 99 09/15/20 00:49 09/15/20 00:55 09/15/20 00:56 Temperature Pulse Rate 77 75 74 Respiratory Rate 26 H 21 23 Blood Pressure 137/65 134/61 Pulse Oximetry 97 97 96 09/15/20 01:00 09/15/20 01:05 09/15/20 01:10 Temperature Pulse Rate 73 72 73 Respiratory Rate 23 22 19 Blood Pressure 132/58 L 130/61 131/59 L Pulse Oximetry 96 97 96 09/15/20 01:15 09/15/20 01:20 09/15/20 01:25 Temperature Pulse Rate 71 72 71 Respiratory Rate 22 21 20 Blood Pressure 133/62 168/78 H 162/74 H Pulse Oximetry 96 97 98 09/15/20 01:30 09/15/20 01:35 09/15/20 01:47 Temperature Pulse Rate 70 71 72 Respiratory Rate 22 21 23 Blood Pressure 148/62 H 150/66 H 152/73 H Pulse Oximetry 98 98 100 09/15/20 02:00 Temperature Pulse Rate 72 Respiratory Rate 20 Blood Pressure 144/71 H Pulse Oximetry 98 Oxygen Delivery Method Room Air Narrative Exam Narrative: GENERAL APPEARANCE: well developed, morbidly obese female who appears to be anxious but in no acute distress. HEENT: Normocephalic, PERRLA, conjunctiva clear, EOMs intact without nystagmus, reported today sanchez with multiple missing teeth, mucous membranes are moist and pink without lesions or exudate. NECK/THYROID: neck supple, no JVD, no thyromegaly, trachea midline. LYMPH NODES: no cervical or supraclavicular lymphadenopathy. SKIN: [place], warm and dry, no visible lesions or rashes. HEART: regular rate and rhythm, S1-S2, no murmur, no rubs or gallops, 3+ bilateral dorsalis pedis pulses, no edema LUNGS: clear to auscultation bilaterally, no coarseness crackles or wheezing, no cough present CHEST: Symmetrical movement, no accessory muscle use, good tidal volume no chest pain on AP or lateral compression. ABDOMEN: Soft, obese and protuberant, no epigastric or abdominal tenderness, no organomegaly, no flank or suprapubic tenderness, active bowel tones. EXTREMITIES: moves all extremities, strength is 5/5 and symmetrical, no deformities or joint effusions, no clubbing or cyanosis. NEUROLOGIC: AAO x4, no lateralizing neurologic deficits, cranial nerves II-XII grossly intact, sensation intact to light touch, hearing grossly normal to speech. PSYCH: Anxious, tangential thought, cooperative, behaviorally stable Objective Labs Result Diagrams: 09/14/20 23:25 09/14/20 23:25 Labs: Laboratory Results - last 24 hr 09/14/20 09/14/20 09/14/20 23:25 23:25 23:25 WBC 8.4 RBC 4.13 Hgb 13.0 Hct 39.0 MCV 94.6 MCH 31.4 MCHC 33.2 RDW 13.9 Plt Count 273 Neut % (Auto) 37.7 L Lymph % (Auto) 52.9 H [place] % (Auto) 6.9 Eos % (Auto) 2.1 Baso % (Auto) 0.4 Neut # (Auto) 3100 Lymph # (Auto) 4400 [place] # (Auto) 600 Eos # (Auto) 200 Baso # (Auto) 0 PT 10.2 INR 0.9 APTT 29 Sodium 140 Potassium 3.7 Chloride 106 Carbon Dioxide 26 BUN 13 Creatinine 0.79 Estimated GFR > 60.0 BUN/Creatinine Ratio 16.5 Glucose 128 H Calcium 8.8 Total Bilirubin 0.1 L AST 27 ALT 19 Alkaline Phosphatase 67 Total Creatine Kinase 57 CK-MB (CK-2) TNP CK-MB (CK-2) Rel Index TNP Troponin I < 0.012 Total Protein 7.5 Albumin 4.0 Globulin 3.5 Albumin/Globulin Ratio 1.1 Lipase 242 Influenza Type A (PCR) Influenza Type B (PCR) RSV (PCR) 09/15/20 09/15/20 01:38 02:12 WBC RBC Hgb Hct MCV MCH MCHC RDW Plt Count Neut % (Auto) Lymph % (Auto) [place] % (Auto) Eos % (Auto) Baso % (Auto) Neut # (Auto) Lymph # (Auto) [place] # (Auto) Eos # (Auto) Baso # (Auto) PT INR APTT Sodium Potassium Chloride Carbon Dioxide BUN Creatinine Estimated GFR BUN/Creatinine Ratio Glucose Calcium Total Bilirubin AST ALT Alkaline Phosphatase Total Creatine Kinase CK-MB (CK-2) CK-MB (CK-2) Rel Index Troponin I < 0.012 Total Protein Albumin Globulin Albumin/Globulin Ratio Lipase Influenza Type A (PCR) Cancelled Influenza Type B (PCR) Cancelled RSV (PCR) Cancelled Assessment & Plan Assessment & Plan narrative: The patient is a 50-year-old [place] female who has a past medical history significant for headaches, diverticulosis, osteoarthritis in constipation who presents to the ER with complaints of chest pain that is constant, sharp across bilateral upper chest without radiation or associated symptoms. 1. Precordial chest pain, cardiac versus acid reflux, present on admission, active. -risk factors for CVD include morbid obesity and strong family history of cardiac disease. She additionally has been taking Celebrex for arthritis pain and describes acid taste in her mouth. -12 lead EKG is sinus rhythm with incomplete right bundle-branch block, inverted T-wave in lead to only with prolonged QT. total CK is 57 and troponin is less than 0.012 x 2. -patient with chest pain upon arrival ER resolved with 3 sublingual nitroglycerin Q 5 minutes x3 as needed for chest pain and morphine 2 mg IV as needed for chest pain -ordered atorvastatin 20 mg daily at bedtime -ordered Protonix 40 mg IV x1 now. -will obtain lipid panel, TSH and hemoglobin A1c. -ordered pharmacologic nuclear med stress testing. 2. Elevated BP reading without diagnosis of hypertension. -upon arrival the ER the patient has a blood pressure of 183/81 which improves to 148/77 on admission to the floor. She takes no blood pressure medication. -will follow blood pressure and treat as indicated. 3. Recurrent headaches, chronic, stable. -patient complains of headache for 3 days worsened with nitro. -ordered Tylenol 650 mg every 4 hours as needed. 4. Osteoarthritis, chronic, stable. -patient takes Celebrex 100 mg by mouth daily as needed for arthritic pain, will hold medication at this time due to probable gastric irritation. VTE prophylaxis: SCDs, Enoxaparin IV fluid: Normal saline 75 cc per Diet: NPO pending cardiac stress test Code status: Full code, the patient designates her children and all S surrogate decision makers. Patient is admitted to the hospital due to the complexity of representation in severity of symptoms requiring further monitoring and evaluation. Patient is admitted as observation status expected length of stay to be less than 2 midnights. COVID-19 COVID-19 status: Negative Result date/Date tested (Pos, Neg/Pending): 09/15/20 Scores GCS Wilson coma scale eye opening: Spontaneous Amelia coma scale verbal response: Orientated Wilson coma scale motor response: Obey commands Wilson coma scale total score: 15 Quality MIPS - Admit I confirm the patient?s Advance Care Plan is present, Code status is documented, Surrogate decision maker is in patient?s record [If Yes, STOP here]: Yes
[2020-09-15 03:25] LABS: COVID19 - ADMIT (NP swab/PCR) Negative (Negative)
[2020-09-15] MEDS: SODIUM CHLORIDE 0.9% 1,000 ML 75 ML IV (03:46)
[2020-09-15] MEDS: PANTOPRAZOLE 40 MG VIAL IV (03:46)
[2020-09-15] MEDS: ACETAMINOPHEN 325 MG TABLET 650 MG PO ×2 (03:58→20:54)
[2020-09-15 05:21] LABS: Hemoglobin A1C% w Est Avg Glu 5.7 % (4.0-6.0)
[2020-09-15 05:22] LABS: BUN Creatinine Ratio 16.4 (6-22); Blood Urea Nitrogen 11 mg/dL (7-17); Calcium 8.5 mg/dL (8.4-10.2); Carbon Dioxide 25 mmol/L (22-32); Chloride 108 mmol/L (98-107); Cholesterol 147 mg/dL (140-199); Estimated Glomerular Filt Rate > 60.0 mL/min (>60); Glucose 102 mg/dL (70-100); HDL Cholesterol 39 mg/dL (40-60); HEMOLYSIS < 15 (0-50); LDL Cholesterol Calculated 69 mg/dL (<100); Magnesium 2.1 mg/dL (1.6-2.3); Potassium 3.8 mmol/L (3.4-5.1); Sodium 140 mmol/L (137-145); Triglycerides 194 mg/dL (35-150)
[2020-09-15 05:31] LABS: NT-proBNP (BNP-Adult 18+) 259 pg/mL (<125)
[2020-09-15 05:33] LABS: Troponin I < 0.012 ng/mL (0.01-0.034)
[2020-09-15 05:49] LABS: TSH w/ Reflex to FT4 0.99 uIU/mL (0.47-4.68)
[2020-09-15] MEDS: ASPIRIN EC 81 MG TABLET PO (09:36)
[2020-09-15] MEDS: ENOXAPARIN 40 MG/0.4 ML SYRINGE SUBCUT ×2 (09:38→20:54)
--- NOTE | 2020-09-15 10:51 | CM.DANOTE ---
DCP: Case received, EMR reviewed and met with patient. , Phil, was also at bedside. Introduced self and role. Was also able to meet with them during team rounds as well. Was able to obtain some information regarding her primary provider,as well as her baseline activity information. DCP assessment completed with information currently available. Patient is a 50 year old female who admitted early this morning to the care of the hospitalist team. PCP: [facility]. Payer: confirmed: Medicaid/[facility]. Patient came to the hospital via private vehicle secondary to having chest pain. Initial symptoms, according to notes, occurred when she was reaching for a cake at her job. Patient developed chest pain, and had taken 3 nitro. She also had an elevated BP. Patient is here for a cardiac work up. She will be having a stress test today. Met with patient and . Patient was laying in bed, sleeping at times. She confirmed that [facility], but did not have a certain provider issued. She is independent at her baseline,and is employed at [employer]. She resides in [place] with her spouse, Phil, who is point of contact. P: DCP to continue to follow and will be available for any needs. Patient should be able to go home when she is medically stable. Mery Dockery RN/Software Engineer Mobile
--- NOTE | 2020-09-15 14:36 | PC.NURSE ---
Pt lying in bed A&Ox3, sleeping this a.m. as she reports finally falling to sleep at 4 a.m. after being in the E.R. VSS, afebrile on RA. LS CTA. Able to ambulate with steady gate this a.m. to BR per pest control technician short run of SVT with ambulating. Pt reports mild soreness to substernal area this a.m. which resolved after lying back. Cleared to eat a heart healthy breakfast and then remained NPO from 945 until 1430. Per Nuclear Med. may need more imaging. Chronometer Assembler And Adjuster will discuss results with hospitalist. Per MD Baer, patient may have Cardiac diet. IVF dc'd.
[2020-09-15] MEDS: ATORVASTATIN 20 MG TABLET PO (20:55)
[2020-09-15] MEDS: SODIUM CHLORIDE 0.9% FLUSH 10 ML IV (20:55)
[2020-09-16 03:52] VITALS: BP 130/55; PULSE 75; RESP 18; TEMP 36.4; O2SAT 97
[2020-09-16 08:00] VITALS: BP 103/53; PULSE 76; RESP 18; TEMP 36.8; O2SAT 96
[2020-09-16] MEDS: ASPIRIN EC 81 MG TABLET PO (09:09)
[2020-09-16] MEDS: ENOXAPARIN 40 MG/0.4 ML SYRINGE SUBCUT (09:09)
[2020-09-16] MEDS: SODIUM CHLORIDE 0.9% FLUSH 10 ML IV (09:10)
[2020-09-16] MEDS: ACETAMINOPHEN 325 MG TABLET 650 MG PO (09:11)
[2020-09-16 12:00] VITALS: BP 130/70; PULSE 85; RESP 18; TEMP 36.2; O2SAT 95
--- NOTE | 2020-09-16 13:10 | P.DS_ITS ---
History of Present Illness History of Present Illness Date Patient Seen: 09/16/20 Time Patient Seen: 13:10 Chief complaint: Chest pain, SOB, headache Narrative: DARLENE Abdi: Ms. Leslie Smith is a 50-year-old [place] female who has a past medical history significant for headaches, diverticulosis, osteoarthritis in cons tipation who presents to the ER with complaints of chest pain. The patient states she was reaching upon a shelf 1 week ago and developed chest pain that improved by the next day reporting the discomfort feeling like a bruise. The patient experienced an onset of a different pain tonight that she describes as constant across bilateral upper chest that worsened somewhat on deep inspiration. Pain does not radiate and is not provoked by activity or palliated by rest. She reports no palpitations, associated diaphoresis, nausea or vomiting. She has had no recent illness, fevers chills or cough but does report intermittent wheezing. The patient reports taking Celebrex on an as-needed basis for her osteoarthritis but has been using more than usual in the last few days. She further endorses acid taste in her mouth for the last several days. She denies complaints of epigastric or abdominal pain and has had reports of hematemesis, hematochezia or melena. She reports a history of constipation. She denies urinary symptoms of urgency frequency burning or hematuria. The patient provides additional history what appears to be a possible TIA biopsy 1 month ago with slurred speech, dysarthria and left arm weakness that resolved spontaneously within a couple hours. The patient did not seek care or evaluation at that time. Upon arrival the ER the patient has a temperature 98.3?, heart rate of 85, blood pressure 183/81, respiratory rate of 21 saturating 100% on room air. A 12 lead EKG is obtained finds sinus rhythm at 77, no ectopy, with an incomplete right bundle branch block, possible inverted T-wave in lead 2 only with prolonged QT, no infarct evident. Chest x-ray notes heart size upper limits of normal without pulmonary edema. CBC is unremarkable as are coags. Her electrolytes are within normal range and she has a BUN of 13 and creatinine 0.79. Nonfasting glucose is 128. Her liver functions are also within normal range. She has a total CK of 57 and troponin is less than 0.012 x 2. Her COVID 19 screening is negative. In the ER the patient is given aspirin 324 mg, nitroglycerin sublingual x3 with relief of chest pain. The patient is admitted to the hospital service for chest pain rule out ACS. Discharge Providers Provider Date of admission: 09/15/20 02:32 Discharge Date: 09/16/20 Consults: 09/15/20 03:22 Consult to Respiratory Therapy Evaluate & Treat Comment: Physician Instructions: Evaluate and treat 09/15/20 03:29 Consult to Dietitian, Adult Routine Comment: Reason For Exam: Morbid obesity Consult to Discharge Planning Routine Comment: Discharge provider: Chadwick Flowers DO Summary Hospital Course Discharge Diagnosis: 1. Precordial chest pain, present on admission, improved 2. Elevated BP reading without diagnosis of hypertension, improved 3. Recurrent headaches, chronic, stable. 4. Osteoarthritis, chronic, stable. Hospital Course: The patient is a 50-year-old [place] female who has a past medical history significant for headaches, diverticulosis, osteoarthritis in constipation who presented to the ER with complaints of chest pain that is constant, sharp across bilateral upper chest without radiation or associated symptoms. Patient was found to have a fixed defect which may be due to chronic ischemia versus breast attenuation artifacts. She was recommended for medical management with aspirin and statin therapy. Her blood pressure improved with treatment of her pain. If her symptoms continue, recommended that she follow-up with her primary care provider for possible referral to Cardiology for more invasive testing, however this is not needed acutely and it is unclear for stress testing represents ischemia or is simply artifact. It is felt more likely that this is due to artifact given no wall motion abnormalities found on echocardiogram. She had improvement in her symptoms. Recommend discharge on medical therapy for possible CAD with asa and statin therapy, and GERD for probable GERD in setting of NSAID use. Exam Vital Signs (past 8 hours): - 09/16/20 08:00 09/16/20 12:00 Temperature 98.2 F 97.2 F L Pulse Rate 76 85 Respiratory Rate 18 18 Blood Pressure 103/53 L 130/70 Pulse Oximetry 96 95 Oxygen Delivery Method Room Air Oxygen Flow Rate 0 Narrative Exam Narrative: GENERAL APPEARANCE: well developed, morbidly obese female in no acute distress. HEENT: Normocephalic, PERRLA, conjunctiva clear, EOMs intact without nystagmus, mucous membranes are moist and pink without lesions or exudate. NECK/THYROID: neck supple, no JVD, no thyromegaly, trachea midline. LYMPH NODES: no cervical or supraclavicular lymphadenopathy. SKIN: [place], warm and dry, no visible lesions or rashes. HEART: regular rate and rhythm, S1-S2, no murmur, no rubs or gallops, no edema LUNGS: clear to auscultation bilaterally, no coarseness crackles or wheezing, no cough present CHEST: Symmetrical movement, no accessory muscle use, good tidal volume no chest pain on AP or lateral compression. ABDOMEN: Soft, obese and protuberant, no epigastric or abdominal tenderness, no organomegaly, no flank or suprapubic tenderness, active bowel tones. EXTREMITIES: moves all extremities, strength is 5/5 and symmetrical, no deformities or joint effusions, no clubbing or cyanosis. NEUROLOGIC: AAO x4, no lateralizing neurologic deficits, cranial nerves II-XII grossly intact, sensation intact to light touch, hearing grossly normal to speech. PSYCH: cooperative, behaviorally stable Objective Labs Result Diagrams: 09/14/20 23:25 09/15/20 04:40 [facility] Medical History (Updated 09/15/20 @ 04:18 by DARLENE Mooney) Constipation Environmental allergies Headache History of diverticulitis Morbid obesity Osteoarthritis Surgical History (Updated 09/15/20 @ 04:18 by DARLENE Mooney) History of abdominal surgery History of cholecystectomy Family History (Updated 09/15/20 @ 04:19 by DARLENE Mooney) Father Heart disease Mother Heart disease Grandmother Heart disease Social History household members: family Smoking Status: Current every day smoker alcohol intake: former Discharge Plan Discharge Plan Patient Disposition: Home Provider Discharge Comment: You were admitted to the hospital with chest pain. Your stress testing shows a possible area of low blood flow but may also be due to what we call breast artifact (normal). If symptoms continue, you should follow up with the clinic and possibly get a referral to cardiology for more testing. For now, will start on aspirin and atorvastatin and recommend you try a 14 day course of omeprazole for possible gastric reflux. Discharge orders & Medications Prescriptions: New atorvastatin [Lipitor] 20 mg Tablet 20 mg PO BEDTIME 30 Days Qty: 30 RF: 0 aspirin 81 mg Tablet,Delayed Release (Dr/Ec) 81 mg PO DAILY 30 Days Qty: 30 RF: 0 omeprazole 20 mg capsule,delayed release(DR/EC) 20 mg PO DAILY 14 Days Qty: 14 RF: 0 Continued fluticasone propionate 50 mcg/actuation spray,suspension 1 spray INTRANASAL DAILY RF: 0 loratadine [Allergy Relief (loratadine)] 10 mg Tablet 10 mg PO DAILY RF: 0 Discontinued celecoxib 100 mg Capsule 100 mg PO DAILY RF: 0 Diet/Activity/Treatments Diet: Diet as Tolerated Activity: As tolerated Discharge Data Attending Provider: Chadwick Arellano VTE Deep Vein Thrombosis/Pulmonary Embolism Present on Admission: No
--- NOTE | 2020-09-16 13:39 | DI.NM.S_ITS ---
DATE OF SERVICE: PROCEDURE: Exercise perfusion study. DATE OF STUDY: 09/15/2020 INDICATIONS: Chest pain. RADIOPHARMACEUTICAL: 24.6 millicurie technetium-99m Myoview IV was injected at stress and 26.5 millicurie technetium-99m Myoview IV was injected at rest. CARDIAC STRESS: The patient underwent exercise perfusion study under the supervision of an attending staff. She walked on Dominik protocol for about 6 minutes and 13 seconds, achieved 85% of target rate, 7 METs of workload and functional aerobic impairment positive 21%. There was normal blood pressure response. The patient developed shortness of breath at second stage, as well as developed chest discomfort which was on a scale of 1-10 about 4 in intensity and at peak at least up to 8 in intensity and got improved during recovery. Resting EKG revealed sinus rhythm with right bundle branch block. During stress, no convincing new ischemic changes seen. No new significant arrhythmias seen. RAW DATA: There is significant breast shadow seen. GATED STUDY: Stress LV ejection fraction 71% without any obvious wall motion abnormalities. Resting end-diastolic volume 170 mL. TID ratio 0.93, which is within normal limits. Lung/heart ratio 0.32 which is within normal limits. MYOCARDIAL PERFUSION SCAN: Stress supine and resting supine images were compared to each other. Please note that there are no prone images. There appears to be predominantly fixed, small to moderate size, mildly decreased perfusion of mid to distal anterior wall, as well as basal lateral wall without any reversible ischemia. CONCLUSION: The patient has predominantly fixed, small to moderate size, mildly decreased perfusion of mid to distal anterior wall and basal lateral wall. The patient has large breast shadow on raw images. On gated study, left ventricular function is preserved without any obvious wall motion abnormalities. Normal wall motion goes against the diagnosis of previous transmural myocardial infarction. We do not have any prone images. There is a possibility of persistent tissue attenuation artifact causing this fixed defect however one cannot rule out for possibility of nontransmural myocardial infarction. The patient had chest discomfort during exercise, which got resolved in recovery without any significant ischemic changes. Clinical correlation is recommended. Leslie Smith - Dav/ksenia doc#: [id number]/job#: [id number] dd: 09/16/2020 12:52:00 dt: 09/16/2020 13:18:00 DICTATING MD/COPIES TO: Peg Baig MD COPIES MNE: AYAN;
--- NOTE | 2020-09-16 15:20 | PC.NURSE ---
Day shift note: Patient discharge home per MD order, discussed importance of new medication adherence, F/U with PMD, and dietary modifications. Both spouse and patient verbalized understanding of instructions. Home via private vehicle in stable condition.
--- NOTE | 2020-09-16 16:37 | CM.DANOTE ---
Discharge Planning/Care Management CM Discharge Assessment Start: 09/15/20 10:50 Freq: Status: Discharge Protocol: Document 09/15/20 10:50 (Rec: 09/15/20 10:57 [id number]) Discharge Planning Assessment Advance Directives? No History Provided By Patient,Medical Record Prior Living Arrangements House Household Members family Type of transporation used prior to Drives own vehicle admit Independent with ADL's Yes Is patient alert and oriented? Yes Caregiver for Another No Barriers to Discharge No Discharge Plan Home Transportation Arrangement Spouse, Phil Referrals Initiated None needed Whiteboard Updated in Patient Room with Yes name and ext. 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 Assessment Note by Mery Dockery DCP: Case received, EMR reviewed and met with patient. , Phil, was also at bedside. Introduced self and role. Was also able to meet with them during team rounds as well. Was able to obtain some information regarding her primary provider,as well as her baseline activity information. DCP assessment completed with information currently available. Patient is a 50 year old female who admitted early this morning to the care of the hospitalist team. PCP: [facility]. Payer: confirmed: Medicaid/[facility]. Patient came to the hospital via private vehicle secondary to having chest pain. Initial symptoms, according to notes, occurred when she was reaching for a cake at her job. Patient developed chest pain, and had taken 3 nitro. She also had an elevated BP. Patient is here for a cardiac work up. She will be having a stress test today. Met with patient and . Patient was laying in bed, sleeping at times. She confirmed that she has gone to [facility] for head aches, but did not have a certain provider issued. She is independent at her baseline,and is employed at [employer]. She resides in [place] with her spouse, Phil, who is point of contact. P: DCP to continue to follow and will be available for any needs. Patient should be able to go home when she is medically stable. Mery Dockery RN/Candy Counter Clerk Initialized on 09/15/20 10:51 - END OF NOTE Document 09/16/20 16:36 ITV (Rec: 09/16/20 16:37 ITV [id number]) Discharge Planning Assessment Advance Directives? No History Provided By Patient,Medical Record Prior Living Arrangements House Household Members family Type of transporation used prior to Drives own vehicle admit Independent with ADL's Yes Is patient alert and oriented? Yes Caregiver for Another No Barriers to Discharge No Discharge Plan Home Transportation Arrangement Spouse, Phil Referrals Initiated None needed Whiteboard Updated in Patient Room with Yes name and ext. # of Laborer Drying Department Review Status In Process Next Review Type Continued Stay Review
--- NOTE | 2020-09-24 11:45 | PC.NURSE ---
Late Entry; NS infusion initiated 09/15 at 03:46, stopped per MD order at 14:23.
== END 2020-09-16 15:20 | disposition home or self-care (01) ==
LOC: ED 09-15 02:32 → AC 09-15 02:33
PROVIDERS: Admitting Provider Nurse Practitioner Adult Health; Emergency Provider Emergency Medicine; Referring Provider Emergency Medicine; Visit Provider Nurse Practitioner Adult Health
DX: R07.2 Precordial pain (principal); R06.02 Shortness of breath; R51.9 Headache, unspecified; R03.0 Elevated blood-pressure reading, without diagnosis of hypertension; M19.90 Unspecified osteoarthritis, unspecified site; Z20.822 Contact with and (suspected) exposure to COVID-19
CPT/HCPCS: 36415; 71045; 78452; 80048; 80053; 80061; 82550; 82553; 83036; 83690; 83735; 83880; 84443; 84484; 85025; 85610; 85730; 87635; 93005; 93017; 96361; 96372; 96374; 99284; C9803; G0378; A9502; C9113; J1650

== ENCOUNTER 2021-10-07 22:46 | Emergency (ER) | payer MEDICAID, OTHER, SELFPAY ==
[2020-09-15 02:58] VITALS: BMI 49.6
[2021-10-07] VITALS (11 sets, daily range): BP systolic 127–146; BP diastolic 61–67; PULSE 73–83; RESP 22–30; TEMP 36.7; O2SAT 95–99; BMI 38.9
--- NOTE | 2021-10-07 22:56 | DI.RAD.S_ITS ---
PROCEDURE: XR CHEST 1V INDICATIONS: Short of breath, fatigue TECHNIQUE: One view of the chest was acquired. COMPARISON: [facility], , CHEST 1 VIEW, 02/26/2012, 0:31. [facility], , XR CHEST 1V, 09/26/2018, 2:05. [facility], CR, XR CHEST 1V, 09/14/2020, 23:20. FINDINGS: This examination is limited by involuntary motion artifact. Surgical changes and devices: None. Lungs and pleura: Lungs are clear. No pleural effusions or pneumothorax. Mediastinum: Mediastinal contours appear normal. Heart size is normal. Bones and chest wall: No suspicious bony lesions. Overlying soft tissues appear unremarkable. The patient's chin overlies the lung apices. IMPRESSION: Limited portable chest examination, without a significant cardiopulmonary abnormality identified. Dictated by: Kishore Beach M.D. on 10/07/2021 at 22:11 Approved by: Kishore Beach M.D. on 10/07/2021 at 22:12
[2021-10-07] MEDS: ASPIRIN 81 MG CHEW TAB 324 MG PO (23:13)
[2021-10-07] MEDS: NITROGLYCERIN 0.4 MG SL TAB SL ×2 (23:16→23:30)
[2021-10-07 23:17] LABS: Add Manual Diff / Slide Review NO; Basophils Absolute Auto 100 /uL (0-100); Basophils Percent Auto 0.7 % (0-2); Eosinophils Absolute Auto 200 /uL (0-450); Eosinophils Percent Auto 2.4 % (2-4); Hematocrit 36.1 % (36-46); Hemoglobin 12.3 g/dL (12.0-16.0); Lymphocytes Absolute Auto 4200 /uL (1100-4500); Lymphocytes Percent Auto 47.2 % (25-40); Mean Corpuscular Volume 94.3 fL (80-100); Monocytes Absolute Auto 600 /uL (0-900); Monocytes Percent Auto 6.5 % (3-14); Neutrophils Absolute Auto 3800 /uL (1500-7000); Neutrophils Percent Auto 43.2 % (50-75); Platelet Count 312 X10^3/uL (150-400); Red Blood Cell Count 3.83 X10^6/uL (4.0-5.2); Red Cell Distribution Width 14.8 % (11.6-14.8); White Blood Cell Count 8.9 X10^3/uL (4.5-11.0)
[2021-10-07 23:39] LABS: COVID19 -Nasal RAPID Negative (Negative)
[2021-10-07 23:53] LABS: INR 0.9 (0.9-1.3); Prothrombin Time 9.9 SECONDS (10.1-12.7)
[2021-10-07] MEDS: SODIUM CHLORIDE 0.9% 1,000 ML 150 ML IV (23:53)
[2021-10-07] MEDS: HEPARIN 5,000 UNIT/ML VIAL 5000 UNIT IV (23:54)
[2021-10-07] MEDS: METOPROLOL TARTRATE 5 MG/5 ML INJ IV (23:54)
[2021-10-07 23:56] LABS: PTT Partial Thromboplastin Tim 28 SECONDS (26.4-36.2)
[2021-10-07 23:58] LABS: Alanine Aminotransferase 17 IU/L (<35); Albumin 3.9 g/dL (3.5-5.0); Albumin Globulin Ratio 1.1 (1.0-2.8); Alkaline Phosphatase 67 U/L (38-126); Aspartate Aminotransferase 20 IU/L (14-36); BUN Creatinine Ratio 15.2 (6-22); Bilirubin Total 0.3 mg/dL (0.2-1.3); Blood Urea Nitrogen 16 mg/dL (7-17); Calcium 8.2 mg/dL (8.4-10.2); Carbon Dioxide 27 mmol/L (22-32); Chloride 106 mmol/L (98-107); Creatine Kinase 87 U/L (30-135); D Dimer < 200 ng/mL (<230); Estimated Glomerular Filt Rate > 60 mL/min (>60); Globulin 3.5 g/dL (1.7-4.1); Glucose 126 mg/dL (70-100); HEMOLYSIS < 15 (0-50); Lipase 281 U/L (23-300); Potassium 4.1 mmol/L (3.4-5.1); Sodium 140 mmol/L (137-145); Total Protein 7.4 g/dL (6.3-8.2)
[2021-10-08] VITALS (25 sets, daily range): BP systolic 114–150; BP diastolic 55–70; PULSE 57–78; RESP 18–25; O2SAT 95–100
[2021-10-08] MEDS: HEPARIN DRIP 25,000 UNIT/500 ML IV.SOLN 20 UNIT IV (00:07)
[2021-10-08 00:10] LABS: NT-proBNP (BNP-Adult 18+) 153 pg/mL (<125); Troponin I < 0.012 ng/mL (0.01-0.034)
[2021-10-08] MEDS: ATORVASTATIN 20 MG TABLET 40 MG PO (00:10)
[2021-10-08] MEDS: METOPROLOL TARTRATE 5 MG/5 ML INJ IV ×2 (00:12→00:25)
--- NOTE | 2021-10-08 01:12 | ED_ITS ---
HPI - Chest Pain General Chief Complaint: Chest Pain Stated Complaint: dizzy short of breath allergies chest pain Time Seen by Provider: 10/07/21 22:56 Source: patient and family Limitations: no limitations History of Present Illness HPI narrative: 51-year-old female daily smoker without other significant medical history presents with her and a chief complaint of shortness of breath, retrosternal chest pressure and dizziness that has been present for the past few hours. She denies any recent injury, change in medications or diet. She states that the chest pressure in her chest seems to radiate to her left shoulder and is made worse with exertion. It seems to improve with rest. She denies any change in symptoms with change in position. She has been nauseated but denies any vomiting and becomes significantly short of breath with minimal exertion. She was admitted for chest pain about 1 year ago and had a stress test that noticed fixed, small to moderate perfusion abnormalities to distal anterior wall without wall motion abnormalities. Per patient she had no further workup Related Data Home Medications Medication Instructions Recorded Confirmed fluticasone propionate 50 1 spray INTRANASAL DAILY 09/15/20 10/07/21 mcg/actuation nasal spray,suspension loratadine 10 mg tablet (Allergy 10 mg PO DAILY 09/15/20 10/07/21 Relief (loratadine)) Allergies Allergy/AdvReac Type Severity Reaction Status Date / Time dicyclomine [DICYCLOMINE] Allergy Unknown Verified 10/07/21 22:52 ibuprofen [IBUPROFEN] Allergy Unknown Verified 10/07/21 22:52 meloxicam [MELOXICAM] Allergy Unknown Verified 10/07/21 22:52 Review of Systems Review of Systems Narrative: GENERAL: See HPI HEENT: Denies sinus pain, ear pain, sore throat, difficulty swallowing, dizziness. RESPIRATORY: See HPI CARDIOVASCULAR: See HPI GASTROINTESTINAL: See HPI : Denies dysuria, frequency, incontinence, hematuria, urinary retention. MUSCULOSKELETAL: denies weakness, joint pain, or bony pain SKIN: Denies rash, skin lesions, or other NEUROLOGIC: Denies weakness, headache, numbness, change in speech, confusion, seizures, incoordination. PSYCHIATRIC: No concerning psychosocial issues. 12 point review of systems is negative except for those stated above Patient History Medical History Constipation Environmental allergies Headache History of diverticulitis Morbid obesity Osteoarthritis Surgical History History of abdominal surgery History of cholecystectomy Family History Father Heart disease Mother Heart disease Grandmother Heart disease Social History household members: family Smoking Status: Current every day smoker alcohol intake: former Smoking Status: Current every day smoker alcohol intake frequency: holidays/special occasions only Substance Use Type: does not use Exam Narrative Exam Narrative: GENERAL: [51 year old patient appears stated age. Well-developed patient, in moderate distress, clearly uncomfortable HEAD: Atraumatic. Normocephalic. EYES: Pupils equal round and reactive. Extraocular motions intact. No scleral icterus. No injection or drainage. ENT: Nose without bleeding, purulent drainage. Throat without erythema, tonsillar hypertrophy or exudate. Airway patent. NECK: Trachea midline. Non tender CARDIOVASCULAR: Regular rate and rhythm without murmurs, gallops, or rubs. RESPIRATORY: Clear to auscultation. Breath sounds equal bilaterally. No wheezes, rales, or rhonchi. GASTROINTESTINAL: Abdomen soft, non-tender, nondistended. EXTREMITIES: No edema or joint tenderness. BACK: Nontender without deformity or crepitance. No flank tenderness. NEURO: AOx3. SKIN: No rash or erythema of visible areas Initial Vital Signs Initial Vital Signs: Vital Signs Temperature 98.1 F 10/07/21 22:52 Pulse Rate 79 10/07/21 22:52 Respiratory Rate 30 H 10/07/21 22:52 Pulse Oximetry 99 10/07/21 22:52 Scores HEART Score Heart Score history: Highly Suspicious Heart Score EKG: Non-Specific repolarization disturbance Heart Score Age: 45-64 years old Heart Score risk factors: 1-2 risk factors Heart Score troponin: < or = to normal limit Heart Score Total: 5 Course Course Course Narrative: Launch?[address] [address] Nuclear Medicine Report Signed Patient: Leslie Smith MR#: [id number] : 1970 Acct:[id number] Age/Sex: 50 / F Date of Service: 09/15/20 Loc: 221-1 Accession Number: [id number] ?? Procedure: NM sandeep perf SPECT rest & str Ordering Provider: Chadwick Arellano ? DATE OF SERVICE: ? PROCEDURE:? Exercise perfusion study. ? DATE OF STUDY:? 09/15/2020 ? INDICATIONS:? Chest pain. ? RADIOPHARMACEUTICAL:? 24.6 millicurie technetium-99m Myoview IV was injected at stress and 26.5 millicurie technetium-99m Myoview IV was injected at rest. ? CARDIAC STRESS:? The patient underwent exercise perfusion study under the supervision of an attending staff.? She walked on Dominik protocol for about 6 minutes and 13 seconds, achieved 85% of target rate, 7 METs of workload and functional aerobic impairment positive 21%.? There was normal blood pressure response.? The patient developed shortness of breath at second stage, as well as developed chest discomfort which was on a scale of 1-10 about 4 in intensity and at peak at least up to 8 in intensity and got improved during recovery.? Resting EKG revealed sinus rhythm with right bundle branch block.? During stress, no convincing new ischemic changes seen.? No new significant arrhythmias seen. ? RAW DATA:? There is significant breast shadow seen. ? GATED STUDY:? Stress LV ejection fraction 71% without any obvious wall motion abnormalities.? Resting end-diastolic volume 170 mL.? TID ratio 0.93, which is within normal limits.? Lung/heart ratio 0.32 which is within normal limits. ? MYOCARDIAL PERFUSION SCAN:? Stress supine and resting supine images were compared to each other.? Please note that there are no prone images.? There appears to be predominantly fixed, small to moderate size, mildly decreased perfusion of mid to distal anterior wall, as well as basal lateral wall without any reversible ischemia. ? CONCLUSION:? The patient has predominantly fixed, small to moderate size, mildly decreased perfusion of mid to distal anterior wall and basal lateral wall.? The patient has large breast shadow on raw images.? On gated study, left ventricular function is preserved without any obvious wall motion abnormalities.? Normal wall motion goes against the diagnosis of previous transmural myocardial infarction.? We do not have any prone images.? There is a possibility of persistent tissue attenuation artifact causing this fixed defect however one cannot rule out for possibility of nontransmural myocardial infarction.? The patient had chest discomfort during exercise, which got resolved in recovery without any significant ischemic changes.? Clinical correlation is recommended. ? ? ? Leslie Smith - CONSTANTINE/phani/ksenia doc#: [id number]/job#:? [id number] dd: 09/16/2020 12:52:00 dt: 09/16/2020 13:18:00 DICTATING MD/COPIES TO: Peg Baig MD COPIES MNE: PALV; Orders Ordered: ED Orders 10/07/21 22:55 EKG-12 Lead Stat 10/07/21 22:56 XR chest 1V Stat 10/07/21 23:00 Complete Blood Count AUTO DIFF Stat 10/07/21 23:10 EKG-12 Lead Routine 10/07/21 23:19 COVID19 -Nasal RAPID/Pre-Proc Stat 10/07/21 23:25 EKG-12 Lead Routine 10/07/21 23:40 Comprehensive Metabolic Panel Stat D Dimer Stat Lipase Stat NT-proBNP (BNP-Adult 18+) Stat Partial Thromboplastin Time Stat Prothrombin Time INR Stat Troponin & CK Cardiac Panel Stat 10/07/21 23:47 EKG-12 Lead Routine 10/08/21 02:10 Troponin & CK Cardiac Panel Stat 10/08/21 05:45 Partial Thromboplastin Time Q6H 10/08/21 11:45 Partial Thromboplastin Time Q6H 10/08/21 17:45 Partial Thromboplastin Time Q6H Sodium Chloride (Normal Saline 0.9%) 1,000 mls @ 150 mls/hr IV CONT SEBASTIAN Last Admin: 10/07/21 23:53 Dose: 150 mls/hr Documented by: ROXANNE Heparin Sodium/Dextrose (Heparin Drip) 25,000 unit in 500 mls @ 20 mls/hr IV CONT SEBASTIAN; Protocol Last Admin: 10/08/21 00:07 Dose: 1,000 units/hr, 20 mls/hr Documented by: ROXANNE Nitroglycerin (Nitroglycerin 0.4 Mg Sl Tab) 0.4 mg SL [id number] PRN PRN Reason: Chest Pain Last Admin: 10/07/21 23:30 Dose: 0.4 mg Documented by: ATAYLJONATHAN Admin: 10/07/21 23:16 Dose: 0.4 mg Documented by: STEVEYLJONATHAN Discontinued Medications Aspirin (Aspirin 81 Mg Chew Tab) 324 mg PO NOW ONE Stop: 10/07/21 22:57 Last Admin: 10/07/21 23:13 Dose: 324 mg Documented by: NERI Atorvastatin Calcium (Atorvastatin 20 Mg Tablet) 40 mg PO NOW ONE Stop: 10/07/21 23:42 Last Admin: 10/08/21 00:10 Dose: 40 mg Documented by: ROXANNE Heparin Sodium (Porcine) (Heparin 5,000 Unit/Ml Vial) 5,000 unit IV NOW ONE Stop: 10/07/21 23:42 Last Admin: 10/07/21 23:54 Dose: 5,000 unit Documented by: ROXANNE Metoprolol Tartrate (Metoprolol Tartrate 5 Mg/5 Ml Inj) 5 mg IV Q5M SEBASTIAN Stop: 10/07/21 23:56 Last Admin: 10/08/21 00:25 Dose: 5 mg Documented by: Admin: 10/08/21 00:12 Dose: 5 mg Documented by: Admin: 10/07/21 23:54 Dose: 5 mg Documented by: ROXANNE Reevaluation(s) Reevaluation #1: With significant improvement after 3 nitro Reevaluation #2: patient continues to be pain free Time: 04:43 Consultations Consultation #1: Dr. Pride (Cardiology at [facility]) agrees with diagnosis and plan. Recommends we continue heparin and transfer to cardiac center for likely cath [facility] no beds [facility] beds. on list [facility] no beds. will take info Consultation #2: Dr. Dong (Hospitalist at ) happy to accept. We may arrange for transport Vital Signs Vital signs: Vital Signs - 8 hr 10/07/21 22:52 10/07/21 22:57 10/07/21 23:00 Temperature 98.1 F Pulse Rate 79 81 79 Respiratory Rate 30 H 28 H Blood Pressure 146/67 H Pulse Oximetry 99 99 98 10/07/21 23:04 10/07/21 23:30 10/07/21 23:35 Temperature Pulse Rate 75 78 79 Respiratory Rate 25 H 23 Blood Pressure 146/67 H 134/62 Pulse Oximetry 95 97 10/07/21 23:40 10/07/21 23:43 10/07/21 23:45 Temperature Pulse Rate 83 77 78 Respiratory Rate 24 24 22 Blood Pressure 136/64 137/64 Pulse Oximetry 97 98 98 10/07/21 23:50 10/07/21 23:55 10/08/21 00:00 Temperature Pulse Rate 77 73 78 Respiratory Rate 27 H 24 21 Blood Pressure 127/61 131/70 Pulse Oximetry 98 98 10/08/21 00:05 10/08/21 00:10 10/08/21 00:15 Temperature Pulse Rate 74 76 67 Respiratory Rate 19 25 H 23 Blood Pressure 123/56 L 122/59 L 120/58 L Pulse Oximetry 98 98 100 10/08/21 00:20 10/08/21 00:25 10/08/21 00:30 Temperature Pulse Rate 64 61 60 Respiratory Rate 23 19 18 Blood Pressure 118/55 L 114/56 L 118/55 L Pulse Oximetry 98 98 98 10/08/21 00:35 10/08/21 00:40 10/08/21 00:45 Temperature Pulse Rate 58 L 58 L 57 L Respiratory Rate 19 21 18 Blood Pressure 121/60 117/57 L 120/55 L Pulse Oximetry 98 98 97 10/08/21 00:50 10/08/21 00:55 10/08/21 01:00 Temperature Pulse Rate 58 L 58 L 58 L Respiratory Rate 20 19 18 Blood Pressure 118/58 L Pulse Oximetry 98 98 98 10/08/21 01:05 10/08/21 01:30 10/08/21 02:00 Temperature Pulse Rate 62 62 63 Respiratory Rate 20 18 21 Blood Pressure 119/57 L 122/59 L Pulse Oximetry 100 98 97 10/08/21 02:30 10/08/21 03:00 10/08/21 03:30 Temperature Pulse Rate 64 62 66 Respiratory Rate 22 19 18 Blood Pressure 136/64 126/59 L 125/60 Pulse Oximetry 97 96 96 10/08/21 04:00 Temperature Pulse Rate 62 Respiratory Rate 20 Blood Pressure 150/65 H Pulse Oximetry 95 MDM - Chest Pain Lab Data Result diagrams: 10/07/21 23:00 10/07/21 23:40 Labs: Lab Results 10/07/21 10/07/21 10/07/21 Range/Units 23:00 23:19 23:40 WBC 8.9 (4.5-11.0) X10^3/uL RBC 3.83 L (4.0-5.2) X10^6/uL Hgb 12.3 (12.0-16.0) g/dL Hct 36.1 (36-46) % MCV 94.3 (80-100) fL MCH 32.0 (26-34) PG MCHC 34.0 (30-36) % RDW 14.8 (11.6-14.8) % Plt Count 312 (150-400) X10^3/uL Neut % (Auto) 43.2 L (50-75) % Lymph % (Auto) 47.2 H (25-40) % [place] % (Auto) 6.5 (3-14) % Eos % (Auto) 2.4 (2-4) % Baso % (Auto) 0.7 (0-2) % Neut # (Auto) 3800 (7039-6794) /uL Lymph # (Auto) 4200 (2100-4338) /uL [place] # (Auto) 600 (0-900) /uL Eos # (Auto) 200 (0-450) /uL Baso # (Auto) 100 (0-100) /uL PT 9.9 L (10.1-12.7) SECONDS INR 0.9 (0.9-1.3) APTT 28 (26.4-36.2) SECONDS D-Dimer < 200 (<230) ng/mL Sodium (137-145) mmol/L Potassium (3.4-5.1) mmol/L Chloride (98-107) mmol/L Carbon Dioxide (22-32) mmol/L BUN (7-17) mg/dL Creatinine (0.52-1.04) mg/dL Estimated GFR (>60) mL/min BUN/Creatinine Ratio (6-22) Glucose (70-100) mg/dL Calcium (8.4-10.2) mg/dL Total Bilirubin (0.2-1.3) mg/dL AST (14-36) IU/L ALT (<35) IU/L Alkaline Phosphatase (38-126) U/L Total Creatine Kinase (30-135) U/L CK-MB (CK-2) CK-MB (CK-2) Rel Index Troponin I (0.01-0.034) ng/mL NT-Pro-B Natriuret Pep (<125) pg/mL Total Protein (6.3-8.2) g/dL Albumin (3.5-5.0) g/dL Globulin (1.7-4.1) g/dL Albumin/Globulin Ratio (1.0-2.8) Lipase (23-300) U/L SARS-CoV-2 (PCR) Negative (Negative) 10/07/21 10/08/21 Range/Units 23:40 02:10 WBC (4.5-11.0) X10^3/uL RBC (4.0-5.2) X10^6/uL Hgb (12.0-16.0) g/dL Hct (36-46) % MCV (80-100) fL MCH (26-34) PG MCHC (30-36) % RDW (11.6-14.8) % Plt Count (150-400) X10^3/uL Neut % (Auto) (50-75) % Lymph % (Auto) (25-40) % [place] % (Auto) (3-14) % Eos % (Auto) (2-4) % Baso % (Auto) (0-2) % Neut # (Auto) (1014-3262) /uL Lymph # (Auto) (7247-1369) /uL [place] # (Auto) (0-900) /uL Eos # (Auto) (0-450) /uL Baso # (Auto) (0-100) /uL PT (10.1-12.7) SECONDS INR (0.9-1.3) APTT (26.4-36.2) SECONDS D-Dimer (<230) ng/mL Sodium 140 (137-145) mmol/L Potassium 4.1 (3.4-5.1) mmol/L Chloride 106 (98-107) mmol/L Carbon Dioxide 27 (22-32) mmol/L BUN 16 (7-17) mg/dL Creatinine 1.05 H (0.52-1.04) mg/dL Estimated GFR > 60 (>60) mL/min BUN/Creatinine Ratio 15.2 (6-22) Glucose 126 H (70-100) mg/dL Calcium 8.2 L (8.4-10.2) mg/dL Total Bilirubin 0.3 (0.2-1.3) mg/dL AST 20 (14-36) IU/L ALT 17 (<35) IU/L Alkaline Phosphatase 67 (38-126) U/L Total Creatine Kinase 87 82 (30-135) U/L CK-MB (CK-2) TNP TNP CK-MB (CK-2) Rel Index TNP TNP Troponin I < 0.012 < 0.012 (0.01-0.034) ng/mL NT-Pro-B Natriuret Pep 153 H (<125) pg/mL Total Protein 7.4 (6.3-8.2) g/dL Albumin 3.9 (3.5-5.0) g/dL Globulin 3.5 (1.7-4.1) g/dL Albumin/Globulin Ratio 1.1 (1.0-2.8) Lipase 281 (23-300) U/L SARS-CoV-2 (PCR) (Negative) Imaging Data Chest x-ray: Radiologist's Impression: Leslie Smith?(VIP)??51??F??1970 ? Allergy/Adv: dicyclomine, ibuprofen, meloxicam (More??) Close Chest X-Ray (Signed) Kishore Beach - 10/07/21 Radiology Report (Cancelled) Randolph Baigu - 09/16/20 Myocardial Perfusion Scan Nuc Med (Signed) Randolph Baigu - 09/16/20 Myocardial Perfusion Scan Nuc Med (Cancelled) 09/15/20 Telemetry Strips 09/15/20 Chest X-Ray (Signed) Shantel Jose - 09/14/20 Knee X-Ray (Signed) Kain Figueroa - 06/30/20 Hip X-Ray (Signed) Shantel Jose - 06/30/20 Hip X-Ray (Cancelled) 06/30/[address] (Signed) Fawn Rosenthal - 09/26/18 Chest X-Ray (Signed) Maria E Segura - 09/26/18 Chest/Abdomen CTA (Signed) Nic Rodriguez - 06/04/18 Abdomen Ultrasound (Signed) Nic Rodriguez - 06/04/18 Chest X-Ray (Signed) Charlotte Grant - 05/10/[address] [address] XRay Report Signed Patient: Leslie Smith MR#: [id number] : 1970 Acct:[id number] Age/Sex: 51 / F Date of Service: 10/07/21 Loc: Accession Number: [id number] ?? Procedure: XR chest 1V Ordering Provider: Colt Santos D.O. PROCEDURE:? XR CHEST 1V ? INDICATIONS:? Short of breath, fatigue ? TECHNIQUE:? One view of the chest was acquired.? ? COMPARISON:? [facility], CR, CHEST 1 VIEW, 02/26/2012, 0:31.? [facility], CR, XR CHEST 1V, 09/26/2018, 2:05.? [facility], CR, XR CHEST 1V, 09/14/2020, 23:20. ? FINDINGS:? This examination is limited by involuntary motion artifact.? ? Surgical changes and devices:? None.? ? Lungs and pleura:? Lungs are clear.? No pleural effusions or pneumothorax.? ? Mediastinum:? Mediastinal contours appear normal.? Heart size is normal.? ? Bones and chest wall:? No suspicious bony lesions.? Overlying soft tissues appear unremarkable.? The patient's chin overlies the lung apices. ? ? IMPRESSION:? ? Limited portable chest examination, without a significant cardiopulmonary abnormality identified.? ? ? Dictated by: Kishore Beach M.D. on 10/07/2021 at 22:11 ? ? Approved by: Kishore Beach M.D. on 10/07/2021 at 22:12 ? ECG Data Interpretation: 2255 - EKG is normal sinus rhythm rate [79] and free of ectopy. No ST segmental elevation or depression. T wave inversions in V1/V2. NM 144. QRS 90. QTc 497 2310 - EKG is normal sinus rhythm rate [76] and free of ectopy. No ST segmental elevation or depression. T wave inversions in V1/V2. NM 134. QRS 90. QTc 497 2325 - EKG is normal sinus rhythm rate [79] and free of ectopy. No ST segmental elevation or depression. T wave inversions in V1/V2/V3. NM 138. QRS 92. QTc 506 2347 - EKG is normal sinus rhythm rate [75] and free of ectopy. No ST segmental elevation or depression. T wave inversions in V1/V2/V3. NM 130. QRS 90. QTc 498 Critical Care Time Critical Care Time Critical Care Time: Yes Total Critical Care Time: 35 Attestation: The high probability of a clinically significant, sudden or life threatening deterioration of the [CV] system(s) required my full and direct attention, intervention and personal management. The aggregate critical care time was [35] minutes. This time is in addition to time spent performing reported procedures but includes the following: [x] Data Review and interpretation [x] Patient assessment and monitoring of vital signs [x] Documentation [x] Medication orders and management Discharge Plan Departure Patient Disposition: [facility] Clinical Impression: ACS (acute coronary syndrome) Prescriptions: No Action fluticasone propionate 50 mcg/actuation spray,suspension 1 spray INTRANASAL DAILY 0RF Label Comments: USE 2 SPRAYS INTO EACH NOSTRIL DAILY FOR ALLERGY loratadine [Allergy Relief (loratadine)] 10 mg Tablet 10 mg PO DAILY 0RF Referrals: Miscellaneous,Doctor, MD [Primary Care Provider] -
--- NOTE | 2021-10-08 02:21 | PC.NURSE ---
Pt reports pain with moving around in the bed that settles with rest.
[2021-10-08 02:36] LABS: Creatine Kinase 82 U/L (30-135)
[2021-10-08 02:49] LABS: Troponin I < 0.012 ng/mL (0.01-0.034)
--- NOTE | 2021-10-08 04:55 | PC.NURSE ---
Report given to transfer center [facility]
[2021-10-08 06:00] LABS: PTT Partial Thromboplastin Tim 36 SECONDS (26.4-36.2)
== END 2021-10-08 06:13 | disposition short-term general hospital (02) ==
PROVIDERS: Emergency Provider Emergency Medicine
DX: I24.9 Acute ischemic heart disease, unspecified (principal); R06.02 Shortness of breath; R42 Dizziness and giddiness; Z20.822 Contact with and (suspected) exposure to COVID-19
CPT/HCPCS: 36415; 71045; 80053; 82550; 83690; 83880; 84484; 85025; 85379; 85610; 85730; 87635; 93005; 93010; 96365; 96366; 96375; 96376; 99284; 99285; 99291; 99292; C9803; J1644

== ENCOUNTER 2022-07-10 23:16 | Emergency (ER) | payer MEDICAID, OTHER, SELFPAY ==
[2020-09-15 02:58] VITALS: BMI 49.6
[2022-07-10 23:33] VITALS: BP 143/65; PULSE 71; RESP 15; TEMP 35.8; O2SAT 98; BMI 42.5
--- NOTE | 2022-07-10 23:45 | DI.US.S_ITS ---
PROCEDURE: US PERIPH VENOUS LOW EXTREM BI INDICATIONS: EDEMA TECHNIQUE: Real-time imaging, as well as color and pulse Doppler interrogation, were performed of the deep veins of both legs from the inguinal ligament to the popliteal fossa. COMPARISON: None. FINDINGS: Right: The common femoral, femoral and popliteal veins are normally compressible, and free of intraluminal thrombus. Color and pulse Doppler demonstrate normal phasic intravascular flow. There is normal augmentation response to distal compression maneuver. Left: The common femoral, femoral and popliteal veins are normally compressible, and free of intraluminal thrombus. Color and pulse Doppler demonstrate normal phasic intravascular flow. There is normal augmentation response to distal compression maneuver. IMPRESSION: 1. No evidence of deep venous thrombosis in the right or left lower extremity. Dictated by: Andrés Campbell M.D. on 07/11/2022 at 0:42 Approved by: Andrés Campbell M.D. on 07/11/2022 at 0:43
--- NOTE | 2022-07-11 01:04 | ED.EXTPRO ---
HPI - Extremity Problem General Chief complaint: Extremity Problem,Nontraumatic Stated complaint: legs hurt from knee to feet on both legs Time Seen by Provider: 07/10/22 23:45 Source: patient Mode of arrival: Ambulatory Limitations: no limitations History of Present Illness HPI Narrative: Patient is a 52-year-old female who is here for evaluation of her legs hurting from her knees down to her ankles. She states that both of her legs her but the right is definitely more so than the left. She is also noticing some swelling. She has spent quite a bit of time standing and walking recently. No skin discolorations. She is having some numbness and tingling in her legs as well. She also has back discomfort but this is not new for her. Related Data Home Medications Medication Instructions Recorded Confirmed fluticasone propionate 50 1 spray intranasal DAILY 09/15/20 10/07/21 mcg/actuation nasal spray,suspension loratadine 10 mg tablet (Allergy 10 mg PO DAILY 09/15/20 10/07/21 Relief (loratadine)) Allergies Allergy/AdvReac Type Severity Reaction Status Date / Time dicyclomine [DICYCLOMINE] Allergy Unknown Verified 07/10/22 23:33 meloxicam [MELOXICAM] Allergy Unknown Verified 07/10/22 23:33 Review of Systems Constitutional Constitutional: Reports system reviewed and no additional complaints, except as documented Gastrointestinal Gastrointestinal: Reports system reviewed and no additional complaints, except as documented Musculoskeletal Musculoskeletal: Reports system reviewed and no additional complaints, except as documented Integumentary/Breasts Skin/Breast: Reports system reviewed and no additional complaints, except as documented Neurologic Neurologic: Reports system reviewed and no additional complaints, except as documented Patient History Medical History Constipation Environmental allergies Headache History of diverticulitis Morbid obesity Osteoarthritis Surgical History History of abdominal surgery History of cholecystectomy Family History Father Heart disease Mother Heart disease Grandmother Heart disease Social History household members: family Smoking Status: Current every day smoker alcohol intake: former Smoking Status: Current every day smoker alcohol intake frequency: holidays/special occasions only Substance Use Type: does not use Exam Initial Vital Signs Initial Vital Signs: Vital Signs Temperature 96.5 F L 07/10/22 23:33 Pulse Rate 71 07/10/22 23:33 Respiratory Rate 15 07/10/22 23:33 Blood Pressure 143/65 H 07/10/22 23:33 Pulse Oximetry 98 07/10/22 23:33 Oxygen Delivery Method 07/10/22 23:33 Const General: cooperative, comfortable and No ill appearing Skin General: no rashes or lesions noted Neuro General: patient alert and patient awake Sensory Exam: no sensory deficits noted Extrem Other: Mild swelling bilateral lower extremities but no pitting edema. She is some tenderness over her calf muscles bilaterally. No hamstring tenderness. Her knees are unremarkable. Bilateral ankles unremarkable. Course Orders Ordered: ED Orders 07/10/22 23:45 US periph venous low extrem bi Stat Vital Signs Vital signs: Vital Signs - 8 hr 07/10/22 23:33 07/11/22 01:31 Temperature 96.5 F L Pulse Rate 71 63 Respiratory Rate 15 20 Blood Pressure 143/65 H 131/60 Pulse Oximetry 98 99 Oxygen Delivery Method Room Air Room Air MDM - Extremity (Nontraumatic) Imaging Data US - DVT: Radiologist's Impression: Negative for bilateral lower extremity DVTs MDM Narrative Medical decision making narrative: Patient's symptoms not consistent with fractures, dislocation, compartment syndrome, DVT, cellulitis. Also have low suspicion for edema secondary to heart failure. I suspect that she is spent more time up and walking recently which has caused her arthritis to flare and caused the swelling in the discomfort that she is having. I did discuss this with her. No indication for further radiologic studies. No indication for lab studies. Will discharge patient home she was given return precautions. She expressed understanding and agreement. Discharge Plan Departure Patient Disposition: Home Clinical Impression: Arthritis, Swelling Instructions: DI for Peripheral Edema -- Bilateral Activity Restrictions/Additional Instructions: I do recommend that you are any keep your feet elevated as this will help with the swelling. Contact your primary doctor for a follow-up. Continue all medications as directed. Return to the emergency department for any new or worsening symptoms. Prescriptions: No Action fluticasone propionate 50 mcg/actuation spray,suspension 1 spray INTRANASAL DAILY Label Comments: USE 2 SPRAYS INTO EACH NOSTRIL DAILY FOR ALLERGY loratadine [Allergy Relief (loratadine)] 10 mg Tablet 10 mg PO DAILY Referrals: Miscellaneous,Doctor, MD [Primary Care Provider] - Stand Alone Forms: Patient Portal/API, Work Release Note
[2022-07-11 01:31] VITALS: BP 131/60; PULSE 63; RESP 20; O2SAT 99
== END 2022-07-11 01:31 | disposition home or self-care (01) ==
PROVIDERS: Emergency Provider Emergency Medicine
DX: M19.90 Unspecified osteoarthritis, unspecified site (principal); R60.9 Edema, unspecified
CPT/HCPCS: 93970; 99283

== ENCOUNTER → 2022-09-26 18:43 | Outpatient (CLI) | payer MEDICAID, OTHER, SELFPAY ==
[2020-09-15 02:58] VITALS: BMI 49.6
--- NOTE | 2022-09-26 | DI.MRI.S_ITS ---
PROCEDURE: MR HEAD/BRAIN WO/W CON INDICATIONS: Dizziness and giddiness TECHNIQUE: Noncontrast axial T1 spin echo, axial T2 fast spin echo, sagittal and axial FLAIR, coronal T2 fast spin echo, axial gradient echo, axial diffusion and ADC through the brain. After the administration of contrast, axial and coronal and sagittal T1 spin echo with fat saturation through the brain. COMPARISON: None. FINDINGS: Image quality: Excellent. CSF spaces: Basal cisterns are patent. No extra-axial fluid collections. Ventricles are normal in size and shape. Brain: No midline shift. No intracranial bleeds or masses. No abnormal intracranial enhancement. There is mild cerebral volume loss for age. There is minimal periventricular white matter chronic small vessel ischemic change. The brainstem appears normal. Diffusion-weighted images demonstrate no acute ischemic insults. No chronic ischemic insults. Normal intravascular flow voids are present. Skull and face: Calvarial marrow is normal in signal. Orbits appear normal. Sinuses: Sinuses and mastoids appear clear. IMPRESSION: 1. Mild volume loss. Minimal small vessel ischemic disease. 2. No acute process. No recent infarct. Dictated by: Shantel Peace M.D. on 09/27/2022 at 8:26 Approved by: Shantel Peace M.D. on 09/27/2022 at 8:27
== END ==
PROVIDERS: Referring Provider Registered Nurse; Visit Provider Registered Nurse
DX: R42 Dizziness and giddiness (principal)
CPT/HCPCS: 70553; A9579

== ENCOUNTER 2023-06-03 23:16 | Emergency (ER) | payer MEDICAID, OTHER, SELFPAY ==
[2020-09-15 02:58] VITALS: BMI 49.6
[2023-06-03 23:24] VITALS: BP 163/65; PULSE 85; RESP 24; TEMP 39.4; O2SAT 98; BMI 49.6
[2023-06-03 23:29] VITALS: PULSE 78; RESP 31; O2SAT 100
[2023-06-03 23:30] VITALS: BP 163/65; PULSE 79; RESP 22; O2SAT 99
--- NOTE | 2023-06-03 23:34 | DI.RAD.S_ITS ---
PROCEDURE: XR CHEST 1V INDICATIONS: fever and sob TECHNIQUE: One view of the chest was acquired. COMPARISON: [facility], CR, XR CHEST 1 VIEW, 06/03/2022, 20:43. [facility], CR, XR CHEST 1V, 10/07/2021, 23:00. [facility], CR, XR CHEST 1V, 09/14/2020, 23:20. FINDINGS: Surgical changes and devices: None. Lungs and pleura: Question small opacity in the right hilar region. Overall not significantly changed compared to CXR from last year. No pleural effusions or pneumothorax. Mediastinum: Mediastinal contours appear normal. Heart size is normal. Bones and chest wall: No suspicious bony lesions. Overlying soft tissues appear unremarkable. IMPRESSION: Question small opacity in the right hilar region. This could be due to scarring or pneumonia. CT chest could be considered for further evaluation. Dictated by: Jun Alvarado M.D. on 06/04/2023 at 0:02 Approved by: Jun Alvarado M.D. on 06/04/2023 at 0:04
--- NOTE | 2023-06-03 23:38 | ED_ITS ---
HPI - SOB/Dyspnea General Chief Complaint: Fever Stated Complaint: coughing/chest pain Time Seen by Provider: 06/03/23 23:34 Source: patient Mode of arrival: Family Vehicle Limitations: no limitations History of Present Illness HPI Narrative: Patient 53-year-old female history of GERD possible CAD presenting today with fever and shortness of breath. She says that she was feeling well and then today she started getting really cold and chilled and then she was really hot. She has a temperature 103. She has a cough. She is chest pain when she coughs. No nausea or vomiting. She is mildly short of breath. Abdominal pain nausea or vomiting. Related Data Home Medications Medication Instructions Recorded Confirmed fluticasone propionate 50 1 spray intranasal DAILY 09/15/20 10/07/21 mcg/actuation nasal spray,suspension loratadine 10 mg tablet (Allergy 10 mg PO DAILY 09/15/20 10/07/21 Relief (loratadine)) Previous Rx's Medication Instructions Recorded furosemide 20 mg tablet (Lasix) 20 mg PO DAILY #2 tabs 06/04/23 Allergies Allergy/AdvReac Type Severity Reaction Status Date / Time dicyclomine [DICYCLOMINE] Allergy Unknown Verified 07/10/22 23:33 meloxicam [MELOXICAM] Allergy Unknown Verified 07/10/22 23:33 Patient History Medical History Constipation Environmental allergies Headache History of diverticulitis Morbid obesity Osteoarthritis Surgical History History of abdominal surgery History of cholecystectomy Family History Father Heart disease Mother Heart disease Grandmother Heart disease Social History household members: family Smoking Status: Current every day smoker alcohol intake: former Smoking Status: Current every day smoker alcohol intake frequency: holidays/special occasions only Substance Use Type: does not use Exam Initial Vital Signs Initial Vital Signs: Vital Signs Temperature 103 F H 06/03/23 23:24 Pulse Rate 85 06/03/23 23:24 Respiratory Rate 24 06/03/23 23:24 Blood Pressure 163/65 H 06/03/23 23:24 Pulse Oximetry 98 06/03/23 23:24 Oxygen Delivery Method Room Air 06/03/23 23:24 GENERAL: Alert 53-year-old female appears to not feel HEENT: Head atraumatic,EOMI, pupils reactive, face symmetric, moist mucous membranes CARDIOVASCULAR: Regular rate and rhythm without murmurs, rubs or gallops. RESPIRATORY: Decreased breath sounds bilaterally mild left lower lobe wheezing ABDOMEN: Soft, nontender. Normoactive bowel sounds all 4 quadrants. No guarding or rebound. EXTREMITIES: Normal range of motion, no clubbing or edema. Neurovascularly intact NEUROLOGICAL: Alert and oriented x4.Normal gait and speech. SKIN: Warm, dry, no laceration, no petechiae, no rashes or lesions. Course Orders Ordered: ED Orders 06/03/23 23:30 Complete Blood Count AUTO DIFF Stat Comprehensive Metabolic Panel Stat Lactate (Lactic Acid) Stat Lipase Stat NT-proBNP (BNP-Adult 18+) Stat Procalcitonin Stat Troponin & CK Cardiac Panel Stat 06/03/23 23:34 XR chest 1V Stat EKG-12 Lead Stat 06/03/23 23:43 Covid-19 + FLU A/B + RSV - PCR Stat Urine Culture Stat Urine Microscopic Stat 06/03/23 23:59 Blood Culture Stat Discontinued Medications Acetaminophen (Acetaminophen 325 Mg Tablet) 975 mg PO NOW ONE Stop: 06/04/23 00:48 Last Admin: 06/04/23 00:57 Dose: 975 mg Documented By: CURT Albuterol/Ipratropium (Albuterol/Ipratropium 3 Ml Ampul) 3 ml INH NOW ONE Stop: 06/03/23 23:35 Last Admin: 06/03/23 23:45 Dose: 3 ml Documented By: CURT Furosemide (Furosemide 40 Mg/4 Ml Vial) 20 mg IV NOW ONE Stop: 06/04/23 00:48 Last Admin: 06/04/23 00:58 Dose: 20 mg Documented By: CURT Sodium Chloride (Normal Saline 0.9%) 1,000 mls @ 150 mls/hr IV CONT SEBASTIAN Last Infusion: 06/04/23 01:07 Dose: Infused Documented By: Admin: 06/04/23 00:00 Dose: 150 mls/hr Documented By: RALPH Vital Signs Vital signs: Vital Signs - 8 hr 06/03/23 23:24 06/03/23 23:29 06/03/23 23:30 Temperature 103 F H Pulse Rate 85 78 79 Respiratory Rate 24 31 H 22 Blood Pressure 163/65 H 163/65 H Pulse Oximetry 98 100 99 Oxygen Delivery Method Room Air Room Air 06/04/23 00:00 06/04/23 00:24 06/04/23 00:25 Temperature Pulse Rate 79 85 Respiratory Rate 34 H 26 H Blood Pressure 151/64 H Pulse Oximetry 100 96 Oxygen Delivery Method 06/04/23 00:25 06/04/23 00:30 06/04/23 00:57 Temperature 103 F H Pulse Rate 86 86 Respiratory Rate 31 H 33 H Blood Pressure Pulse Oximetry 97 97 Oxygen Delivery Method 06/04/23 01:00 06/04/23 01:30 06/04/23 01:43 Temperature 101.3 F H Pulse Rate 87 85 Respiratory Rate 33 H 28 H Blood Pressure 135/60 Pulse Oximetry 96 96 Oxygen Delivery Method Room Air MDM - SOB/Dyspnea Lab Data 06/03/23 23:30 06/03/23 23:30 Labs: Lab Results 06/03/23 06/03/23 Range/Units 23:30 23:43 WBC 5.1 (4.5-11.0) X10^3/uL RBC 3.87 L (4.0-5.2) X10^6/uL Hgb 11.4 L (12.0-16.0) g/dL Hct 35.2 L (36-46) % MCV 91.0 (80-100) fL MCH 29.6 (26-34) PG MCHC 32.5 (30-36) % RDW 14.3 (11.6-14.8) % Plt Count 312 (150-400) X10^3/uL Neut % (Auto) 60.3 (50-75) % Lymph % (Auto) 25.0 (25-40) % Bennett % (Auto) 13.2 (3-14) % Eos % (Auto) 0.9 L (2-4) % Baso % (Auto) 0.6 (0-2) % Neut # (Auto) 3000 (8992-6719) /uL Lymph # (Auto) 1300 (5196-6800) /uL Bennett # (Auto) 700 (0-900) /uL Eos # (Auto) 0 (0-450) /uL Baso # (Auto) 0 (0-100) /uL Sodium 134 L (137-145) mmol/L Potassium 3.9 (3.4-5.1) mmol/L Chloride 103 (98-107) mmol/L Carbon Dioxide 25 (22-32) mmol/L BUN 12 (7-17) mg/dL Creatinine 0.93 (0.52-1.04) mg/dL Estimated GFR > 60 (>60) mL/min BUN/Creatinine Ratio 12.9 (6-22) Glucose 123 H (70-100) mg/dL Lactate 1.3 (0.7-2.1) mmol/L Calcium 8.4 (8.4-10.2) mg/dL Total Bilirubin 0.6 (0.2-1.3) mg/dL AST 40 H (14-36) IU/L ALT 22 (<35) IU/L Alkaline Phosphatase 85 (38-126) U/L Total Creatine Kinase 110 (30-135) U/L Troponin I < 0.012 (0.01-0.034) ng/mL NT-Pro-B Natriuret Pep 1280 H (<125) pg/mL Total Protein 7.9 (6.3-8.2) g/dL Albumin 3.8 (3.5-5.0) g/dL Globulin 4.1 (1.7-4.1) g/dL Albumin/Globulin Ratio 0.9 L (1.0-2.8) Lipase 120 (23-300) U/L Procalcitonin 0.11 (<0.5) ng/mL Urine RBC 1-5/hpf (0-5/HPF) Urine WBC 5-10/hpf H (0-5/HPF) Ur Squamous Epith Cells 0-1 /hpf (0-5/HPF) Urine Bacteria Few (2-10) H (None) Ur Culture Indicated? Specimen cultured SARS-CoV-2 (PCR) Negative (Negative) Influenza A (RT-PCR) Flu a positive H (NEGATIVE) Influenza B (RT-PCR) Flu b negative (NEGATIVE) RSV (PCR) Negative (Negative) Urine Dip Bedside Urine Glucose Negative Bedside Urine Bilirubin - Negative Bedside Urine Ketone - Negative Urine Specific [place] 1.020 Bedside Urine Occult Blood +++ Bedside Urine pH 6.0 Bedside Urine Protein +/- 15 Bedside Urine Urobilinogen - Negative Bedside Urine Nitrite - Negative Bedside Urine Leukocytes +++ 500 Esterase Imaging Data Chest x-ray: Radiologist's Impression: PROCEDURE: XR CHEST 1V INDICATIONS: fever and sob TECHNIQUE: One view of the chest was acquired. COMPARISON: [facility], CR, XR CHEST 1 VIEW, 06/03/2022, 20:43. [facility], CR, XR CHEST 1V, 10/07/2021, 23:00. [facility], CR, XR CHEST 1V, 09/14/2020, 23:20. FINDINGS: Surgical changes and devices: None. Lungs and pleura: Question small opacity in the right hilar region. Overall not significantly changed compared to CXR from last year. No pleural effusions or pneumothorax. Mediastinum: Mediastinal contours appear normal. Heart size is normal. Bones and chest wall: No suspicious bony lesions. Overlying soft tissues appear unremarkable. IMPRESSION: Question small opacity in the right hilar region. This could be due to scarring or pneumonia. CT chest could be considered for further evaluation. Dictated by: Jun Alvarado M.D. on 06/04/2023 at 0:02 ECG Data Interpretation: Sinus rhythm rate 80 MN interval 96 QRS 104 QTC 468 T-wave inversion noted in V 1 V2 similar to previous incomplete right bundle-branch do not agree with computer of STEMI, no ST elevations or depressions, EKG very similar to prior in 10/07/21 MDM Narrative Medical decision making narrative: Patient 53-year-old female presents today febrile with cough. She is only having chest pain when she coughs. She is short of breath but not hypoxic. Blood work has been reviewed she has no leukocytosis or anemia, troponin undetectable, BNP 1280 [id number]. Positive for influenza A, lactate 1.3, procalcitonin 0.11 Chest x-ray reviewed cardiomegaly EKG have been reviewed At this time patient is febrile with cough with a positive influenza a test. Chest x-ray is clear but BNP is significantly more elevated than previous. Possible some fluid retention. She is given Lasix and albuterol and actually is breathing a bit better. She received Tylenol for her fever as well temperature is coming down. No concern for sepsis most likely related to viral illness. She previously had a myocardial stress test in 2020 which showed an EF 71%. She overall is doing better. IV fluids were ordered 150 cc hour but unfortunately were bolused in, he seems to be tolerating the fluids without decompensation. She is ambulatory to restroom multiple times without assistance or significant respiratory distress. At this time she is febrile positive for influenza without evidence of sepsis. No need for antibiotics. Possible small CHF without history of CHF. She has no elevated troponin no EKG changes. Not experiencing chest pain in the ED. Fever is going down. Blood cultures are pending At this time recommend supportive care only given return precautions Discharge Plan Departure Patient Disposition: Home Clinical Impression: Influenza A, CHF (congestive heart failure) Instructions: Heart Failure, DI for Influenza -- Adult Activity Restrictions/Additional Instructions: *You have been diagnosed with influenza a and CHF *What to do: At this time you have influenza which is going to cause body aches fevers chills. You also have mild case of congestive heart failure. He *Continue to take medications as directed Lasix 20 mg once a day for 2 days-->[place] Tylenol 1000 mg every 6 hours if needed for pain or fever *Follow up with your primary care provider in 2-3 days or call [phone] *Return to ER if you should have increasing shortness of breath not tolerating fluids, or any new, worsening or concerning symptoms Prescriptions: New furosemide [Lasix] 20 mg tablet 20 mg PO DAILY Qty: 2 0RF No Action fluticasone propionate 50 mcg/actuation spray,suspension 1 spray INTRANASAL DAILY Patient Comments: USE 2 SPRAYS INTO EACH NOSTRIL DAILY FOR ALLERGY loratadine [Allergy Relief (loratadine)] 10 mg Tablet 10 mg PO DAILY Stand Alone Forms: Patient Portal/API
[2023-06-03 23:45] LABS: Add Manual Diff / Slide Review NO; Basophils Absolute Auto 0 /uL (0-100); Basophils Percent Auto 0.6 % (0-2); Eosinophils Absolute Auto 0 /uL (0-450); Eosinophils Percent Auto 0.9 % (2-4); Hematocrit 35.2 % (36-46); Hemoglobin 11.4 g/dL (12.0-16.0); Lymphocytes Absolute Auto 1300 /uL (1100-4500); Mean Corpuscular HGB Conc 32.5 % (30-36); Mean Corpuscular Hemoglobin 29.6 PG (26-34); Monocytes Absolute Auto 700 /uL (0-900); Monocytes Percent Auto 13.2 % (3-14); Neutrophils Absolute Auto 3000 /uL (1500-7000); Neutrophils Percent Auto 60.3 % (50-75); Platelet Count 312 X10^3/uL (150-400); Red Blood Cell Count 3.87 X10^6/uL (4.0-5.2); Red Cell Distribution Width 14.3 % (11.6-14.8); White Blood Cell Count 5.1 X10^3/uL (4.5-11.0)
[2023-06-03] MEDS: ALBUTEROL/IPRATROPIUM 3 ML AMPUL INH (23:45)
[2023-06-03 23:53] LABS: Lactate (Lactic Acid) 1.3 mmol/L (0.7-2.1)
[2023-06-03 23:56] LABS: Alanine Aminotransferase 22 IU/L (<35); Albumin 3.8 g/dL (3.5-5.0); Albumin Globulin Ratio 0.9 (1.0-2.8); Alkaline Phosphatase 85 U/L (38-126); Aspartate Aminotransferase 40 IU/L (14-36); BUN Creatinine Ratio 12.9 (6-22); Bilirubin Total 0.6 mg/dL (0.2-1.3); Blood Urea Nitrogen 12 mg/dL (7-17); Calcium 8.4 mg/dL (8.4-10.2); Carbon Dioxide 25 mmol/L (22-32); Chloride 103 mmol/L (98-107); Creatine Kinase 110 U/L (30-135); Estimated Glomerular Filt Rate > 60 mL/min (>60); Globulin 4.1 g/dL (1.7-4.1); Glucose 123 mg/dL (70-100); HEMOLYSIS < 15 (0-50); Lipase 120 U/L (23-300); Potassium 3.9 mmol/L (3.4-5.1); Sodium 134 mmol/L (137-145); Total Protein 7.9 g/dL (6.3-8.2)
[2023-06-04] VITALS (8 sets, daily range): BP systolic 135–151; BP diastolic 60–64; PULSE 79–87; RESP 26–34; TEMP 38.5–39.4; O2SAT 96–100
[2023-06-04] MEDS: SODIUM CHLORIDE 0.9% 1,000 ML 150 ML IV
[2023-06-04 00:04] LABS: NT-proBNP (BNP-Adult 18+) 1280 pg/mL (<125)
[2023-06-04 00:06] LABS: Troponin I < 0.012 ng/mL (0.01-0.034)
[2023-06-04 00:09] LABS: Bacteria Urine Few (2-10); Culture Indicated Urine Specimen Cultured; RBC Urine 1-5/HPF (0-5/HPF); Squamous Epithelial Cell Urine 0-1 /HPF (0-5/HPF); WBC Urine 5-10/HPF (0-5/HPF)
[2023-06-04 00:11] LABS: Procalcitonin 0.11 ng/mL (<0.5)
[2023-06-04 00:24] LABS: Influenza A - CEPHEID Flu A POSITIVE (NEGATIVE); Influenza B - CEPHEID Flu B NEGATIVE (NEGATIVE); Respiratory Syncytial Virus Negative (Negative)
[2023-06-04 00:28] LABS: COVID-19 CEPHEID 4-PLEX PCR Negative (Negative)
[2023-06-04] MEDS: ACETAMINOPHEN 325 MG TABLET 975 MG PO (00:57)
[2023-06-04] MEDS: FUROSEMIDE 40 MG/4 ML VIAL 20 MG IV (00:58)
== END 2023-06-04 01:46 | disposition home or self-care (01) ==
PROVIDERS: Emergency Provider Emergency Medicine
DX: J10.1 Influenza due to other identified influenza virus with other respiratory manifestations (principal); I50.9 Heart failure, unspecified; R07.9 Chest pain, unspecified; Z20.822 Contact with and (suspected) exposure to COVID-19
CPT/HCPCS: 0241U; 36415; 71045; 80053; 81003; 81015; 82550; 83605; 83690; 83880; 84145; 84484; 85025; 87040; 87077; 87086; 87186; 93005; 93010; 96361; 96374; 99284; J1940

== ENCOUNTER 2024-07-30 19:41 | Emergency (ER) | payer MEDICAID, SELFPAY ==
[2020-09-15 02:58] VITALS: BMI 49.6
[2024-07-30 19:50] VITALS: BP 104/51; PULSE 105; RESP 18; TEMP 37.6; O2SAT 97; BMI 67.3
[2024-07-30 20:40] LABS: Influenza A - CEPHEID Flu A NEGATIVE (NEGATIVE); Influenza B - CEPHEID Flu B NEGATIVE (NEGATIVE); Respiratory Syncytial Virus Negative (Negative)
[2024-07-30 20:41] LABS: COVID-19 CEPHEID 4-PLEX PCR Negative (Negative)
--- NOTE | 2024-07-30 20:48 | DI.RAD.S_ITS ---
PROCEDURE: XR CHEST 2V INDICATIONS: URI x 2 weeks TECHNIQUE: 2 views of the chest were acquired. COMPARISON: [facility], CR, XR CHEST 1V, 06/03/2023, 23:36. [facility], CR, XR CHEST 1V, 10/07/2021, 23:00. [facility], CR, XR CHEST 2 VIEWS, 02/18/2024, 21:24. FINDINGS AND IMPRESSION: Very low lung volumes. Moderately prominent interstitium, with possible mild airspace disease in the perihilar region and lower lung, likely infectious. No pleural effusions. Consider future imaging surveillance to assess for resolution. Heart size is at the upper limit of normal, unchanged. Degenerative osseous findings. Dictated by: Alvin Randolph M.D. on 07/30/2024 at 21:18 Approved by: Alvin Randolph M.D. on 07/30/2024 at 21:19
[2024-07-30 21:50] VITALS: BP 133/60; PULSE 101; RESP 24; O2SAT 98
[2024-07-30 22:00] VITALS: BP 132/58; PULSE 100; RESP 24; O2SAT 96
[2024-07-30 22:30] VITALS: BP 126/60; PULSE 105; O2SAT 97
[2024-07-30 23:00] VITALS: BP 123/57; PULSE 108; O2SAT 95
[2024-07-30 23:30] VITALS: BP 117/58; PULSE 105; O2SAT 94
--- NOTE | 2024-07-30 23:30 | ED.URI ---
HPI - URI/Sore Throat General Chief Complaint: Upper Respiratory Symptoms Stated Complaint: not feeling well x 3 days Time Seen by Provider: 07/30/24 23:29 Source: patient Mode of arrival: Wheelchair History of Present Illness HPI Narrative: 54-year-old female with a past medical history of GERD, hypertension, hyperlipidemia presenting for flu-like symptoms such as headache fever chills myalgias ongoing persistent for past 3 days. She states that she has been having myalgias cough but no actual chest pain shortness of breath. She states that she has been taking Tylenol without much relief therefore decided come into the ED for further evaluation treatment. She does describe a dull headache but no visual disturbances nausea vomiting abdominal pain or any other GI/ symptoms at this time. Related Data Home Medications Medication Instructions Recorded Confirmed fluticasone propionate 50 1 spray intranasal DAILY 09/15/20 07/30/24 mcg/actuation nasal spray,suspension loratadine 10 mg tablet (Allergy 10 mg PO DAILY 09/15/20 07/30/24 Relief (loratadine)) atorvastatin 40 mg tablet 40 mg PO DAILY 07/30/24 07/30/24 metoprolol tartrate 25 mg tablet 25 mg PO BID 07/30/24 07/30/24 omeprazole 20 mg capsule,delayed 20 mg PO QAM 07/30/24 07/30/24 release Previous Rx's Medication Instructions Recorded furosemide 20 mg tablet (Lasix) 20 mg PO DAILY #2 tabs 06/04/23 doxycycline hyclate 100 mg capsule 100 mg PO BID 7 days #14 caps 07/31/24 Allergies Allergy/AdvReac Type Severity Reaction Status Date / Time dicyclomine [DICYCLOMINE] Allergy Unknown Verified 07/10/22 23:33 meloxicam [MELOXICAM] Allergy Unknown Verified 07/10/22 23:33 Review of Systems Review of Systems Narrative: General: Positive fever chills myalgias HEENT: Denies headache, eye drainage, eye irritation, head trauma, sore throat, voice change Cardiovascular: Denies any chest pain, palpitations, tachycardia Respiratory: Positive cough, denies shortness breath wheeze stridor GI/: Denies any abdominal pain, nausea, vomiting, diarrhea, bright red blood per rectum, melanotic stools, urinary frequency, urinary retention, dysuria, hematuria MSK: Denies any joint pain, swelling Skin: Denies any rashes, lesions, discoloration Neuro: Denies any headache, lightheadedness, dizziness, fainting, weakness Psych: Denies SI/HI Patient History Medical History Constipation Environmental allergies Headache History of diverticulitis Morbid obesity Osteoarthritis Surgical History History of abdominal surgery History of cholecystectomy Family History Father Heart disease Mother Heart disease Grandmother Heart disease Social History household members: family Smoking Status: Current every day smoker alcohol intake: former Smoking Status: Current every day smoker tobacco type: cigarettes alcohol intake frequency: holidays/special occasions only Exam Narrative Exam Narrative: General: Cooperative, comfortable, well-developed, not in acute distress HEENT: Normocephalic, atraumatic, PERRLA, normal sclera, eyelids normal, Neck: Active full range of motion, atraumatic Chest: Normal to inspection, negative crepitus, no overlying erythema ecchymosis Respiratory: Normal respiratory effort, not in acute respiratory distress, clear to auscultation bilaterally negative cough, wheeze, tachypnea, rhonchi, rales Cardiology: Regular rate rhythm negative gallop, murmur, rubs GI/: Normal to inspection, soft, nonrigid, no tenderness to palpation, exam deferred MSK: Full range of active range of motion of all 4 extremities, atraumatic Skin: No rashes lesions noted Neuro: Alert awake oriented x3, moves all 4 extremities spontaneously, cranial nerves intact, able to answer all questions appropriately follows commands appropriately Psych: Cooperative, negative suicidal or homicidal ideations Initial Vital Signs Initial Vital Signs: Vital Signs Temperature 99.7 F H 07/30/24 19:50 Pulse Rate 105 H 07/30/24 19:50 Respiratory Rate 18 07/30/24 19:50 Blood Pressure 104/51 L 07/30/24 19:50 Pulse Oximetry 97 07/30/24 19:50 Oxygen Delivery Method Room Air 07/30/24 19:50 Course Orders Ordered: ED Orders 07/30/24 19:57 Covid-19 + FLU A/B + RSV - PCR Stat 07/30/24 20:48 CXR [XR chest 2V] Stat 07/30/24 23:48 CBC Auto Diff [Complete Blood Count AUTO DIFF] Stat CMP [Comprehensive Metabolic Panel] Stat Lipase Stat MAG [Magnesium] Stat Discontinued Medications Doxycycline Hyclate (Doxycycline Hyclate 100 Mg Tablet) 100 mg PO NOW ONE Stop: 07/30/24 23:40 Last Admin: 07/30/24 23:54 Dose: 100 mg Documented By: ZENON Sodium Chloride (Normal Saline 0.9%) 1,000 mls @ 1,000 mls/hr IV BOLUS ONE Stop: 07/31/24 00:38 Last Infusion: 07/31/24 01:11 Dose: Infused Documented By: Admin: 07/30/24 23:53 Dose: 1,000 mls/hr Documented By: ZENON Ketorolac Tromethamine (Ketorolac 30 Mg/Ml Vial) 15 mg IV NOW ONE Stop: 07/30/24 23:40 Last Admin: 07/30/24 23:54 Dose: 15 mg Documented By: ZENON Vital Signs Vital signs: Vital Signs - 8 hr 07/30/24 19:50 07/30/24 21:50 07/30/24 21:50 Temperature 99.7 F H Pulse Rate 105 H 101 H Respiratory Rate 18 24 Blood Pressure 104/51 L 133/60 Pulse Oximetry 97 98 Oxygen Delivery Method Room Air Room Air 07/30/24 22:00 07/30/24 22:00 07/30/24 22:30 Temperature Pulse Rate 100 H Respiratory Rate 24 Blood Pressure 132/58 L 126/60 Pulse Oximetry 96 Oxygen Delivery Method Room Air 07/30/24 22:30 07/30/24 22:30 07/30/24 22:30 Temperature Pulse Rate Respiratory Rate Blood Pressure 126/60 126/60 126/60 Pulse Oximetry Oxygen Delivery Method 07/30/24 22:30 07/30/24 22:30 07/30/24 22:30 Temperature Pulse Rate Respiratory Rate Blood Pressure 126/60 126/60 126/60 Pulse Oximetry Oxygen Delivery Method 07/30/24 22:30 07/30/24 23:00 07/30/24 23:00 Temperature Pulse Rate 105 H 108 H Respiratory Rate Blood Pressure 123/57 L Pulse Oximetry 97 95 Oxygen Delivery Method 07/30/24 23:30 07/30/24 23:30 07/31/24 00:00 Temperature Pulse Rate 105 H 108 H Respiratory Rate Blood Pressure 117/58 L Pulse Oximetry 94 92 Oxygen Delivery Method 07/31/24 00:01 07/31/24 00:01 07/31/24 00:36 Temperature Pulse Rate 102 H 107 H Respiratory Rate 24 26 H Blood Pressure 115/54 L Pulse Oximetry 96 99 Oxygen Delivery Method Room Air Room Air 07/31/24 00:36 Temperature Pulse Rate Respiratory Rate Blood Pressure 123/60 Pulse Oximetry Oxygen Delivery Method MDM - URI/Sore Throat Differential Diagnosis Differential diagnosis: Likely upper respiratory infection, bronchitis and influenza Lab Data 07/30/24 23:48 07/30/24 23:48 Labs: Lab Results 07/30/24 07/30/24 Range/Units 19:57 23:48 WBC 11.9 H (4.5-11.0) X10^3/uL RBC 4.23 (4.0-5.2) X10^6/uL Hgb 12.2 (12.0-16.0) g/dL Hct 37.7 (36-46) % MCV 89.3 (80-100) fL MCH 28.9 (26-34) PG MCHC 32.4 (30-36) % RDW 15.8 H (11.6-14.8) % Plt Count 246 (150-400) X10^3/uL Neut % (Auto) 64.7 (50-75) % Lymph % (Auto) 26.3 (25-40) % Greene % (Auto) 8.4 (3-14) % Eos % (Auto) 0.2 L (2-4) % Baso % (Auto) 0.4 (0-2) % Neut # (Auto) 7700 H (5522-2367) /uL Lymph # (Auto) 3100 (6438-7748) /uL Greene # (Auto) 1000 H (0-900) /uL Eos # (Auto) 0 (0-450) /uL Baso # (Auto) 0 (0-100) /uL Sodium 135 L (137-145) mmol/L Potassium 4.1 (3.4-5.1) mmol/L Chloride 104 (98-107) mmol/L Carbon Dioxide 22 (22-32) mmol/L BUN 15 (7-17) mg/dL Creatinine 1.32 H (0.52-1.04) mg/dL Estimated GFR 47 L (>60) mL/min BUN/Creatinine Ratio 11.4 (6-22) Glucose 117 H (70-100) mg/dL Calcium 8.3 L (8.4-10.2) mg/dL Magnesium 2.1 (1.6-2.3) mg/dL Total Bilirubin 0.9 (0.2-1.3) mg/dL AST 21 (14-36) IU/L ALT 15 (<35) IU/L Alkaline Phosphatase 96 (38-126) U/L Total Protein 8.3 H (6.3-8.2) g/dL Albumin 3.8 (3.5-5.0) g/dL Globulin 4.5 H (1.7-4.1) g/dL Albumin/Globulin Ratio 0.8 L (1.0-2.8) Lipase 58 (23-300) U/L SARS-CoV-2 (PCR) Negative (Negative) Influenza A (RT-PCR) Flu a negative (NEGATIVE) Influenza B (RT-PCR) Flu b negative (NEGATIVE) RSV (PCR) Negative (Negative) Imaging Data Chest x-ray: Radiologist's Impression: [address] [address] XRay Report Signed Patient: Leslie Smith MR#: [id number] : 1970 Acct:[id number] Age/Sex: 54 / F Date of Service: 07/30/24 Loc: ED Accession Number: [id number] Procedure: XR chest 2V Ordering Provider: Chadwick Brock D.O. PROCEDURE: XR CHEST 2V INDICATIONS: URI x 2 weeks TECHNIQUE: 2 views of the chest were acquired. COMPARISON: [facility], CR, XR CHEST 1V, 06/03/2023, 23:36. [facility], CR, XR CHEST 1V, 10/07/2021, 23:00. [facility], CR, XR CHEST 2 VIEWS, 02/18/2024, 21:24. FINDINGS AND IMPRESSION: Very low lung volumes. Moderately prominent interstitium, with possible mild airspace disease in the perihilar region and lower lung, likely infectious. No pleural effusions. Consider future imaging surveillance to assess for resolution. Heart size is at the upper limit of normal, unchanged. Degenerative osseous findings. MDM Narrative Medical decision making narrative: 54-year-old female with a past medical history of hyperlipidemia hypertension GERD comes into the ED from home for evaluation of flu-like symptoms states she has been having a dull headache myalgias chills for the past 3 days. X-ray showing possible pneumonia, respiratory panel negative. Patient had lab work with slight leukocytosis at 11.9 creatinine 1.32 otherwise lab work unremarkable, patient's symptoms more likely secondary to pneumonia. Patient not requiring any supplemental oxygen not meeting any patient with curb 65 score of 0. She will be sent home with oral antibiotics for her pneumonia instructed to follow up with primary care in outpatient setting, she was given strict return precautions she verbalized understanding of this and agrees to being discharged home with outpatient follow up Discharge Plan Departure Patient Disposition: Home Clinical Impression: Pneumonia Instructions: DI for Pneumonia -- Adult Activity Restrictions/Additional Instructions: Please follow up with your primary care doctor Please read the discharge instructions sheet carefully and bring all papers to all doctor follow-up visits, as it may contain information that your doctor may want to see. Disease processes change and evolve, if your symptoms worsen or if you develop any new symptoms that are concerning to you please return for evaluation. Your evaluation today does not show any evidence of any life-threatening/serious illnesses requiring admission to the hospital or surgery. Please follow-up with your doctor for re-evaluation in approximately 1 day. Seek immediate medical attention for any worrisome symptoms. *If you do not have a primary care provider please contact the [facility] Resource line at [phone]. They will ask some questions about your medical history and help get you set up with a doctor in the community. Prescriptions: New doxycycline hyclate 100 mg capsule 100 mg PO BID 7 Days Qty: 14 0RF No Action fluticasone propionate 50 mcg/actuation spray,suspension 1 spray INTRANASAL DAILY Patient Comments: USE 2 SPRAYS INTO EACH NOSTRIL DAILY FOR ALLERGY loratadine [Allergy Relief (loratadine)] 10 mg Tablet 10 mg PO DAILY furosemide [Lasix] 20 mg tablet 20 mg PO DAILY Qty: 2 0RF atorvastatin 40 mg tablet 40 mg PO DAILY omeprazole 20 mg capsule,delayed release(DR/EC) 20 mg PO QAM metoprolol tartrate 25 mg tablet 25 mg PO BID Referrals: Flores Pollock PA-C [Primary Care Provider] - Stand Alone Forms: Patient Portal/API/Survey
[2024-07-30] MEDS: SODIUM CHLORIDE 0.9% 1,000 ML 1000 ML IV (23:53)
[2024-07-30] MEDS: KETOROLAC 30 MG/ML VIAL 15 MG IV (23:54)
[2024-07-30] MEDS: DOXYCYCLINE HYCLATE 100 MG TABLET PO (23:54)
[2024-07-30 23:56] LABS: Add Manual Diff / Slide Review NO; Basophils Absolute Auto 0 /uL (0-100); Basophils Percent Auto 0.4 % (0-2); Eosinophils Absolute Auto 0 /uL (0-450); Eosinophils Percent Auto 0.2 % (2-4); Hematocrit 37.7 % (36-46); Hemoglobin 12.2 g/dL (12.0-16.0); Lymphocytes Absolute Auto 3100 /uL (1100-4500); Lymphocytes Percent Auto 26.3 % (25-40); Mean Corpuscular HGB Conc 32.4 % (30-36); Mean Corpuscular Hemoglobin 28.9 PG (26-34); Mean Corpuscular Volume 89.3 fL (80-100); Monocytes Absolute Auto 1000 /uL (0-900); Monocytes Percent Auto 8.4 % (3-14); Neutrophils Absolute Auto 7700 /uL (1500-7000); Neutrophils Percent Auto 64.7 % (50-75); Platelet Count 246 X10^3/uL (150-400); Red Blood Cell Count 4.23 X10^6/uL (4.0-5.2); Red Cell Distribution Width 15.8 % (11.6-14.8); White Blood Cell Count 11.9 X10^3/uL (4.5-11.0)
[2024-07-31] VITALS: PULSE 108; O2SAT 92
[2024-07-31 00:01] VITALS: BP 115/54; PULSE 102; RESP 24; O2SAT 96
[2024-07-31 00:09] LABS: Alanine Aminotransferase 15 IU/L (<35); Albumin 3.8 g/dL (3.5-5.0); Albumin Globulin Ratio 0.8 (1.0-2.8); Alkaline Phosphatase 96 U/L (38-126); Aspartate Aminotransferase 21 IU/L (14-36); BUN Creatinine Ratio 11.4 (6-22); Bilirubin Total 0.9 mg/dL (0.2-1.3); Blood Urea Nitrogen 15 mg/dL (7-17); Calcium 8.3 mg/dL (8.4-10.2); Carbon Dioxide 22 mmol/L (22-32); Chloride 104 mmol/L (98-107); Estimated Glomerular Filt Rate 47 mL/min (>60); Globulin 4.5 g/dL (1.7-4.1); Glucose 117 mg/dL (70-100); HEMOLYSIS < 15 (0-50); Lipase 58 U/L (23-300); Magnesium 2.1 mg/dL (1.6-2.3); Potassium 4.1 mmol/L (3.4-5.1); Sodium 135 mmol/L (137-145); Total Protein 8.3 g/dL (6.3-8.2)
[2024-07-31 00:36] VITALS: BP 123/60; PULSE 107; RESP 26; O2SAT 99
--- NOTE | 2024-07-31 00:43 | PC.NURSE ---
Pt ambulatory to restroom without difficulty or assistance
[2024-07-31 01:00] VITALS: BP 132/57; PULSE 97; RESP 26; O2SAT 95
== END 2024-07-31 01:28 | disposition home or self-care (01) ==
PROVIDERS: Emergency Provider Student in an Organized Health Care Education/Training Program; PCP Physician Assistant
DX: J18.9 Pneumonia, unspecified organism (principal)
CPT/HCPCS: 0241U; 36415; 71046; 80053; 83690; 83735; 85025; 96361; 96374; 99284; J1885